=== PATIENT | male | born 1955 | race Caucasian/White ===

== ENCOUNTER 2022-10-08 14:56 | Inpatient (IN) | payer OTHER, SELFPAY ==
[2022-10-08] VITALS (14 sets, daily range): BP systolic 111–141; BP diastolic 70–102; PULSE 89–120; RESP 12–24; TEMP 36.9–37.2; O2SAT 93–98; BMI 24.3
--- NOTE | 2022-10-08 15:40 | ED_ITS ---
HPI - General Adult General Time Seen by Provider: 15:40 Date Seen: 10/08/22 Chief complaint: Shortness of Breath/Dyspnea Stated complaint: Short of Breath worried about DVT Time Seen by Provider: 10/08/22 15:35 Source: patient and RN notes reviewed Mode of arrival: ambulatory Limitations: no limitations History of Present Illness HPI narrative: Patient is a 67-year-old male sent in from [facility] urgent care with left lower extremity discomfort pain with history DVT. His D-dimer was greater than 20 at the urgent care and he was sent here. He has a history of a DVT in this leg a few years ago after travel. He traveled to [place] in August in returned back home on September 30. He does wear compression stockings. He has also had a bit of a respiratory illness for about 2 weeks. Today started to feel short of breath but no chest pain. The shortness of breath is particularly dyspnea on exertion. No fevers or chills. His cough has been dry, present for about 2 weeks, has had sinus and nasal congestion. His pulse was 113 in urgent care but blood pressure was normal 132/76. He was afebrile. O2 sats 98% on room air. He does note with activity his O2 sats dipped down to about 92% but come right back up. His white blood count was normal at 8700, hemoglobin normal at 13.6, platelet count [id number]. His electrolytes were all normal, creatinine normal at 0.98 with an estimated GFR of 85. Patient had a left lower extremity DVT a few years ago thought to be provoked by travel, has had a hemorrhoidectomy. Does have reflux for which he takes ome prazole daily. Otherwise denies any other medical issues. Patient reports that he took Eliquis with his DVT prior. No tobacco products, does have 2-3 alcoholic beverages a day in the form of wine. Related Data Home Medications Medication Instructions Recorded Confirmed omeprazole 20 mg capsule,delayed mg 10/08/22 release Allergies Allergy/AdvReac Type Severity Reaction Status Date / Time No Known Drug Allergies Allergy Verified 10/08/22 15:41 Review of Systems Status of ROS: Reports: 10 or more systems reviewed and unremarkable except as noted in History and below [facility] Medical History (Updated 10/08/22 @ 21:25 by Johana Cruz MD) DVT (deep venous thrombosis) Surgical History (Updated 10/08/22 @ 21:25 by Johana Cruz MD) H/O: hemorrhoidectomy History of colonoscopy Social History (Updated 10/08/22 @ 21:20 by Johana Cruz MD) Narrative: Lives with in [place]. 2 adult children. 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 PCP: Bo Smoking Status: Never smoker Do you use any of these nicotine containing products: None How often do you have a drink containing alcohol: never AUDIT-C Alcohol total score: 0 Non-prescribed substance use: denies use Exam Const: Vital Signs, click to edit/add: Vital Signs - 24 hr 10/08/22 15:41 10/08/22 16:00 10/08/22 16:30 Temperature 98.9 F Pulse Rate [Right Pulse Oximeter] 115 H 104 H 103 H Respiratory Rate 24 12 20 Blood Pressure [Ri ght Upper Arm] 141/102 H 129/88 125/84 Pulse Oximetry 98 95 96 Oxygen Delivery Me thod Room Air Room Air Room Air 10/08/22 17:00 10/08/22 17:30 10/08/22 18:00 Temperature Pulse Rate [Right Pulse Oximeter] 105 H 108 H 120 H Respiratory Rate 21 17 24 Blood Pressure [Ri ght Upper Arm] 111/84 126/82 118/86 Pulse Oximetry 95 96 96 Oxygen Delivery Me thod Room Air Room Air Room Air 10/08/22 18:30 10/08/22 19:00 10/08/22 19:30 Temperature Pulse Rate [Right Pulse Oximeter] 112 H 111 H 107 H Respiratory Rate 17 22 16 Blood Pressure [Ri ght Upper Arm] 129/85 119/79 113/80 Pulse Oximetry 95 95 94 Oxygen Delivery Me thod Room Air Room Air Room Air 10/08/22 20:00 10/08/22 20:30 Temperature Pulse Rate [Right Pulse Oximeter] 105 H 109 H Respiratory Rate 16 14 Blood Pressure [Ri ght Upper Arm] 111/76 128/84 Pulse Oximetry 93 97 Oxygen Delivery Me thod Room Air Room Air Documenting provider has reviewed patient's vital signs: yes Common normals: no apparent distress, average body habitus, oriented x3, no limitations, healthy appearing, alert and well nourished General appearance: cooperative, comfortable, well kempt and well developed HENMT: Common normals: normocephalic, head/scalp atraumatic and hearing grossly normal bilaterally Head and scalp: normocephalic and atraumatic Eye: Common normals: PERRL, EOMs intact bilaterally, conjunctivae normal and no scleral icterus Conjunctiva: conjunctiva(e) normal Pupil: PERRL Neck & C-Spine: Common normals: full ROM, no lymphadenopathy, supple, no meningeal signs, no JVD and thyroid normal Thyroid: thyroid normal Resp: Common normals: normal respiratory effort, no retractions, no use of accessory muscles and clear to auscultation bilaterally Auscultation: clear to auscultation bilaterally Cardio: Common normals: no JVD, regular rhythm, S1 normal heart sound, S2 normal heart sound, no gallops, no clicks and no murmurs Rate: tachycardic Rhythm: regular rhythm Heart sounds: S1 normal and S2 normal GI: Common normals: Normal to inspection, nondistended, normoactive bowel sounds present, soft to palpation, non-tender, no hepatosplenomegaly and no masses Palpation: soft and no hepatosplenomegaly Extremity: Other: Has bilateral compression stockings on, no underlying edema. Neuro: Common normals: oriented x3 Sensorium/orientation: alert Meningeal signs: no meningeal signs Psych: Appearance: well kempt Course Course Hospital Course: Reviewed with patient that we will get ultrasounds, CT of his chest given the fact that he is tachycardic. He is not hypoxic and is hemodynamically stable. Do need an EKG and a troponin on him. He will be monitored on pulse oximetry for sure here. Do feel there is a likely chance of thromboembolic disease here. Reevaluation(s) Reevaluation #1: Reviewed with patient and his he large clot burden in his left leg. Radiology did actually call me about this as well. There is clot from the proximal femoral vein through the popliteal to both peroneal veins. He states it is occlusive. Reviewed with patient and his that I will almost guarantee that we will see a pulmonary embolus as well. Have reviewed with them that I have talked to the continuous improvement analyst at [place], we are going to initiate PE protocol heparin with bolus and drip. If we do moved to lytic therapy, will stop the heparin. Patient has no acute contraindications to heparin or lytic therapy from a discussion with him at this time. They understand that the continuous improvement analyst will be making the call for lytics based on his CT PE protocol. Time: 17:55 Reevaluation #2: The hospitalist service has been able to make a bed available for this patient. They will be assuming care shortly. I have reviewed the specifics of care as reviewed with the continuous improvement analyst with Dr. Cruz. Time: 21:31 Consultations Consultation #1: Called [facility] and continuous improvement analyst was meseret. Dr. Hansen did call back. We reviewed the clot in patient's left lower extremity and my concern for PE based on clinical findings. He recommended that we do start with the PE protocol heparin, both bolus and drip. He will consider lytic therapy based on our findings off the chest CT PE protocol. We are waiting that to be done at this time. I will contact him once I have that information. Time: 17:22 Consultation #2: Spoke with the continuous improvement analyst whom is now Dr. Singh. Reviewed the CT PE findings with significant clot burden. Went over the full case with her. She agreed half dose thrombolytics. We will be using all to place 10 mg of for the initial bolus and then 40 mg over 2 hours. Once the 40 mg does is done, monitor hourly PTTs, once under 70, then restart heparin at the drip rate, no bolus. Will stop the heparin well he is getting the thrombolytics. Usually these patients are in the ICU for 24 hours post tPA. Once they are stable and no complications at the 24 hour mendoza, can be moved from ICU status and oral anticoagulants initiated. I did review this with the continuous improvement analyst. At this time there are no beds in our facility or elsewhere. We are on the wait list for [facility] but it does not look promising. If patient does decompensate, we are to call them back which we will certainly do. I will order an echo for tomorrow, will follow his troponins. Time: 17:36 Vital Signs Vital signs: Initial Vital Signs Temperature 98.9 F 10/08/22 15:41 Temperature Source Temporal Artery Scan 10/08/22 15:41 Pulse Rate 115 H 10/08/22 15:41 Respiratory Rate 24 10/08/22 15:41 Blood Pressure 141/102 H 10/08/22 15:41 Blood Pressure Mean 115 12/29/22 15:41 Blood Pressure Position Sitting 10/08/22 15:41 Pulse Oximetry 98 10/08/22 15:41 Oxygen Delivery Method 10/08/22 15:41 Vital Signs Temperature 98.9 F 10/08/22 15:41 Pulse Rate 115 H 10/08/22 15:41 Respiratory Rate 24 10/08/22 15:41 Blood Pressure 141/102 H 10/08/22 15:41 Pulse Oximetry 98 10/08/22 15:41 Oxygen Delivery Method 10/08/22 15:41 Temperature 98.9 F 10/08/22 15:41 Pulse Rate 109 H 10/08/22 20:30 Respiratory Rate 14 10/08/22 20:30 Blood Pressure 128/84 10/08/22 20:30 Pulse Oximetry 97 10/08/22 20:30 Oxygen Delivery Method 10/08/22 20:30 Medical Decision Making Lab Data Lab results reviewed: Yes I reviewed the patient's lab results Labs: Lab Results 10/08/22 10/08/22 10/08/22 Range/Units 16:15 16:15 16:15 INR 1.03 (0.91-1.10) APTT 30 (23-33) Seconds Total Bilirubin 0.5 (0.1-1.5) mg/dL Direct Bilirubin 0.3 (0.0-0.5) mg/dL AST 44 H (12-35) U/L ALT 33 (4-50) U/L Alkaline Phosphatase 82 (40-150) U/L Total Protein 7.6 (6.0-8.3) g/dL Albumin 4.4 (3.3-5.0) g/dL SARS-CoV-2 (PCR) (Negative) POC Troponin I 0.07 H (0.01-0.04) ng/ml 10/08/22 Range/Units 16:18 INR (0.91-1.10) APTT (23-33) Seconds Total Bilirubin (0.1-1.5) mg/dL Direct Bilirubin (0.0-0.5) mg/dL AST (12-35) U/L ALT (4-50) U/L Alkaline Phosphatase (40-150) U/L Total Protein (6.0-8.3) g/dL Albumin (3.3-5.0) g/dL SARS-CoV-2 (PCR) Negative SARS-CoV-2 (Negative) POC Troponin I (0.01-0.04) ng/ml Imaging Data CT scan - chest: Attestation: I have reviewed the pertinent imaging results. Radiologist's impression: Patient: INGRIS LUNDY Facility:?[facility] Patient ID:?[id number] Site Patient ID:?[id number]. Site :?[id number] Study:?CT Chest Angio w/ 95cc [id number] 6:01:40 PM Ordering Physician:?Kasandra Starr Final Report: INDICATION: Tachycardia. TECHNIQUE: CT chest PE was acquired with 95 cc Isovue 370 IV contrast. COMPARISON: None. FINDINGS: Heart and vasculature: Contrast opacification of the pulmonary arterial tree is adequate. Multi focal pulmonary emboli involving the distal left main pulmonary artery extending into the left upper and lower lobe lobar/segmental/subsegmental branches, as well as the right upper lobar and right middle/lower segmental/subsegmental pulmonary arteries. Heart size is normal. Thoracic aorta and pulmonary artery are normal in caliber. Lungs and pleura: Scattered atelectasis. Focal right lower lobe ground-glass opacification, possibly infectious/inflammatory in etiology or related to pulmonary infarction. No large focal consolidations. No pleural effusions, pleural thickening, or pneumothorax. Lymph nodes/mediastinum: No mediastinal, hilar, or axillary adenopathy. Chest wall: No masses. Upper abdomen: No acute or significant findings. Bones: Unremarkable for age. IMPRESSION: Multifocal pulmonary emboli involving the distal left main pulmonary artery extending into the left upper and lower lobar/segmental/subsegmental branches and in the right upper lobar and right middle/lower segmental/subsegmental pulmonary arteries. Mild flattening of the interventricular septum which could suggest right heart strain. Case discussed with Dr. Ramos at 4:18 p.m. on 10/08/2022. Please note that all CT scans at this facility use dose modulation, iterative reconstruction, and/or weight-based dosing when appropriate to reduce radiation dose to as low as reasonably achievable. Dictated by Fermin Munguia MD @ 10/08/2022 6:23:23 PM (Electronic Signature) Venous US: Attestation: I have reviewed the pertinent imaging results. Radiologist's impression: Patient: INGRIS LUNDY Facility:?[facility] Patient ID:?[id number] Site Patient ID:?[id number]. Site :?[id number] Study:?US Extremity Bilateral -10/08/2022 5:15:22 PM Ordering Physician:Suleiman Starr Final Report: INDICATION: Leg pain and swelling. TECHNIQUE: Ultrasound venous duplex bilateral lower extremity. Compression venous exam was performed using morales-scale, color Doppler, and spectral Doppler analysis. COMPARISON: None. FINDINGS: Deep veins: Sonographic imaging of the bilateral common femoral, deep femoral, superficial femoral, popliteal, posterior tibial veins demonstrates extensive occlusive thrombus in the left leg extending from the proximal left femoral vein just after the junction of the greater saphenous vein to the mid peroneal vein in the calf. The other vessels are fully compressible with normal color Doppler blood flow. Superficial veins: Greater saphenous veins are fully compressible. Soft tissues: No popliteal cyst. IMPRESSION: Left leg DVT extending from the proximal femoral vein to the mid peroneal veins. Findings were reported to Dr. Villasenor on 10/08/2022 at 5:43 p.m. Dictated by Lee Fuentes MD @ 10/08/2022 5:58:58 PM (Electronic Signature) ECG Data Attestation: I personally reviewed and interpreted this ECG as follows: (Sinus tachycardia, 103 beats per minute. Incomplete right bundle branch block. QT corrected 453 milliseconds.) Prior ECG tracings: not available for review Critical Care Time Critical Care Time Total Critical Care Time in Minutes: 45 Discharge Plan Discharge Clinical Impression: Elevated troponin, DVT of lower limb, acute, Pulmonary embolism Prescriptions: No Action omeprazole 20 mg capsule,delayed release(DR/EC) Follow Up/Referrals: Kole Soriano MD [Primary Care Provider] -
--- NOTE | 2022-10-08 15:49 | CRLHL7_ITS ---
For Patients: As a result of the Century Cures Act, medical imaging exams and procedure reports are released immediately into your electronic medical record. You may view this report before your referring provider. If you have questions, please contact your health care provider. INDICATION: Leg pain and swelling. TECHNIQUE: Ultrasound venous duplex bilateral lower extremity. Compression venous exam was performed using morales-scale, color Doppler, and spectral Doppler analysis. COMPARISON: None. FINDINGS: Deep veins: Sonographic imaging of the bilateral common femoral, deep femoral, superficial femoral, popliteal, posterior tibial veins demonstrates extensive occlusive thrombus in the left leg extending from the proximal left femoral vein just after the junction of the greater saphenous vein to the mid peroneal vein in the calf. The other vessels are fully compressible with normal color Doppler blood flow. Superficial veins: Greater saphenous veins are fully compressible. Soft tissues: No popliteal cyst. IMPRESSION: Left leg DVT extending from the proximal femoral vein to the mid peroneal veins. Findings were reported to Dr. Villasenor on 10/08/2022 at 5:43 p.m. Dictated by Lee Fuentes MD @ 10/08/2022 5:58:58 PM (Electronically Signed)
--- NOTE | 2022-10-08 15:51 | CRLHL7_ITS ---
For Patients: As a result of the Century Cures Act, medical imaging exams and procedure reports are released immediately into your electronic medical record. You may view this report before your referring provider. If you have questions, please contact your health care provider. INDICATION: Tachycardia. TECHNIQUE: CT chest PE was acquired with 95 cc Isovue 370 IV contrast. COMPARISON: None. FINDINGS: Heart and vasculature: Contrast opacification of the pulmonary arterial tree is adequate. Multi focal pulmonary emboli involving the distal left main pulmonary artery extending into the left upper and lower lobe lobar/segmental/subsegmental branches, as well as the right upper lobar and right middle/lower segmental/subsegmental pulmonary arteries. Heart size is normal. Thoracic aorta and pulmonary artery are normal in caliber. Lungs and pleura: Scattered atelectasis. Focal right lower lobe ground-glass opacification, possibly infectious/inflammatory in etiology or related to pulmonary infarction. No large focal consolidations. No pleural effusions, pleural thickening, or pneumothorax. Lymph nodes/mediastinum: No mediastinal, hilar, or axillary adenopathy. Chest wall: No masses. Upper abdomen: No acute or significant findings. Bones: Unremarkable for age. IMPRESSION: Multifocal pulmonary emboli involving the distal left main pulmonary artery extending into the left upper and lower lobar/segmental/subsegmental branches and in the right upper lobar and right middle/lower segmental/subsegmental pulmonary arteries. Mild flattening of the interventricular septum which could suggest right heart strain. Case discussed with Dr. Ramos at 4:18 p.m. on 10/08/2022. Please note that all CT scans at this facility use dose modulation, iterative reconstruction, and/or weight-based dosing when appropriate to reduce radiation dose to as low as reasonably achievable. Dictated by Fermin Munguia MD @ 10/08/2022 6:23:23 PM (Electronically Signed)
[2022-10-08 16:56] LABS: Troponin, Point-of-Care* 0.07 ng/ml (0.01-0.04)
[2022-10-08 16:57] LABS: INR 1.03 (0.91-1.10); Prothrombin Time 14.1 Seconds
[2022-10-08 16:58] LABS: Partial Thromboplastin Time* 30 Seconds (23-33)
[2022-10-08 16:59] LABS: Albumin* 4.4 g/dL (3.3-5.0)
[2022-10-08 17:01] LABS: Aspartate Amino Transferase* 44 U/L (12-35); Bilirubin Direct* 0.3 mg/dL (0.0-0.5); Bilirubin Total* 0.5 mg/dL (0.1-1.5); Total Protein* 7.6 g/dL (6.0-8.3)
[2022-10-08 17:02] LABS: Alanine Aminotransferase* 33 U/L (4-50); Alkaline Phosphatase* 82 U/L (40-150)
[2022-10-08 17:10] LABS: SARS PCR* Negative SARS-CoV-2 (Negative)
[2022-10-08] MEDS: HEPARIN 5,000 UNIT/0.5 ML INJ 5600 UNIT IVP (18:05)
--- NOTE | 2022-10-08 18:05 | ED.NURSE ---
started heparin bolus 5600 units now and infusion 1250 units per hr now. PTT 30 and INR 1.03. (started at 1805) needs a redraw of PTT at 0005 10/09/22). Flower Raymundo Rn was the cosinger in the dosaging.
[2022-10-08] MEDS: HEPARIN 25,000 UNIT/500 ML BAG 25 UNIT IV (18:17)
[2022-10-08] MEDS: GUAIF/CODEINE 200/20MG/10 ML SOLUTION PO ×2 (19:45→22:31)
--- NOTE | 2022-10-08 20:02 | ED.NURSE ---
stopped the heparin infusion and given the alteplase 10 mg ivp over 10 minutes.
--- NOTE | 2022-10-08 20:15 | ED.NURSE ---
Given alteplase 40 mg drip at 20cc/hr for 2 hours. no bleeding noted and is at the bedside. patient continues with cough.
--- NOTE | 2022-10-08 20:42 | W.PC.EDHO ---
Primary Language: Preferred Language: Orientation Status: [] Alert & Oriented [] Slight Confusion [] Known Dx Dementia Transfers By: [] Assist of 1 [] Assist of 2 [] Lift Description of Symptoms ED Triage Present Problem pt sent here from for elevated D Dimer >20, pt Description feeling more profoundly short of breath today, has had recent viral illness about 2 weeks ago with dry cough ED Triage Date of Onset of 10/08/22 Symptoms Female History Patient Pain Pain Description [Left Leg] Dull, Achy Pain Intensity [Left Leg] 4 Pain Intensity 5 Pain Intensity 5 Pain Scale Used [Left Leg] Numeric (1 - 10) Pain Scale Used Numeric (1 - 10) Pain Scale Used Numeric (1 - 10) IV Insertion/Site Date of IV Line Insertion [ 10/08/22 Right Antecubital] Oxygen Administration Pulse Oximetry 98 Oxygen Delivery Method Room Air Cardiac Monitoring EKG Method 12 Lead EKG Method 12 Lead
--- NOTE | 2022-10-08 20:45 | ED.NURSE ---
patient continues to do well with receiving the alteplase at 40mg over two hours. no signs of bleeding noted. continues to cough after having the robitussin with codeine. is present in the room.
--- NOTE | 2022-10-08 20:52 | P.IMHP_ITS ---
Hospitalist- H&P: HPI History of Present Illness Date Seen: 10/08/22 Chief complaint: Short of Breath worried about DVT Narrative: Jacob Armstrong is a 67 year old male who presents to the [facility] from an outside urgent care for DVT/PE workup. He was seen in today for a 5-7 day history of cough and dyspnea. No fevers. No sick contacts. History of provoked left lower extremity DVT in August of 2020 after a long car trip. He was treated with Eliquis for 1 year, then seen by PCP and Hematology with a negative D-Dimer and LLE ultrasound, so anticoagulation discontinued. He notably travelled to [facility] by plane recently, returning on 09/30. While in urgent care, he had a negative chest x-ray, normal CBC, normal BMP. D-dimer returned > 20, so patient was sent here for further workup. ER course and findings: - multifocal pulmonary emboli bilaterally with mild flattening of interventricular septum - left leg DVT extending from proximal femoral vein to mid peroneal veins - ED physician discussed the case with applicator sprayer at [facility]; unfortunately, no beds available at any tertiary care facilities within our transfer region - tPA initiated, will start heparin per plan discussed below Jacob is generally healthy. Past medical, surgical, family, social history updated below. Review of Systems Status of ROS: Reports: 10 or more systems reviewed and unremarkable except as noted in History and below [facility] Medical History (Updated 10/08/22 @ 22:23 by Johana Cruz MD) DVT (deep venous thrombosis) Surgical History (Updated 10/08/22 @ 21:25 by Johana Cruz MD) H/O: hemorrhoidectomy History of colonoscopy Social History (Updated 10/08/22 @ 21:20 by Johana Cruz MD) Narrative: Lives with in [place]. 2 adult children. 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 PCP: Bo Smoking Status: Never smoker Do you use any of these nicotine containing products: None How often do you have a drink containing alcohol: never AUDIT-C Alcohol total score: 0 Non-prescribed substance use: denies use Meds Home Medications and Allergies Home Medications Medication Instructions Recorded Confirmed Type omeprazole 20 mg capsule,delayed mg 10/08/22 History release Allergies Allergy/AdvReac Type Severity Reaction Status Date / Time No Known Drug Allergies Allergy Verified 10/08/22 15:41 Exam Narrative: Exam Narrative: GEN: Alert and oriented, answering questions appropriately in bed. Nontoxic in appearance HEENT: Normal external ears, EOMIs bilaterally, no scleral icterus CV: Sinus tachycardia with heart rate in the 100 range during my exam, No concerning murmurs, rubs, or gallops R: LCTA bilaterally without concerning wheezing, rales, or rhonchi, air movement adequate Ext: No concerning edema of lower extremity, normal pulses at bilateral dorsalis pedis sites Skin: No concerning skin lesions or rashes on exposed skin Neuro: Nonfocal Psych: Appropriate Const: Vital Signs, click to edit/add: Vital Signs - 24 hr 10/08/22 15:41 Temperature 98.9 F Pulse Rate [Right Pulse Oximeter] 115 H Respiratory Rate 24 Blood Pressure [Ri ght Upper Arm] 141/102 H Pulse Oximetry 98 Oxygen Delivery Me thod Room Air Hospitalist - H&P: Result Labs Labs: Liver Function 10/08/22 Range/Units 16:15 Total Bilirubin 0.5 (0.1-1.5) mg/dL Direct Bilirubin 0.3 (0.0-0.5) mg/dL AST 44 H (12-35) U/L ALT 33 (4-50) U/L Alkaline Phosphatase 82 (40-150) U/L Albumin 4.4 (3.3-5.0) g/dL Assessment and Plan Assessment and plan (1) Pulmonary embolism: Problem comment: - thrombolytics given in ED - will follow hourly PTTs; when < 70, will start heparin (no bolus) - transition to oral anticoagulants at 24 hours (12/30 pm) - reviewed case with grooming salon manager at [facility]; patient on their wait list and hemodynamically stable at this time Status: Acute (2) DVT of lower limb, acute: Status: Acute (3) Elevated troponin: Problem comment: - likely secondary to demand ischemia from pulmonary emboli - follow troponin, TTE ordered Status: Acute Plan - per above - full code status
[2022-10-08 23:39] LABS: Partial Thromboplastin Time* 48 Seconds (23-33)
--- NOTE | 2022-10-08 23:54 | PC.NURSE ---
Shift [id number]- Patient arrives to floor at approximately 2200 with Yajaira. He is pleasant and cooperative, denies pain, denies SOB except for a little with exertion. He states this is better than earlier today. Urinary output of 700ccs.
[2022-10-09] VITALS (10 sets, daily range): BP systolic 109–131; BP diastolic 76–88; PULSE 81–101; RESP 14–18; TEMP 36.8–37.1; O2SAT 96–98
[2022-10-09 01:09] LABS: Troponin I* 0.06 ng/mL (0.01-0.04)
[2022-10-09 06:36] LABS: Basophils Absolute Auto 0.04 K/uL (0.00-0.30); Basophils Percent Auto 0.4 % (0.0-3.0); Eosinophils Absolute Auto 0.44 K/uL (0.00-0.50); Eosinophils Percent Auto 4.4 % (0.0-7.0); Hematocrit 40.4 % (37.0-53.0); Hemoglobin* 13.4 gm/dL (13.5-17.5); Immature Granulocytes Abs Auto 0.05 K/uL (0.00-0.30); Immature Granulocytes Pct Auto 0.5 %; Lymphocytes Percent Auto 18.4 % (20-44); Mean Corpuscular HGB Conc 33 gm/dL (32-36); Mean Corpuscular Hemoglobin 31 pg (26-34); Mean Corpuscular Volume 93 fL (80-100); Monocytes Percent Auto 9.4 % (0.0-11.0); Neutrophils Absolute Auto 6.62 K/uL (1.7-7.0); Neutrophils Percent Auto 66.9 % (42.0-72.0); Platelet Count* 268 K/uL (140-440); RDW Coefficient of Variation % 13.1 % (11.5-15.5); Red Blood Count 4.35 m/uL (4.30-5.90)
[2022-10-09 06:52] LABS: Chloride* 103 mmol/L (96-114); Slide Review Reflex No
[2022-10-09 06:53] LABS: Potassium* 4.1 mmol/L (3.6-5.1); Sodium* 136 mmol/L (135-149)
[2022-10-09 06:55] LABS: Aspartate Amino Transferase* 28 U/L (12-35); Bilirubin Total* 0.7 mg/dL (0.1-1.5); Carbon Dioxide* 28 mmol/L (20-32); Creatinine* 0.8 mg/dL (0.5-1.5); Est. Creatinine Clearance* 67.94; Estimated Glomerular Filt Rate 98 ml/min
[2022-10-09 06:56] LABS: Alanine Aminotransferase* 27 U/L (4-50); Alkaline Phosphatase* 76 U/L (40-150); Blood Urea Nitrogen* 10 mg/dL (7-30); Calcium* 9.3 mg/dL (8.4-10.6); Glucose* 105 mg/dL (60-115)
[2022-10-09 07:00] LABS: Partial Thromboplastin Time* 75 Seconds (23-33)
[2022-10-09 07:09] LABS: Troponin I* 0.03 ng/mL (0.01-0.04)
[2022-10-09 07:12] LABS: Procalcitonin* 0.07 ng/mL (<0.50)
--- NOTE | 2022-10-09 07:45 | PC.NURSE ---
Patient is alert and oriented x3. Pt denies pain, N/V, SOB or chest pain. Pts lungs sounds are diminished in the anterior middle and lower lobes. Pt has saddle PEs. DVT to lower extremity. Bilateral feet cool to touch but pedal pulses intact. Pt on heparin drip. Pt is VSS. Pt is up ind with some assistants with IV pole. is stayed at bed side overnight.
[2022-10-09] MEDS: OMEPRAZOLE 20 MG CAPSULE DR 40 MG PO (09:03)
[2022-10-09 13:23] LABS: Partial Thromboplastin Time* 72 Seconds (23-33)
--- NOTE | 2022-10-09 14:23 | P.IMPN_ITS ---
Progress Note: A&P Assessment and plan (1) Pulmonary embolism: Problem details: - thrombolytics given in ED - a p.m. on 10/08/22 - will follow hourly PTTs; when < 70, will start heparin (no bolus) - transition to oral anticoagulants at 24 hours (10/09 8 pm) - reviewed case with ICU physician, Dr. Benjamin, he and I both feel that her transfer to [facility] is unnecessary at this time Status: Acute (2) DVT of lower limb, acute: Status: Acute (3) Elevated troponin: Problem details: - likely secondary to demand ischemia from pulmonary emboli - follow troponin, TTE ordered Status: Acute Subjective Date Seen: 10/09/22 Interval history: Daily Progress Note - Hospital Medicine #: 2 CC: Saddle pulmonary embolus with mild right heart strain status post tPA. Currently on heparin drip. OVERNIGHT UPDATES FROM STAFF & MED, LAB, IMAGING UPDATES Very stable night. No oxygen requirement. Pain free. Does have some mild shortness of breath with exertion. No obvious side effects from his tPA infusion at 8:00 p.m. on 10/08/2022. His heart rate and blood pressure have normalized. His O2 sats are up even on room air. I suspect clot burden has increased immensely. His troponin has down trended this morning. I spent over 40 minutes with the family on 2 different room visits discussing the events and precautions required. Review of Systems: See subjective Cardiac: No chest pain or significant pressure palpitations. Respiratory: Mild shortness of breath and dry cough GI: No abdominal bloating Objective: Looks well Vitals: see above Lungs: Clear. Cardiac: S1S2. Disposition/Potential discharge - Likely to return to previous living situation. Total time is 35 minutes with greater than 50% spent in counseling and coordination of care. Exam Const: Vital Signs, click to edit/add: Vital Signs - 24 hr 10/08/22 15:41 10/08/22 16:00 10/08/22 16:30 Temperature 98.9 F Pulse Rate Pulse Rate [Pulse Oximeter] Pulse Rate [Right Pulse Oximeter] 115 H 104 H 103 H Respiratory Rate 24 12 20 Blood Pressure [Le ft Arm] Blood Pressure [Ri ght Upper Arm] 141/102 H 129/88 125/84 Pulse Oximetry 98 95 96 Oxygen Delivery Me thod Room Air Room Air Room Air 10/08/22 17:00 10/08/22 17:30 10/08/22 18:00 Temperature Pulse Rate Pulse Rate [Pulse Oximeter] Pulse Rate [Right Pulse Oximeter] 105 H 108 H 120 H Respiratory Rate 21 17 24 Blood Pressure [Le ft Arm] Blood Pressure [Ri ght Upper Arm] 111/84 126/82 118/86 Pulse Oximetry 95 96 96 Oxygen Delivery Me thod Room Air Room Air Room Air 10/08/22 18:30 10/08/22 19:00 10/08/22 19:30 Temperature Pulse Rate Pulse Rate [Pulse Oximeter] Pulse Rate [Right Pulse Oximeter] 112 H 111 H 107 H Respiratory Rate 17 22 16 Blood Pressure [Le ft Arm] Blood Pressure [Ri ght Upper Arm] 129/85 119/79 113/80 Pulse Oximetry 95 95 94 Oxygen Delivery Me thod Room Air Room Air Room Air 10/08/22 20:00 10/08/22 20:30 10/08/22 21:30 Temperature 98.5 F Pulse Rate Pulse Rate [Pulse Oximeter] Pulse Rate [Right Pulse Oximeter] 105 H 109 H 89 Respiratory Rate 16 14 16 Blood Pressure [Le ft Arm] Blood Pressure [Ri ght Upper Arm] 111/76 128/84 125/70 Pulse Oximetry 93 97 97 Oxygen Delivery Me thod Room Air Room Air Room Air 10/08/22 22:14 10/08/22 22:15 10/09/22 01:30 Temperature 98.5 F 98.5 F Pulse Rate Pulse Rate [Pulse Oximeter] 106 H Pulse Rate [Right Pulse Oximeter] 89 Respiratory Rate 16 16 14 Blood Pressure [Le ft Arm] 130/81 Blood Pressure [Ri ght Upper Arm] 125/70 Pulse Oximetry 98 Oxygen Delivery Me thod Room Air 10/09/22 01:28 10/09/22 03:00 10/09/22 03:00 Temperature 98.5 F Pulse Rate 81 Pulse Rate [Pulse Oximeter] 91 Pulse Rate [Right Pulse Oximeter] Respiratory Rate 14 Blood Pressure [Le ft Arm] 113/86 Blood Pressure [Ri ght Upper Arm] Pulse Oximetry 98 98 Oxygen Delivery Me thod Room Air 10/09/22 08:01 10/09/22 07:00 10/09/22 07:00 Temperature Pulse Rate 95 Pulse Rate [Pulse Oximeter] Pulse Rate [Right Pulse Oximeter] Respiratory Rate 16 16 Blood Pressure [Le ft Arm] Blood Pressure [Ri ght Upper Arm] Pulse Oximetry 96 Oxygen Delivery Me thod Room Air 10/09/22 07:00 Temperature 98.5 F Pulse Rate Pulse Rate [Pulse Oximeter] 95 Pulse Rate [Right Pulse Oximeter] Respiratory Rate 16 Blood Pressure [Le ft Arm] 122/76 Blood Pressure [Ri ght Upper Arm] Pulse Oximetry 96 Oxygen Delivery Me thod Room Air Labs Labs: Laboratory Results - last 24 hr 10/08/22 10/08/22 10/08/22 16:15 16:15 16:15 WBC RBC Hgb Hct MCV MCH MCHC RDW Coeff of Jennifer Plt Count Neut % (Auto) Lymph % (Auto) [place] % (Auto) Eos % (Auto) Baso % (Auto) Neut # (Auto) Lymph # (Auto) [place] # (Auto) Eos # (Auto) Baso # (Auto) INR 1.03 APTT 30 Sodium Potassium Chloride Carbon Dioxide BUN Creatinine Estimated Creat Clear Estimated GFR Glucose Calcium Total Bilirubin 0.5 Direct Bilirubin 0.3 AST 44 H ALT 33 Alkaline Phosphatase 82 Troponin I Total Protein 7.6 Albumin 4.4 Procalcitonin SARS-CoV-2 (PCR) POC Troponin I 0.07 H 10/08/22 10/08/22 10/08/22 16:18 23:05 23:05 WBC RBC Hgb Hct MCV MCH MCHC RDW Coeff of Jennifer Plt Count Neut % (Auto) Lymph % (Auto) [place] % (Auto) Eos % (Auto) Baso % (Auto) Neut # (Auto) Lymph # (Auto) [place] # (Auto) Eos # (Auto) Baso # (Auto) INR APTT 48 H Sodium Potassium Chloride Carbon Dioxide BUN Creatinine Estimated Creat Clear Estimated GFR Glucose Calcium Total Bilirubin Direct Bilirubin AST ALT Alkaline Phosphatase Troponin I 0.06 H* Total Protein Albumin Procalcitonin SARS-CoV-2 (PCR) Negative SARS-CoV-2 POC Troponin I 10/09/22 10/09/22 10/09/22 06:15 06:15 06:15 WBC 9.90 RBC 4.35 Hgb 13.4 L Hct 40.4 MCV 93 MCH 31 MCHC 33 RDW Coeff of Jennifer 13.1 Plt Count 268 Neut % (Auto) 66.9 Lymph % (Auto) 18.4 L [place] % (Auto) 9.4 Eos % (Auto) 4.4 Baso % (Auto) 0.4 Neut # (Auto) 6.62 Lymph # (Auto) 1.80 [place] # (Auto) 0.90 Eos # (Auto) 0.44 Baso # (Auto) 0.04 INR APTT 75 H Sodium 136 Potassium 4.1 Chloride 103 Carbon Dioxide 28 BUN 10 Creatinine 0.8 Estimated Creat Clear 67.94 Estimated GFR 98 Glucose 105 Calcium 9.3 Total Bilirubin 0.7 Direct Bilirubin AST 28 ALT 27 Alkaline Phosphatase 76 Troponin I 0.03 Total Protein 7.0 Albumin 4.0 Procalcitonin 0.07 SARS-CoV-2 (PCR) POC Troponin I 10/09/22 12:44 WBC RBC Hgb Hct MCV MCH MCHC RDW Coeff of Jennifer Plt Count Neut % (Auto) Lymph % (Auto) [place] % (Auto) Eos % (Auto) Baso % (Auto) Neut # (Auto) Lymph # (Auto) [place] # (Auto) Eos # (Auto) Baso # (Auto) INR APTT 72 H Sodium Potassium Chloride Carbon Dioxide BUN Creatinine Estimated Creat Clear Estimated GFR Glucose Calcium Total Bilirubin Direct Bilirubin AST ALT Alkaline Phosphatase Troponin I Total Protein Albumin Procalcitonin SARS-CoV-2 (PCR) POC Troponin I
[2022-10-09] MEDS: HEPARIN 25,000 UNIT/500 ML BAG 25 UNIT IV (16:47)
--- NOTE | 2022-10-09 17:58 | PC.NURSE ---
PATIENT PLEASANT AND COOPERATIVE, ALERT AND ORIENTED, BEDREST UNTIL 8PM TONIGHT PER MD, PATIENT DECLINING SOB AT REST, HAD SOB PRIOR TO ADMISSION WITH ACTIVITY, DECLINING PAIN, DRY COUGH WITH DEEP BREATHS, HEPARIN DRIP PER PROTOCOL, TELE SHOWING NSR, VOIDING, FAMILY PRESENT AT BEDSIDE AND SUPPORTIVE.
[2022-10-09 18:59] LABS: Partial Thromboplastin Time* 63 Seconds (23-33)
[2022-10-09] MEDS: APIXABAN 5 MG TABLET 10 MG PO (20:08)
[2022-10-09] MEDS: SODIUM CHLORIDE 0.9 % (FLUSH) 10 ML SYRINGE 5 ML IVF (20:09)
[2022-10-09] MEDS: GUAIF/CODEINE 200/20MG/10 ML SOLUTION PO (22:03)
[2022-10-09] MEDS: DOCUSATE SODIUM 100 MG CAPSULE PO (22:03)
[2022-10-10 01:28] VITALS: O2SAT 97
[2022-10-10 03:00] VITALS: BP 120/75; PULSE 85; RESP 16; TEMP 36.6; O2SAT 96
--- NOTE | 2022-10-10 05:13 | PC.NURSE ---
[id number] Heparin drip stopped approx 1999, Eliquis administered, pt ambulated halls x2, tolerated activity well, did acknowledge slight SOB, but able to maintain a conversation while ambulating. Maintained sats during rest and activity in upper 90's. Denies chest pain, pain with breathing, headache, lightheaded or dizziness.
[2022-10-10] MEDS: OMEPRAZOLE 20 MG CAPSULE DR 40 MG PO (05:24)
[2022-10-10 06:29] LABS: HCO3 VBG 30 mmol/L (21-28); PCO2 VBG 46 mmHG (40-50); PO2 VBG 40.6 mmHG (25-47); pH VBG 7.427 (7.32-7.43)
[2022-10-10 06:32] LABS: Hemoglobin* 13.1 gm/dL (13.5-17.5)
[2022-10-10 06:52] LABS: Chloride* 103 mmol/L (96-114); Sodium* 136 mmol/L (135-149)
[2022-10-10 06:53] LABS: Potassium* 4.5 mmol/L (3.6-5.1)
[2022-10-10 06:55] LABS: Carbon Dioxide* 27 mmol/L (20-32); Creatinine* 0.8 mg/dL (0.5-1.5); Est. Creatinine Clearance* 67.94; Estimated Glomerular Filt Rate 98 ml/min
[2022-10-10 06:56] LABS: Blood Urea Nitrogen* 11 mg/dL (7-30); Calcium* 9.2 mg/dL (8.4-10.6); Glucose* 94 mg/dL (60-115)
[2022-10-10 07:00] VITALS: BP 107/82; PULSE 97; RESP 16; TEMP 36.9; O2SAT 95; O2SAT 96
[2022-10-10] MEDS: APIXABAN 5 MG TABLET 10 MG PO (08:57)
--- NOTE | 2022-10-10 10:35 | PC.NURSE ---
Discharge note: Pt a/o and independent, moving well throughout his room and ambulating hallways without SOB. SpO2 96% on RA. Pt denies any CP or pressure and VS WNL. LS COA. Pt given 10mg of Eliquis this morning prior to discharge. Pt and his Yajaira verbalized understanding of discharge instructions and follow up appointments. Pt was discharged independently, accompanied by his at 1038.
--- NOTE | 2022-10-10 16:00 | P.DS_ITS ---
DS: Providers Provider Date Seen: 10/10/22 Primary care physician: Kole Soriano MD Attending Physician on discharge: Rand Jordan MD [place] Hospitalist Date of Discharge: 10/10/22 DS: Diagnosis Discharge Diagnosis (1) Pulmonary embolism: Status: Acute Problem details: - thrombolytics given in ED - 8 p.m. on 10/08/22 - will follow hourly PTTs; when < 70, will start heparin (no bolus) - transition to oral anticoagulants at 24 hours (10/09 8 pm) - reviewed case with ICU physician, Dr. Benjamin, he and I both feel that her transfer to [facility] is unnecessary at this time (2) DVT of lower limb, acute: Status: Acute Problem details: Left leg DVT extending from the proximal femoral vein to the mid peroneal veins. (3) Elevated troponin: Status: Acute Problem details: - likely secondary to demand ischemia from pulmonary emboli - follow troponin, TTE ordered DS: Summary Hospital Course Hospital Course: HOSPITALIST DISCHARGE SUMMARY ATTENDING PHYSICIAN: Rand Jordan MD FINAL DIAGNOSIS: Left leg DVT Pulmonary embolus HOSPITAL FOLLOWUP ISSUES: Hematology for genetic predisposition for DVT recommended Pulmonary for evaluation of lung function 7 day load apixaban, followed by lifetime use REFERRALS WHILE ADMITTED: None REFERRALS AFTER DISCHARGE: Hematology Pulmonary med BRIEF HOSPITAL COURSE: Patient is a 67-year-old with a history of DVT who presented with shortness of breath, mild leg pain. Recently traveled to [place] and hiked at elevation. In the ED he was diagnosed with an acute left lower limb DVT and bilateral extensive PE. He was hemodynamically stable. Did not need oxygen. He did have a small bump in his troponin. He was given thrombolytics and then placed on a heparin drip for 24 hours. Then transition to Eliquis following loading and then maintenance dosing protocols. He was able to ambulate the morning after we stopped heparin and had started Eliquis. He felt mildly short of breath but much improved from admission. He was given appropriate parameters for exercise/exertion and answered his questions about thrombolytics and anticoagulation. I recommended that he follow-up with a public information specialist to uncover any genetic predisposition for VTE. I also recommended a pulmonary medicine visit to assess his lung function after such a clot burden was noted. SUBSTANTIVE NOTATIONS ON IMAGING, LAB, MICROBIOLOGY/PATHOLOGY STUDIES: Hemoglobin at discharge was 13.1 Venous blood gas October 10 was unremarkable Initial troponin on 10/08 was 0.06, the next day at 10/09 it was back to normal 0.03 DVT study Left leg DVT extending from the proximal femoral vein to the mid peroneal veins. CTA Multifocal pulmonary emboli involving the distal left main pulmonary artery extending into the left upper and lower lobar/segmental/subsegmental branches and in the right upper lobar and right middle/lower segmental/subsegmental pulmonary arteries. Mild flattening of the interventricular septum which could suggest right heart strain DISCHARGE MEDICATIONS: See Reconciled list - SIGNIFICANT CHANGES: Adding Eliquis at 10 mg b.i.d. for 7 days, then 5 mg b.i.d. for life REVIEW OF SYSTEMS No new chest pain or dyspnea Pain controlled No voiding difficulties Tolerating diet challenge PHYSICAL EXAM: CONSTITUTIONAL: Awake, alert, insightful. No acute distress. VITAL SIGNS: see record. HEENT: Normocephalic, atraumatic. PERRL, EOMI, conjunctivae pink, no scleral icterus. Ears and nose externally normal. Pharynx normal. NECK: No JVD. No carotid bruit, no thyromegaly, no adenopathy. CHEST: Clear to auscultation bilaterally. HEART: S1 and S2 normal. Edema ABDOMEN: Soft, nontender. Normal bowel sounds. MUSCULOSKELETAL: No gross joint deformity or swelling. NEURO: Cranial nerves intact. Grossly intact. No asymmetric findings. SKIN: No rashes, petechiae, concerning changes PSYCHIATRIC: Mood euthymic. DISPOSITION: Home with his Time spent on discharge 37 minutes. . Status at Discharge Functional status at discharge: independent ambulation Overall status at discharge: patient is progressing back to baseline Time Spent with Patient Time attestation: Total time spent providing and/or coordinating discharge services: Time spent: Greater than 30 minutes Exam Const: Vital Signs, click to edit/add: Vital Signs - 24 hr 10/10/22 13:45 10/10/22 13:35 10/10/22 13:35 Temperature 99.8 F H Pulse Rate 99 Pulse Rate [Left P ulse Oximeter] 104 H Respiratory Rate 16 Blood Pressure 121/83 Blood Pressure [Le ft Upper Arm] 127/82 Pulse Oximetry 99 99 95 Oxygen Delivery Me thod Room Air 10/10/22 13:38 10/10/22 13:40 10/10/22 13:41 Temperature Pulse Rate 103 H 107 H 102 H Pulse Rate [Left P ulse Oximeter] Respiratory Rate Blood Pressure 120/77 127/82 Blood Pressure [Le ft Upper Arm] Pulse Oximetry 97 99 98 Oxygen Delivery Me thod 10/10/22 13:45 10/10/22 13:46 10/10/22 13:50 Temperature Pulse Rate 104 H 105 H 103 H Pulse Rate [Left P ulse Oximeter] Respiratory Rate Blood Pressure 127/77 Blood Pressure [Le ft Upper Arm] Pulse Oximetry 98 98 99 Oxygen Delivery Me thod 10/10/22 13:51 10/10/22 13:55 10/10/22 13:56 Temperature Pulse Rate 103 H 103 H 103 H Pulse Rate [Left P ulse Oximeter] Respiratory Rate Blood Pressure 119/75 120/75 Blood Pressure [Le ft Upper Arm] Pulse Oximetry 99 99 99 Oxygen Delivery Me thod 10/10/22 14:00 10/10/22 14:01 10/10/22 14:05 Temperature Pulse Rate 100 103 H 102 H Pulse Rate [Left P ulse Oximeter] Respiratory Rate Blood Pressure 123/76 Blood Pressure [Le ft Upper Arm] Pulse Oximetry 99 98 98 Oxygen Delivery Me thod 10/10/22 14:06 10/10/22 14:07 10/10/22 14:10 Temperature Pulse Rate 100 99 99 Pulse Rate [Left P ulse Oximeter] Respiratory Rate Blood Pressure 122/74 Blood Pressure [Le ft Upper Arm] Pulse Oximetry 99 98 99 Oxygen Delivery Me thod 10/10/22 14:31 10/10/22 14:35 10/10/22 14:40 Temperature Pulse Rate 101 H 102 H 100 Pulse Rate [Left P ulse Oximeter] Respiratory Rate Blood Pressure Blood Pressure [Le ft Upper Arm] Pulse Oximetry 98 98 98 Oxygen Delivery Me thod 10/10/22 14:45 10/10/22 14:50 10/10/22 14:55 Temperature Pulse Rate 101 H 98 108 H Pulse Rate [Left P ulse Oximeter] Respiratory Rate Blood Pressure Blood Pressure [Le ft Upper Arm] Pulse Oximetry 98 98 99 Oxygen Delivery Me thod 10/10/22 15:00 10/10/22 15:05 10/10/22 15:10 Temperature Pulse Rate 99 100 101 H Pulse Rate [Left P ulse Oximeter] Respiratory Rate Blood Pressure Blood Pressure [Le ft Upper Arm] Pulse Oximetry 97 97 97 Oxygen Delivery Me thod DS: Data Data Completed and Pending Labs on day of discharge: Labs from last 24 hours 10/10/22 10/10/22 10/10/22 13:40 13:40 13:40 WBC RBC Hgb Hct MCV MCH MCHC RDW Coeff of Jennifer Plt Count Neut % (Auto) Lymph % (Auto) [place] % (Auto) Eos % (Auto) Baso % (Auto) Neut # (Auto) Lymph # (Auto) [place] # (Auto) Eos # (Auto) Baso # (Auto) INR 1.52 H APTT 41 H Sodium Potassium Chloride Carbon Dioxide BUN Creatinine Estimated Creat Clear Estimated GFR Glucose Lactate 1.0 Calcium Total Bilirubin AST ALT Alkaline Phosphatase NT-Pro-B Natriuret Pep Total Protein Albumin SARS-CoV-2 (PCR) Negative SARS-CoV-2 POC Troponin I 10/10/22 10/10/22 10/10/22 13:40 13:40 13:35 WBC 10.33 RBC 4.47 Hgb 13.6 Hct 42.0 MCV 94 MCH 30 MCHC 32 RDW Coeff of Jennifer 12.7 Plt Count 295 Neut % (Auto) 67.1 Lymph % (Auto) 16.3 L [place] % (Auto) 11.6 H Eos % (Auto) 4.3 Baso % (Auto) 0.2 Neut # (Auto) 6.94 Lymph # (Auto) 1.70 [place] # (Auto) 1.20 H Eos # (Auto) 0.44 Baso # (Auto) 0.02 INR APTT Sodium 137 Potassium 4.9 Chloride 102 Carbon Dioxide 29 BUN 11 Creatinine 0.9 Estimated Creat Clear 67.94 Estimated GFR 94 Glucose 95 Lactate Calcium 9.5 Total Bilirubin 0.7 AST 24 ALT 27 Alkaline Phosphatase 79 NT-Pro-B Natriuret Pep < 20 Total Protein 7.5 Albumin 4.3 SARS-CoV-2 (PCR) POC Troponin I 0.00 L Discharge Plan Discharge Clinical Impression: Acute dyspnea, DVT of lower limb, acute, Pulmonary embolism Patient Disposition: Home, Self-Care Condition: Stable Instructions: Deep Vein Thrombosis (ED) Additional Instructions: Stay on Eliquis as prescribed. Recommend follow up in clinic to talk to your primary care provider about getting a study for sleep apnea. You cannot get prescribed a CPAP without having had adequate sleep study and qualifying for obstructive sleep apnea. Do recommend trying to sleep on your side or in positions where snoring will be minimized. Obviously, if you have further of these spells, develops any chest pain or any further difficulty breathing, do recommend re-evaluation. Activity Level: Activity as Tolerated Prescriptions: No Action omeprazole 20 mg capsule,delayed release(DR/EC) 20 mg PO DAILY Eliquis 5 mg Tablet 10 mg PO BID Qty: 60 0RF Rx Instructions: 10mg (2 tabs) twice a day for the week, then 1 tab twice a day - do not stop this medication unless directed by a physician prednisone 20 mg tablet doxycycline hyclate 100 mg tablet Follow Up/Referrals: Kole Soriano MD [Primary Care Provider] - Stand Alone Forms: [email or web address] Info Instructions
== END 2022-10-10 10:38 | disposition home or self-care (01) | DRG 176 ==
LOC: ED 19:53 → MEDSURG 21:57
PROVIDERS: Family Medicine; Admitting Provider Family Medicine; Emergency Provider Family Medicine; PCP Family Medicine; Visit Provider Family Medicine
DX: I26.99 Other pulmonary embolism without acute cor pulmonale (principal); I82.412 Acute embolism and thrombosis of left femoral vein; I82.453 Acute embolism and thrombosis of peroneal vein, bilateral; I82.432 Acute embolism and thrombosis of left popliteal vein; R77.8 Other specified abnormalities of plasma proteins; R06.09 Other forms of dyspnea; R53.1 Weakness; R29.810 Facial weakness; R00.0 Tachycardia, unspecified; Z98.890 Other specified postprocedural states; K21.9 Gastro-esophageal reflux disease without esophagitis; Z86.718 Personal history of other venous thrombosis and embolism; Z79.01 Long term (current) use of anticoagulants; M79.605 Pain in left leg; R60.0 Localized edema
CPT/HCPCS: 36415; 71260; 80048; 80053; 80076; 82803; 84145; 84484; 85018; 85025; 85027; 85610; 85730; 87635; 93005; 93306; 93970; 94761; 99284; 99285; A9270; J1644; J2997; Q9967

== ENCOUNTER 2022-10-10 12:53 | Outpatient (CLI) | payer OTHER, SELFPAY ==
--- NOTE | 2022-10-14 12:51 | ONC.NURNOTE ---
Addendum entered by Dinaa Medina RN 10/14/22 12:56: Talked with patients spouse and she feels it is okay to wait until Dr. Acosta is back, as patient was seen by her back in 2020. She will have patient call with any questions. Original Note: Received referral from primary care for DVT/PE. LM for primary that non-urgent/non-malignant can't be scheduled until we have a schedule for Dr. Acosta, most likely in January. Asked to be called back to be sure that this is okay or if will send elsewhere.
== END 2022-10-10 12:54 | disposition home or self-care (01) ==
LOC: AMB 10-11 15:05
PROVIDERS: PCP Family Medicine; Visit Provider Family Medicine
DX: R06.09 Other forms of dyspnea (principal)
CPT/HCPCS: A0425; A0429

== ENCOUNTER 2022-10-10 13:28 | Emergency (ER) | payer OTHER, SELFPAY ==
[2022-10-10] VITALS (44 sets, daily range): BP systolic 119–127; BP diastolic 74–83; PULSE 95–108; RESP 16; TEMP 37.7; O2SAT 95–100; BMI 24.3
--- NOTE | 2022-10-10 13:31 | CRLHL7_ITS ---
For Patients: As a result of the Cures Act, medical imaging exams and procedure reports are released immediately into your electronic medical record. You may view this report before your referring provider. If you have questions, please contact your health care provider. DATE: 10/10/2022. CLINICAL HISTORY: Left-sided deficit. TECHNIQUE: Standard helical CT image acquisition of the brain was performed. COMPARISON: Head CT dated 02/14/2016. FINDINGS: There is no intracranial hemorrhage. No extra-axial collection, mass effect, or midline shift. Jefferson-white matter differentiation is preserved. The ventricles are normal in size and morphology for patient age. 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 The calvarium is unremarkable. The orbits are unremarkable. The paranasal sinuses are unremarkable. The mastoid air cells are unremarkable. The soft tissues are unremarkable. IMPRESSION: 1. No CT evidence of acute intracranial abnormality. 2. 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 Please note that all CT scans at this facility use dose modulation, iterative reconstruction, and/or weight-based dosing when appropriate to reduce radiation dose to as low as reasonably achievable. Dictated by Richardson Long MD @ 10/10/2022 1:48:30 PM (Electronically Signed)
--- NOTE | 2022-10-10 13:36 | ED_ITS ---
HPI - General Adult General Time Seen by Provider: 13:36 Date Seen: 10/10/22 Chief complaint: Shortness of Breath/Dyspnea Stated complaint: Shortness of Breath Time Seen by Provider: 10/10/22 13:31 Source: patient, family, EMS and RN notes reviewed Mode of arrival: EMS Limitations: no limitations History of Present Illness HPI narrative: Patient is a 67-year-old male that was just discharged from the hospital here where he was hospitalized for DVT and pulmonary embolus. Patient received half does lytics with all to place 50 mg per protocol for PE due to clot burden and a significant nearly occlusive clot throughout his left lower extremity. He has been initiated on Eliquis. Just went home a few hours ago. He went to take a nap around noon. States he woke up and felt like something was smothering him, had difficulty breathing. Feels like he probably passed out. Family noted that he seemed to be gasping upon awakening from nap. He reportedly has had symptoms like this from sleep apnea in the past. He looked jefferson and horrible for family. They did call 911. EMS noted that he had the did walk to the [facility] but they thought maybe slightly left-handed weakness, slight left arm drift in slight left drooping of his face. He was brought for head CT immediately. I did see him in the CT room. He is alert conversive, GCS is 15/15. His glucose was reportedly normal for EMS. Patient states he was napping, awoke and felt like there was something on him like he could not breathe. He states he also passed out briefly. He states his vision went brown and black. He believes he came to quickly. He is not having any chest pain, no longer short of breath. I understand he was no longer tachycardic at time of discharge but is now. His daughter heard him napping and snoring. He does have sleep apnea but does not use CPAP. He awoke while she was up there and started to try to call out. He was trying to say his 's name by her guess and tried to say at multiple times. He was thrashing his head back and forth. She called for people and they decided to call 911. Related Data Home Medications Medication Instructions Recorded Confirmed omeprazole 20 mg capsule,delayed 20 mg PO DAILY 10/08/22 10/10/22 release doxycycline hyclate 100 mg tablet mg 10/10/22 prednisone 20 mg tablet mg 10/10/22 Previous Rx's Medication Instructions Recorded apixaban 5 mg tablet (Eliquis) 10 mg PO BID #60 tabs 10/10/22 Allergies Allergy/AdvReac Type Severity Reaction Status Date / Time No Known Drug Allergies Allergy Verified 10/08/22 15:41 Review of Systems Status of ROS: Reports: 10 or more systems reviewed and unremarkable except as noted in History and below PFSH PFS Medical History DVT (deep venous thrombosis) Surgical History H/O: hemorrhoidectomy History of colonoscopy Social History Narrative: Lives with in [place]. 2 adult children. 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 PCP: Bo Smoking Status: Never smoker Do you use any of these nicotine containing products: None How often do you have a drink containing alcohol: 4 or more times a week Alcohol type: wine How many standard drinks containing alcohol do you have on a typical day: 1 or 2 AUDIT-C Alcohol total score: 4 Non-prescribed substance use: denies use Caffeine: Yes (coffee) service: No Exam Narrative: Exam Narrative: GCS was 15/15 in exam min a valenzuela in the CT scanner room. He is conversive. 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 I do not see any significant left arm drift. My cursory NIH is 0 at this time. Still would proceed with head CT however, is on anticoagulants. At this time, am not having him do the CTA portion. Const: Vital Signs, click to edit/add: Vital Signs - 24 hr 10/10/22 13:45 10/10/22 13:35 10/10/22 13:35 Temperature 99.8 F H Pulse Rate 99 Pulse Rate [Left P ulse Oximeter] 104 H Respiratory Rate 16 Blood Pressure 121/83 Blood Pressure [Le ft Upper Arm] 127/82 Pulse Oximetry 99 99 95 Oxygen Delivery Me thod Room Air 10/10/22 13:38 10/10/22 13:40 10/10/22 13:41 Temperature Pulse Rate 103 H 107 H 102 H Pulse Rate [Left P ulse Oximeter] Respiratory Rate Blood Pressure 120/77 127/82 Blood Pressure [Le ft Upper Arm] Pulse Oximetry 97 99 98 Oxygen Delivery Me thod 10/10/22 13:45 10/10/22 13:46 10/10/22 13:50 Temperature Pulse Rate 104 H 105 H 103 H Pulse Rate [Left P ulse Oximeter] Respiratory Rate Blood Pressure 127/77 Blood Pressure [Le ft Upper Arm] Pulse Oximetry 98 98 99 Oxygen Delivery Me thod 10/10/22 13:51 10/10/22 13:55 10/10/22 13:56 Temperature Pulse Rate 103 H 103 H 103 H Pulse Rate [Left P ulse Oximeter] Respiratory Rate Blood Pressure 119/75 120/75 Blood Pressure [Le ft Upper Arm] Pulse Oximetry 99 99 99 Oxygen Delivery Me thod 10/10/22 14:00 10/10/22 14:01 10/10/22 14:05 Temperature Pulse Rate 100 103 H 102 H Pulse Rate [Left P ulse Oximeter] Respiratory Rate Blood Pressure 123/76 Blood Pressure [Le ft Upper Arm] Pulse Oximetry 99 98 98 Oxygen Delivery Me thod 10/10/22 14:06 10/10/22 14:07 10/10/22 14:10 Temperature Pulse Rate 100 99 99 Pulse Rate [Left P ulse Oximeter] Respiratory Rate Blood Pressure 122/74 Blood Pressure [Le ft Upper Arm] Pulse Oximetry 99 98 99 Oxygen Delivery Me thod 10/10/22 14:31 10/10/22 14:35 10/10/22 14:40 Temperature Pulse Rate 101 H 102 H 100 Pulse Rate [Left P ulse Oximeter] Respiratory Rate Blood Pressure Blood Pressure [Le ft Upper Arm] Pulse Oximetry 98 98 98 Oxygen Delivery Me thod 10/10/22 14:45 10/10/22 14:50 10/10/22 14:55 Temperature Pulse Rate 101 H 98 108 H Pulse Rate [Left P ulse Oximeter] Respiratory Rate Blood Pressure Blood Pressure [Le ft Upper Arm] Pulse Oximetry 98 98 99 Oxygen Delivery Me thod 10/10/22 15:00 10/10/22 15:05 10/10/22 15:10 Temperature Pulse Rate 99 100 101 H Pulse Rate [Left P ulse Oximeter] Respiratory Rate Blood Pressure Blood Pressure [Le ft Upper Arm] Pulse Oximetry 97 97 97 Oxygen Delivery Me thod 10/10/22 15:15 10/10/22 15:20 10/10/22 15:25 Temperature Pulse Rate 104 H 99 100 Pulse Rate [Left P ulse Oximeter] Respiratory Rate Blood Pressure Blood Pressure [Le ft Upper Arm] Pulse Oximetry 99 97 97 Oxygen Delivery Me thod 10/10/22 15:30 10/10/22 15:35 10/10/22 15:40 Temperature Pulse Rate 99 101 H 99 Pulse Rate [Left P ulse Oximeter] Respiratory Rate Blood Pressure Blood Pressure [Le ft Upper Arm] Pulse Oximetry 97 98 96 Oxygen Delivery Me thod 10/10/22 15:45 10/10/22 15:50 10/10/22 15:55 Temperature Pulse Rate 104 H 101 H 101 H Pulse Rate [Left P ulse Oximeter] Respiratory Rate Blood Pressure Blood Pressure [Le ft Upper Arm] Pulse Oximetry 97 97 99 Oxygen Delivery Me thod 10/10/22 16:00 10/10/22 16:05 10/10/22 16:10 Temperature Pulse Rate 104 H 100 96 Pulse Rate [Left P ulse Oximeter] Respiratory Rate Blood Pressure Blood Pressure [Le ft Upper Arm] Pulse Oximetry 99 98 97 Oxygen Delivery Me thod 10/10/22 16:15 10/10/22 16:20 10/10/22 16:25 Temperature Pulse Rate 100 99 99 Pulse Rate [Left P ulse Oximeter] Respiratory Rate Blood Pressure Blood Pressure [Le ft Upper Arm] Pulse Oximetry 97 98 100 Oxygen Delivery Me thod 10/10/22 16:30 10/10/22 16:35 10/10/22 16:40 Temperature Pulse Rate 95 97 96 Pulse Rate [Left P ulse Oximeter] Respiratory Rate Blood Pressure Blood Pressure [Le ft Upper Arm] Pulse Oximetry 97 97 96 Oxygen Delivery Me thod 10/10/22 16:45 Temperature Pulse Rate 98 Pulse Rate [Left P ulse Oximeter] Respiratory Rate Blood Pressure Blood Pressure [Le ft Upper Arm] Pulse Oximetry 99 Oxygen Delivery Me thod Re-evaluation done when patient back from his head CT. He looks mildly diaphoretic. Seems a bit paler than when I saw him recently. Documenting provider has reviewed patient's vital signs: yes Common normals: no apparent distress, oriented x3, no limitations, healthy appearing and alert General appearance: cooperative, comfortable, well kempt and well developed HENMT: Common normals: normocephalic, head/scalp atraumatic, hearing grossly normal bilaterally, external nose normal, nasal mucous membranes and turbinates normal, moist oral mucous membranes, oropharynx normal, dentition normal and gingiva normal Head and scalp: normocephalic and atraumatic Nose: external nose normal and nasal mucous membranes and turbinates normal Eye: Common normals: PERRL, EOMs intact bilaterally, conjunctivae normal and no scleral icterus Conjunctiva: conjunctiva(e) normal Pupil: PERRL Neck & C-Spine: Common normals: full ROM, no lymphadenopathy, supple, no meningeal signs, no JVD and thyroid normal Thyroid: thyroid normal Chest: Common normals: inspection of chest normal and palpation of chest normal Resp: Common normals: normal respiratory effort, no retractions, no use of accessory muscles and clear to auscultation bilaterally Auscultation: clear to auscultation bilaterally Cardio: Common normals: no JVD, regular rhythm, S1 normal heart sound, S2 normal heart sound, no gallops, no clicks, no murmurs and no rub Rate: tachycardic Rhythm: regular rhythm Heart sounds: S1 normal and S2 normal GI: Common normals: Normal to inspection, nondistended, normoactive bowel sounds present, soft to palpation, non-tender, no hepatosplenomegaly and no masses Palpation: soft and no hepatosplenomegaly Extremity: Other: Has his compression stockings on, no underlying edema. Neuro: Common normals: oriented x3, CN's II-XII intact bilaterally, moves all extremities, no focal motor deficits and no sensory deficits noted Sensorium/orientation: alert Meningeal signs: no meningeal signs Speech: speech normal Psych: Appearance: well kempt Course Reevaluation(s) Reevaluation #1: Reviewed with patient his chest CT PE protocol. He actually has less clot burden, there is no new pulmonary embolus. His initial troponin is normal. Will be doing a 3 hour troponin. With the noted snoring at home, family hearing him snore, awakening short of breath, do wonder if it was a combination of sleep apnea and the underlying pulmonary emboli where he was hypo oxygenating. He has not had any hypoxia while here. Of note, the sleep apnea has not ever been theoretically diagnosed. They do know he snores and has had apneic spells though. Thus, clinically that is likely probably has some degree of sleep apnea. This could be studied in the future. Patient's is scared for him to return to home but patient feels confident given the CT being improved. His head CT shortly is not suggestive of any brain bleed. This time, we will await a 3 hour troponin and review the situation once that labs back. Time: 15:16 Reevaluation #2: Have reviewed with patient and his that he remains completely undetectable in his troponin level. Patient is opting to go home, declines me talking to the hospitalist about observation. I do think this is reasonable knowing that the chest CT showing no further clot burden, actually less so than our prior CT. His troponins are normal. Time: 16:59 Vital Signs Vital signs: Initial Vital Signs Pulse Rate 99 10/10/22 13:35 Blood Pressure 121/83 10/10/22 13:35 Blood Pressure Mean 95 10/10/22 13:35 Pulse Oximetry 99 10/10/22 13:35 Vital Signs Pulse Rate 99 10/10/22 13:35 Blood Pressure 121/83 10/10/22 13:35 Pulse Oximetry 99 10/10/22 13:35 Temperature 99.8 F H 10/10/22 13:45 Pulse Rate 98 10/10/22 16:45 Respiratory Rate 16 10/10/22 13:45 Blood Pressure 122/74 10/10/22 14:06 Pulse Oximetry 99 10/10/22 16:45 Oxygen Delivery Method 10/10/22 13:45 Medical Decision Making Lab Data Labs: Lab Results 10/10/22 10/10/22 10/10/22 Range/Units 13:35 13:40 13:40 WBC 10.33 (4.50-11.00) K/uL RBC 4.47 (4.30-5.90) m/uL Hgb 13.6 (13.5-17.5) gm/dL Hct 42.0 (37.0-53.0) % MCV 94 (80-100) fL MCH 30 (26-34) pg MCHC 32 (32-36) gm/dL RDW Coeff of Jennifer 12.7 (11.5-15.5) % Plt Count 295 (140-440) K/uL Neut % (Auto) 67.1 (42.0-72.0) % Lymph % (Auto) 16.3 L (20-44) % Ware % (Auto) 11.6 H (0.0-11.0) % Eos % (Auto) 4.3 (0.0-7.0) % Baso % (Auto) 0.2 (0.0-3.0) % Neut # (Auto) 6.94 (1.7-7.0) K/uL Lymph # (Auto) 1.70 (0.90-2.90) K/uL Ware # (Auto) 1.20 H (0.00-0.90) K/UL Eos # (Auto) 0.44 (0.00-0.50) K/uL Baso # (Auto) 0.02 (0.00-0.30) K/uL INR (0.91-1.10) APTT (23-33) Seconds Sodium 137 (135-149) mmol/L Potassium 4.9 (3.6-5.1) mmol/L Chloride 102 (96-114) mmol/L Carbon Dioxide 29 (20-32) mmol/L BUN 11 (7-30) mg/dL Creatinine 0.9 (0.5-1.5) mg/dL Estimated Creat Clear 67.94 Estimated GFR 94 ml/min Glucose 95 (60-115) mg/dL Lactate (0.5-1.9) mmol/L Calcium 9.5 (8.4-10.6) mg/dL Total Bilirubin 0.7 (0.1-1.5) mg/dL AST 24 (12-35) U/L ALT 27 (4-50) U/L Alkaline Phosphatase 79 (40-150) U/L NT-Pro-B Natriuret Pep < 20 pg/mL Total Protein 7.5 (6.0-8.3) g/dL Albumin 4.3 (3.3-5.0) g/dL SARS-CoV-2 (PCR) (Negative) POC Troponin I 0.00 L (0.01-0.04) ng/ml 10/10/22 10/10/22 10/10/22 Range/Units 13:40 13:40 13:40 WBC (4.50-11.00) K/uL RBC (4.30-5.90) m/uL Hgb (13.5-17.5) gm/dL Hct (37.0-53.0) % MCV (80-100) fL MCH (26-34) pg MCHC (32-36) gm/dL RDW Coeff of Jennifer (11.5-15.5) % Plt Count (140-440) K/uL Neut % (Auto) (42.0-72.0) % Lymph % (Auto) (20-44) % Ware % (Auto) (0.0-11.0) % Eos % (Auto) (0.0-7.0) % Baso % (Auto) (0.0-3.0) % Neut # (Auto) (1.7-7.0) K/uL Lymph # (Auto) (0.90-2.90) K/uL Ware # (Auto) (0.00-0.90) K/UL Eos # (Auto) (0.00-0.50) K/uL Baso # (Auto) (0.00-0.30) K/uL INR 1.52 H (0.91-1.10) APTT 41 H (23-33) Seconds Sodium (135-149) mmol/L Potassium (3.6-5.1) mmol/L Chloride (96-114) mmol/L Carbon Dioxide (20-32) mmol/L BUN (7-30) mg/dL Creatinine (0.5-1.5) mg/dL Estimated Creat Clear Estimated GFR ml/min Glucose (60-115) mg/dL Lactate 1.0 (0.5-1.9) mmol/L Calcium (8.4-10.6) mg/dL Total Bilirubin (0.1-1.5) mg/dL AST (12-35) U/L ALT (4-50) U/L Alkaline Phosphatase (40-150) U/L NT-Pro-B Natriuret Pep pg/mL Total Protein (6.0-8.3) g/dL Albumin (3.3-5.0) g/dL SARS-CoV-2 (PCR) Negative SARS-CoV-2 (Negative) POC Troponin I (0.01-0.04) ng/ml 10/10/22 Range/Units 16:35 WBC (4.50-11.00) K/uL RBC (4.30-5.90) m/uL Hgb (13.5-17.5) gm/dL Hct (37.0-53.0) % MCV (80-100) fL MCH (26-34) pg MCHC (32-36) gm/dL RDW Coeff of Jennifer (11.5-15.5) % Plt Count (140-440) K/uL Neut % (Auto) (42.0-72.0) % Lymph % (Auto) (20-44) % Ware % (Auto) (0.0-11.0) % Eos % (Auto) (0.0-7.0) % Baso % (Auto) (0.0-3.0) % Neut # (Auto) (1.7-7.0) K/uL Lymph # (Auto) (0.90-2.90) K/uL Ware # (Auto) (0.00-0.90) K/UL Eos # (Auto) (0.00-0.50) K/uL Baso # (Auto) (0.00-0.30) K/uL INR (0.91-1.10) APTT (23-33) Seconds Sodium (135-149) mmol/L Potassium (3.6-5.1) mmol/L Chloride (96-114) mmol/L Carbon Dioxide (20-32) mmol/L BUN (7-30) mg/dL Creatinine (0.5-1.5) mg/dL Estimated Creat Clear Estimated GFR ml/min Glucose (60-115) mg/dL Lactate (0.5-1.9) mmol/L Calcium (8.4-10.6) mg/dL Total Bilirubin (0.1-1.5) mg/dL AST (12-35) U/L ALT (4-50) U/L Alkaline Phosphatase (40-150) U/L NT-Pro-B Natriuret Pep pg/mL Total Protein (6.0-8.3) g/dL Albumin (3.3-5.0) g/dL SARS-CoV-2 (PCR) (Negative) POC Troponin I 0.00 L (0.01-0.04) ng/ml Imaging Data CT scan - head: Attestation: I have reviewed the pertinent imaging results. Radiologist's impression: Patient: INGRIS LUNDY Facility:?[facility] Patient ID:?[id number] Site Patient ID:?[id number]. Site :?[id number] Study:?CT Head W/O STROKE PROTOCOL-10/10/2022 1:38:45 PM Ordering Physician:Suleiman Starr Final Report: DATE: 10/10/2022. CLINICAL HISTORY: Left-sided deficit. TECHNIQUE: Standard helical CT image acquisition of the brain was performed. COMPARISON: Head CT dated 02/14/2016. FINDINGS: There is no intracranial hemorrhage. No extra-axial collection, mass effect, or midline shift. Jefferson-white matter differentiation is preserved. The ventricles are normal in size and morphology for patient age. 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 The calvarium is unremarkable. The orbits are unremarkable. The paranasal sinuses are unremarkable. The mastoid air cells are unremarkable. The soft tissues are unremarkable. IMPRESSION: 1. No CT evidence of acute intracranial abnormality. 2. 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 Please note that all CT scans at this facility use dose modulation, iterative reconstruction, and/or weight-based dosing when appropriate to reduce radiation dose to as low as reasonably achievable. Dictated by Richardson Long MD @ 10/10/2022 1:48:30 PM (Electronic Signature) CT scan - chest: Attestation: I have reviewed the pertinent imaging results. Radiologist's impression: Patient: INGRISANISHA LUNDY Facility:?[facility] Patient ID:?[id number] Site Patient ID:?[id number]. Site :?[id number] Study:?CT Chest Angio PE protocol [id number]/[id number] 2:29:12 PM Ordering Physician:?Kasandra Starr Final Report: INDICATION: Syncope in the setting of known DVT/pulmonary embolism. COMPARISON: October 08, 2022. TECHNIQUE: CT chest with 95 cc [id number]). FINDINGS: Thyroid, neck complaints, central airways and esophagus are unremarkable. No significant abnormality within the upper abdomen. Normal heart size. No pericardial effusion. Mild coronary artery calcifications. Normal course and caliber of the thoracic aorta and pulmonary arteries. Redemonstrated are multifocal high pulmonary artery filling defects located most centrally in the distal left pulmonary artery (series 6 image 95). There is re- demonstrated right lower lobe pulmonary embolism (series 6 image 137). Multiple additional pulmonary artery filling defects similar to prior. There is no definite new pulmonary embolism. The pulmonary embolism burden appears slightly decreased when compared to prior. Basilar opacities likely represent atelectasis. No pleural effusion or pneumothorax. Thyroid no acute osseous abnormality. IMPRESSION: 1. Redemonstrated multifocal pulmonary embolism with slightly decreased embolism burden. 2. No evidence of new pulmonary emboli. 3. No evidence of new right heart strain or acute intrathoracic abnormality. Please note that all CT scans at this facility use dose modulation, iterative reconstruction, and/or weight-based dosing when appropriate to reduce radiation dose to as low as reasonably achievable. Dictated by Sky Brooks MD @ 10/10/2022 2:55:34 PM (Electronic Signature) ECG Data Attestation: I personally reviewed and interpreted this ECG as follows: (Sinus tachycardia, 107 beats per minute, no ischemic change. QT corrected 475 milliseconds.) Critical Care Time Critical Care Time Critical Care Time: No Discharge Plan Discharge Clinical Impression: Acute dyspnea, DVT of lower limb, acute, Pulmonary embolism Patient Disposition: Home, Self-Care Condition: Stable Instructions: Deep Vein Thrombosis (ED) Additional Instructions: Stay on Eliquis as prescribed. Recommend follow up in clinic to talk to your primary care provider about getting a study for sleep apnea. You cannot get prescribed a CPAP without having had adequate sleep study and qualifying for obstructive sleep apnea. Do recommend trying to sleep on your side or in positions where snoring will be minimized. Obviously, if you have further of these spells, develops any chest pain or any further difficulty breathing, do recommend re-evaluation. Activity Level: Activity as Tolerated Prescriptions: No Action omeprazole 20 mg capsule,delayed release(DR/EC) 20 mg PO DAILY Eliquis 5 mg Tablet 10 mg PO BID Qty: 60 0RF Rx Instructions: 10mg (2 tabs) twice a day for the week, then 1 tab twice a day - do not stop this medication unless directed by a physician prednisone 20 mg tablet doxycycline hyclate 100 mg tablet Follow Up/Referrals: Kole Soriano MD [Primary Care Provider] - Stand Alone Forms: [employer] Info Instructions
--- NOTE | 2022-10-10 13:46 | CRLHL7_ITS ---
For Patients: As a result of the Century Cures Act, medical imaging exams and procedure reports are released immediately into your electronic medical record. You may view this report before your referring provider. If you have questions, please contact your health care provider. INDICATION: Syncope in the setting of known DVT/pulmonary embolism. COMPARISON: October 08, 2022. TECHNIQUE: CT chest with 95 cc Isovue-370). FINDINGS: Thyroid, neck complaints, central airways and esophagus are unremarkable. No significant abnormality within the upper abdomen. Normal heart size. No pericardial effusion. Mild coronary artery calcifications. Normal course and caliber of the thoracic aorta and pulmonary arteries. Redemonstrated are multifocal high pulmonary artery filling defects located most centrally in the distal left pulmonary artery (series 6 image 95). There is re- demonstrated right lower lobe pulmonary embolism (series 6 image 137). Multiple additional pulmonary artery filling defects similar to prior. There is no definite new pulmonary embolism. The pulmonary embolism burden appears slightly decreased when compared to prior. Basilar opacities likely represent atelectasis. No pleural effusion or pneumothorax. Thyroid no acute osseous abnormality. IMPRESSION: 1. Redemonstrated multifocal pulmonary embolism with slightly decreased embolism burden. 2. No evidence of new pulmonary emboli. 3. No evidence of new right heart strain or acute intrathoracic abnormality. Please note that all CT scans at this facility use dose modulation, iterative reconstruction, and/or weight-based dosing when appropriate to reduce radiation dose to as low as reasonably achievable. Dictated by Sky Brooks MD @ 10/10/2022 2:55:34 PM (Electronically Signed)
[2022-10-10 13:54] LABS: Basophils Absolute Auto 0.02 K/uL (0.00-0.30); Basophils Percent Auto 0.2 % (0.0-3.0); Eosinophils Absolute Auto 0.44 K/uL (0.00-0.50); Eosinophils Percent Auto 4.3 % (0.0-7.0); Hemoglobin* 13.6 gm/dL (13.5-17.5); Immature Granulocytes Abs Auto 0.05 K/uL (0.00-0.30); Immature Granulocytes Pct Auto 0.5 %; Lymphocytes Percent Auto 16.3 % (20-44); Mean Corpuscular HGB Conc 32 gm/dL (32-36); Mean Corpuscular Hemoglobin 30 pg (26-34); Mean Corpuscular Volume 94 fL (80-100); Monocytes Percent Auto 11.6 % (0.0-11.0); Neutrophils Absolute Auto 6.94 K/uL (1.7-7.0); Neutrophils Percent Auto 67.1 % (42.0-72.0); Platelet Count* 295 K/uL (140-440); RDW Coefficient of Variation % 12.7 % (11.5-15.5); Red Blood Count 4.47 m/uL (4.30-5.90); White Blood Count* 10.33 K/uL (4.50-11.00)
[2022-10-10 13:56] LABS: Slide Review Reflex No
[2022-10-10 14:15] LABS: Albumin* 4.3 g/dL (3.3-5.0); Chloride* 102 mmol/L (96-114); Potassium* 4.9 mmol/L (3.6-5.1); Sodium* 137 mmol/L (135-149)
[2022-10-10 14:17] LABS: Creatinine* 0.9 mg/dL (0.5-1.5); Est. Creatinine Clearance* 67.94; Estimated Glomerular Filt Rate 94 ml/min
[2022-10-10 14:18] LABS: Alanine Aminotransferase* 27 U/L (4-50); Alkaline Phosphatase* 79 U/L (40-150); Aspartate Amino Transferase* 24 U/L (12-35); Bilirubin Total* 0.7 mg/dL (0.1-1.5); Blood Urea Nitrogen* 11 mg/dL (7-30); Calcium* 9.5 mg/dL (8.4-10.6); Carbon Dioxide* 29 mmol/L (20-32); Glucose* 95 mg/dL (60-115); Total Protein* 7.5 g/dL (6.0-8.3)
[2022-10-10 14:19] LABS: INR 1.52 (0.91-1.10); Partial Thromboplastin Time* 41 Seconds (23-33); Prothrombin Time 19.1 Seconds
[2022-10-10 14:29] LABS: SARS PCR* Negative SARS-CoV-2 (Negative)
[2022-10-10 14:31] LABS: NT Pro B Type NatriureticPept* < 20 pg/mL
--- NOTE | 2022-10-10 16:00 | P.DS_ITS ---
DS: Providers Provider Date Seen: 10/10/22 Primary care physician: Kole Soriano MD Attending Physician on discharge: Rand Jordan MD [place] Hospitalist Date of Discharge: 10/10/22 DS: Diagnosis Discharge Diagnosis (1) Pulmonary embolism: Status: Acute Problem details: - thrombolytics given in ED - 8 p.m. on 10/08/22 - will follow hourly PTTs; when < 70, will start heparin (no bolus) - transition to oral anticoagulants at 24 hours (10/09 8 pm) - reviewed case with ICU physician, Dr. Benjamin, he and I both feel that her transfer to [facility] is unnecessary at this time (2) DVT of lower limb, acute: Status: Acute Problem details: Left leg DVT extending from the proximal femoral vein to the mid peroneal veins. (3) Elevated troponin: Status: Acute Problem details: - likely secondary to demand ischemia from pulmonary emboli - follow troponin, TTE ordered DS: Summary Hospital Course Hospital Course: HOSPITALIST DISCHARGE SUMMARY ATTENDING PHYSICIAN: Rand Jordan MD FINAL DIAGNOSIS: Left leg DVT Pulmonary embolus HOSPITAL FOLLOWUP ISSUES: Hematology for genetic predisposition for DVT recommended Pulmonary for evaluation of lung function 7 day load apixaban, followed by lifetime use REFERRALS WHILE ADMITTED: None REFERRALS AFTER DISCHARGE: Hematology Pulmonary med BRIEF HOSPITAL COURSE: Patient is a 67-year-old with a history of DVT who presented with shortness of breath, mild leg pain. Recently traveled to [place] and hiked at elevation. In the ED he was diagnosed with an acute left lower limb DVT and bilateral extensive PE. He was hemodynamically stable. Did not need oxygen. He did have a small bump in his troponin. He was given thrombolytics and then placed on a heparin drip for 24 hours. Then transition to Eliquis following loading and then maintenance dosing protocols. He was able to ambulate the morning after we stopped heparin and had started Eliquis. He felt mildly short of breath but much improved from admission. He was given appropriate parameters for exercise/exertion and answered his questions about thrombolytics and anticoagulation. I recommended that he follow-up with a executive relations specialist to uncover any genetic predisposition for VTE. I also recommended a pulmonary medicine visit to assess his lung function after such a clot burden was noted. SUBSTANTIVE NOTATIONS ON IMAGING, LAB, MICROBIOLOGY/PATHOLOGY STUDIES: Hemoglobin at discharge was 13.1 Venous blood gas October 10 was unremarkable Initial troponin on 10/08 was 0.06, the next day at 10/09 it was back to normal 0.03 DVT study Left leg DVT extending from the proximal femoral vein to the mid peroneal veins. CTA Multifocal pulmonary emboli involving the distal left main pulmonary artery extending into the left upper and lower lobar/segmental/subsegmental branches and in the right upper lobar and right middle/lower segmental/subsegmental pulmonary arteries. Mild flattening of the interventricular septum which could suggest right heart strain DISCHARGE MEDICATIONS: See Reconciled list - SIGNIFICANT CHANGES: Adding Eliquis at 10 mg b.i.d. for 7 days, then 5 mg b.i.d. for life REVIEW OF SYSTEMS No new chest pain or dyspnea Pain controlled No voiding difficulties Tolerating diet challenge PHYSICAL EXAM: CONSTITUTIONAL: Awake, alert, insightful. No acute distress. VITAL SIGNS: see record. HEENT: Normocephalic, atraumatic. PERRL, EOMI, conjunctivae pink, no scleral icterus. Ears and nose externally normal. Pharynx normal. NECK: No JVD. No carotid bruit, no thyromegaly, no adenopathy. CHEST: Clear to auscultation bilaterally. HEART: S1 and S2 normal. Edema ABDOMEN: Soft, nontender. Normal bowel sounds. MUSCULOSKELETAL: No gross joint deformity or swelling. NEURO: Cranial nerves intact. Grossly intact. No asymmetric findings. SKIN: No rashes, petechiae, concerning changes PSYCHIATRIC: Mood euthymic. DISPOSITION: Home with his Time spent on discharge 37 minutes. . Status at Discharge Functional status at discharge: independent ambulation Overall status at discharge: patient is progressing back to baseline Time Spent with Patient Time attestation: Total time spent providing and/or coordinating discharge services: Time spent: Greater than 30 minutes Exam Const: Vital Signs, click to edit/add: Vital Signs - 24 hr 10/10/22 13:45 10/10/22 13:35 10/10/22 13:35 Temperature 99.8 F H Pulse Rate 99 Pulse Rate [Left P ulse Oximeter] 104 H Respiratory Rate 16 Blood Pressure 121/83 Blood Pressure [Le ft Upper Arm] 127/82 Pulse Oximetry 99 99 95 Oxygen Delivery Me thod Room Air 10/10/22 13:38 10/10/22 13:40 10/10/22 13:41 Temperature Pulse Rate 103 H 107 H 102 H Pulse Rate [Left P ulse Oximeter] Respiratory Rate Blood Pressure 120/77 127/82 Blood Pressure [Le ft Upper Arm] Pulse Oximetry 97 99 98 Oxygen Delivery Me thod 10/10/22 13:45 10/10/22 13:46 10/10/22 13:50 Temperature Pulse Rate 104 H 105 H 103 H Pulse Rate [Left P ulse Oximeter] Respiratory Rate Blood Pressure 127/77 Blood Pressure [Le ft Upper Arm] Pulse Oximetry 98 98 99 Oxygen Delivery Me thod 10/10/22 13:51 10/10/22 13:55 10/10/22 13:56 Temperature Pulse Rate 103 H 103 H 103 H Pulse Rate [Left P ulse Oximeter] Respiratory Rate Blood Pressure 119/75 120/75 Blood Pressure [Le ft Upper Arm] Pulse Oximetry 99 99 99 Oxygen Delivery Me thod 10/10/22 14:00 10/10/22 14:01 10/10/22 14:05 Temperature Pulse Rate 100 103 H 102 H Pulse Rate [Left P ulse Oximeter] Respiratory Rate Blood Pressure 123/76 Blood Pressure [Le ft Upper Arm] Pulse Oximetry 99 98 98 Oxygen Delivery Me thod 10/10/22 14:06 10/10/22 14:07 10/10/22 14:10 Temperature Pulse Rate 100 99 99 Pulse Rate [Left P ulse Oximeter] Respiratory Rate Blood Pressure 122/74 Blood Pressure [Le ft Upper Arm] Pulse Oximetry 99 98 99 Oxygen Delivery Me thod 10/10/22 14:31 10/10/22 14:35 10/10/22 14:40 Temperature Pulse Rate 101 H 102 H 100 Pulse Rate [Left P ulse Oximeter] Respiratory Rate Blood Pressure Blood Pressure [Le ft Upper Arm] Pulse Oximetry 98 98 98 Oxygen Delivery Me thod 10/10/22 14:45 10/10/22 14:50 10/10/22 14:55 Temperature Pulse Rate 101 H 98 108 H Pulse Rate [Left P ulse Oximeter] Respiratory Rate Blood Pressure Blood Pressure [Le ft Upper Arm] Pulse Oximetry 98 98 99 Oxygen Delivery Me thod 10/10/22 15:00 10/10/22 15:05 10/10/22 15:10 Temperature Pulse Rate 99 100 101 H Pulse Rate [Left P ulse Oximeter] Respiratory Rate Blood Pressure Blood Pressure [Le ft Upper Arm] Pulse Oximetry 97 97 97 Oxygen Delivery Me thod DS: Data Data Completed and Pending Labs on day of discharge: Labs from last 24 hours 10/10/22 10/10/22 10/10/22 13:40 13:40 13:40 WBC RBC Hgb Hct MCV MCH MCHC RDW Coeff of Jennifer Plt Count Neut % (Auto) Lymph % (Auto) [place] % (Auto) Eos % (Auto) Baso % (Auto) Neut # (Auto) Lymph # (Auto) [place] # (Auto) Eos # (Auto) Baso # (Auto) INR 1.52 H APTT 41 H Sodium Potassium Chloride Carbon Dioxide BUN Creatinine Estimated Creat Clear Estimated GFR Glucose Lactate 1.0 Calcium Total Bilirubin AST ALT Alkaline Phosphatase NT-Pro-B Natriuret Pep Total Protein Albumin SARS-CoV-2 (PCR) Negative SARS-CoV-2 POC Troponin I 10/10/22 10/10/22 10/10/22 13:40 13:40 13:35 WBC 10.33 RBC 4.47 Hgb 13.6 Hct 42.0 MCV 94 MCH 30 MCHC 32 RDW Coeff of Jennifer 12.7 Plt Count 295 Neut % (Auto) 67.1 Lymph % (Auto) 16.3 L [place] % (Auto) 11.6 H Eos % (Auto) 4.3 Baso % (Auto) 0.2 Neut # (Auto) 6.94 Lymph # (Auto) 1.70 [place] # (Auto) 1.20 H Eos # (Auto) 0.44 Baso # (Auto) 0.02 INR APTT Sodium 137 Potassium 4.9 Chloride 102 Carbon Dioxide 29 BUN 11 Creatinine 0.9 Estimated Creat Clear 67.94 Estimated GFR 94 Glucose 95 Lactate Calcium 9.5 Total Bilirubin 0.7 AST 24 ALT 27 Alkaline Phosphatase 79 NT-Pro-B Natriuret Pep < 20 Total Protein 7.5 Albumin 4.3 SARS-CoV-2 (PCR) POC Troponin I 0.00 L Discharge Plan Discharge Clinical Impression: Acute dyspnea, DVT of lower limb, acute, Pulmonary embolism Patient Disposition: Home, Self-Care Condition: Stable Instructions: Deep Vein Thrombosis (ED) Additional Instructions: Stay on Eliquis as prescribed. Recommend follow up in clinic to talk to your primary care provider about getting a study for sleep apnea. You cannot get prescribed a CPAP without having had adequate sleep study and qualifying for obstructive sleep apnea. Do recommend trying to sleep on your side or in positions where snoring will be minimized. Obviously, if you have further of these spells, develops any chest pain or any further difficulty breathing, do recommend re-evaluation. Activity Level: Activity as Tolerated Prescriptions: No Action omeprazole 20 mg capsule,delayed release(DR/EC) 20 mg PO DAILY Eliquis 5 mg Tablet 10 mg PO BID Qty: 60 0RF Rx Instructions: 10mg (2 tabs) twice a day for the week, then 1 tab twice a day - do not stop this medication unless directed by a physician prednisone 20 mg tablet doxycycline hyclate 100 mg tablet Follow Up/Referrals: Kole Soriano MD [Primary Care Provider] - Stand Alone Forms: [employer] Info Instructions
== END 2022-10-10 17:20 | disposition home or self-care (01) ==
PROVIDERS: Emergency Provider Family Medicine; PCP Family Medicine
DX: I26.99 Other pulmonary embolism without acute cor pulmonale (principal); I82.409 Acute embolism and thrombosis of unspecified deep veins of unspecified lower extremity; R77.8 Other specified abnormalities of plasma proteins
CPT/HCPCS: 36415; 70450; 71260; 80053; 83605; 83880; 84484; 85025; 85610; 85730; 87635; 93005; 94761; 99285; Q9967

== ENCOUNTER 2022-10-30 10:26 | Observation (INO) | payer OTHER, SELFPAY ==
[2022-10-30] VITALS (10 sets, daily range): BP systolic 114–145; BP diastolic 74–84; PULSE 78–95; RESP 16–18; TEMP 36.3–36.8; O2SAT 98–100; BMI 24.3
--- NOTE | 2022-10-30 11:00 | CRLHL7_ITS ---
For Patients: As a result of the Century Cures Act, medical imaging exams and procedure reports are released immediately into your electronic medical record. You may view this report before your referring provider. If you have questions, please contact your health care provider. Indication: Palpitations and nausea post PE Comparison: None available. Technique: PA and lateral views of the chest Findings: There is mild interstitial prominence and hyperinflation without dense consolidation, effusion or pneumothorax. The cardiomediastinal silhouette is within normal limits. The bony thorax is grossly intact. Impression: Mild interstitial prominence and hyperinflation without dense consolidation. Dictated by Elias Nelson MD @ 10/30/2022 11:42:21 AM (Electronically Signed)
--- NOTE | 2022-10-30 11:07 | ED.GENADULT ---
HPI - General Adult General Chief complaint: Nausea/Vomiting Stated complaint: BP elevated, oxygen level low Time Seen by Provider: 10/30/22 10:31 Source: patient Mode of arrival: ambulatory Limitations: no limitations History of Present Illness HPI narrative: 67-year-old male with a notable prior history of recent saddle PE presents to the emergency department with postprandial dizziness, palpitations and reduced oxygenation. Patient had thrombolytics and was appropriately transitioned from heparin onto Eliquis 3 weeks ago after saddle pulmonary embolism was diagnosed in the ED. He does have a prior history of DVT 2 years ago as well. Patient reports good compliance with his anticoagulants. He states that his symptoms had been progressing normally until last night. He had been able to do light exercise and perform his ADLs with no shortness of breath, dizziness or symptoms. Last night after dinner, he felt lightheaded and nauseated, lasting about 20 minutes. Today he went out for breakfast and felt sweaty. Heart rate increased to 130-135 and his oxygen levels were 93% it is Apple watch confirmed that he was in sinus rhythm. It is more episode just prior to coming to the emergency department where his heart rate was only about 110 at rest but he felt dizzy and symptomatic. He has not noted fever, no illness exposures. He notes no increased swelling in his legs. I do review the ED notes from 3 weeks ago and also see the echo from the which showed some very mild right heart dysfunction. He has no history of coronary artery disease, arrhythmias, AFib. There has been no syncope. No history of GI or gallbladder disease. Did not try any interventions at home prior to coming to the ED. Past medical history most notable for the recent PE. Medications are accurate per EMR report. Good compliance with apixaban. No known drug allergies. No recent pertinent travel. No recent surgeries. ROS is notable for the GI, respiratory a, cardiac and generalized symptoms as above, otherwise denies times 12 systems. Related Data Home Medications Medication Instructions Recorded Confirmed omeprazole 20 mg capsule,delayed 20 mg PO DAILY 10/08/22 10/30/22 release apixaban 5 mg tablet (Eliquis) 5 mg PO BID 10/30/22 10/30/22 Allergies Allergy/AdvReac Type Severity Reaction Status Date / Time No Known Drug Allergies Allergy Verified 10/08/22 15:41 [facility] Medical History DVT (deep venous thrombosis) Surgical History H/O: hemorrhoidectomy History of colonoscopy Social History Narrative: Lives with in [place]. 2 adult children. 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 PCP: Bo Smoking Status: Never smoker Do you use any of these nicotine containing products: None How often do you have a drink containing alcohol: 4 or more times a week Alcohol type: wine How many standard drinks containing alcohol do you have on a typical day: 1 or 2 AUDIT-C Alcohol total score: 4 Non-prescribed substance use: denies use Caffeine: Yes (coffee) service: No Exam Const: Vital Signs, click to edit/add: Vital Signs - 24 hr 10/30/22 10:33 Temperature 97.3 F L Pulse Rate [Right Pulse Oximeter] 90 Respiratory Rate 18 Blood Pressure [Ri ght Upper Arm] 145/84 H Pulse Oximetry 98 Oxygen Delivery Me thod Room Air Documenting provider has reviewed patient's vital signs: yes Common normals: no apparent distress General appearance: cooperative and well kempt Other: Great historian. HENMT: Common normals: normocephalic and head/scalp atraumatic Head and scalp: normocephalic and atraumatic Mouth: oral and palatal mucosa normal Throat: posterior oropharynx normal Eye: Common normals: PERRL and conjunctivae normal Conjunctiva: conjunctiva(e) normal Pupil: PERRL Neck & C-Spine: Common normals: no lymphadenopathy Chest: Common normals: inspection of chest normal and palpation of chest normal Resp: Common normals: normal respiratory effort, no use of accessory muscles and clear to auscultation bilaterally Effort & inspection: able to speak in complete sentences Auscultation: clear to auscultation bilaterally Cardio: Common normals: regular rate, regular rhythm, S1 normal heart sound, S2 normal heart sound, no murmurs and peripheral pulses 2+ throughout Rate: regular rate Rhythm: regular rhythm Heart sounds: S1 normal and S2 normal Peripheral pulses: pulses 2+ throughout GI: Common normals: Normal to inspection, nondistended, normoactive bowel sounds present, soft to palpation, non-tender and no hepatosplenomegaly Palpation: soft and no hepatosplenomegaly Extremity: Other: No pitting edema. Palpable fullness, suspected DVT in left lateral calf area. Neuro: Motor exam: no tremor noted and no movement abnormalities noted Psych: Appearance: grossly normal and well kempt Attitude: calm and engaged Insight: insight good Judgement: judgment good Skin: Common normals: no rashes or lesions noted General skin exam: no rashes or lesions noted Course Vital Signs Vital signs: Initial Vital Signs Temperature 97.3 F L 10/30/22 10:33 Temperature Source Temporal Artery Scan 10/30/22 10:33 Pulse Rate 90 10/30/22 10:33 Respiratory Rate 18 10/30/22 10:33 Blood Pressure 145/84 H 10/30/22 10:33 Blood Pressure Mean 104 10/30/22 10:33 Blood Pressure Position Sitting 10/30/22 10:33 Pulse Oximetry 98 10/30/22 10:33 Oxygen Delivery Method 10/30/22 10:33 Vital Signs Temperature 97.3 F L 10/30/22 10:33 Pulse Rate 90 10/30/22 10:33 Respiratory Rate 18 10/30/22 10:33 Blood Pressure 145/84 H 10/30/22 10:33 Pulse Oximetry 98 10/30/22 10:33 Oxygen Delivery Method 10/30/22 10:33 Temperature 97.3 F L 10/30/22 10:33 Pulse Rate 90 10/30/22 10:33 Respiratory Rate 18 10/30/22 10:33 Blood Pressure 145/84 H 10/30/22 10:33 Pulse Oximetry 98 10/30/22 10:33 Oxygen Delivery Method 10/30/22 10:33 Medical Decision Making MDM Narrative Medical decision making narrative: Flight differential diagnosis, including most worrisome for right ventricular strain in the setting of recent PE, heart failure, arrhythmia, GI or gallbladder disease versus infection. Labs, chest x-ray, EKG ordered. property assessment monitor. Awaiting findings. No treatments in the interim. Update: Labs are overall reassuring. I do have significant concerns that he is showing signs of worsening right ventricular strain or arrhythmia. I did discuss with the hospitalist team, we would like a repeat echo. They are agreeable to overnight observation and further workup. Patient agreeable as well. Medical Records Medical records reviewed: Yes I reviewed the patient's medical records Medical records narrative: Recent hospitalization Lab Data Lab results reviewed: Yes I reviewed the patient's lab results Labs: Lab Results 10/30/22 10/30/22 10/30/22 Range/Units 11:36 11:40 11:45 WBC 5.51 (4.50-11.00) K/uL RBC 4.56 (4.30-5.90) m/uL Hgb 13.7 (13.5-17.5) gm/dL Hct 42.9 (37.0-53.0) % MCV 94 (80-100) fL MCH 30 (26-34) pg MCHC 32 (32-36) gm/dL RDW Coeff of Jennifer 12.9 (11.5-15.5) % Plt Count 334 (140-440) K/uL Neut % (Auto) 55.9 (42.0-72.0) % Lymph % (Auto) 28.1 (20-44) % [place] % (Auto) 10.3 (0.0-11.0) % Eos % (Auto) 4.9 (0.0-7.0) % Baso % (Auto) 0.4 (0.0-3.0) % Neut # (Auto) 3.08 (1.7-7.0) K/uL Lymph # (Auto) 1.55 (0.90-2.90) K/uL [place] # (Auto) 0.60 (0.00-0.90) K/UL Eos # (Auto) 0.27 (0.00-0.50) K/uL Baso # (Auto) 0.02 (0.00-0.30) K/uL D-Dimer Quant (PE/DVT) (0.00-0.50) ug/ml Sodium (135-149) mmol/L Potassium (3.6-5.1) mmol/L Chloride (96-114) mmol/L Carbon Dioxide (20-32) mmol/L BUN (7-30) mg/dL Creatinine (0.5-1.5) mg/dL Estimated Creat Clear Estimated GFR ml/min Glucose (60-115) mg/dL Lactate (0.5-1.9) mmol/L Calcium (8.4-10.6) mg/dL Total Bilirubin (0.1-1.5) mg/dL AST (12-35) U/L ALT (4-50) U/L Alkaline Phosphatase (40-150) U/L Troponin I (0.01-0.04) ng/mL NT-Pro-B Natriuret Pep pg/mL Total Protein (6.0-8.3) g/dL Albumin (3.3-5.0) g/dL Lipase (23-300) U/L Procalcitonin (<0.50) ng/mL Urine Color Yellow (Yellow) Urine Appearance Clear (Clear) Urine pH 7.0 (5.0-8.5) Ur Specific [place] 1.015 (1.000-1.030) Urine Protein Negative (Negative) Urine Glucose (UA) Negative (Negative) Urine Ketones Negative (Negative) Urine Blood Negative (Negative) Urine Nitrite Negative (Negative) Urine Bilirubin Negative (Negative) Urine Urobilinogen 0.2 (0.2-1.0) Ur Leukocyte Esterase Negative (Negative) SARS-CoV-2 (PCR) Negative SARS-CoV-2 (Negative) Influenza Type A (PCR) Negative PCR FLU A (Negative) Influenza Type B (PCR) Negative PCR FLU B (Negative) RSV (PCR) Negative PCR RSV (Negative) 10/30/22 10/30/22 10/30/22 Range/Units 11:45 11:45 11:45 WBC (4.50-11.00) K/uL RBC (4.30-5.90) m/uL Hgb (13.5-17.5) gm/dL Hct (37.0-53.0) % MCV (80-100) fL MCH (26-34) pg MCHC (32-36) gm/dL RDW Coeff of Jennifer (11.5-15.5) % Plt Count (140-440) K/uL Neut % (Auto) (42.0-72.0) % Lymph % (Auto) (20-44) % [place] % (Auto) (0.0-11.0) % Eos % (Auto) (0.0-7.0) % Baso % (Auto) (0.0-3.0) % Neut # (Auto) (1.7-7.0) K/uL Lymph # (Auto) (0.90-2.90) K/uL [place] # (Auto) (0.00-0.90) K/UL Eos # (Auto) (0.00-0.50) K/uL Baso # (Auto) (0.00-0.30) K/uL D-Dimer Quant (PE/DVT) 0.53 H (0.00-0.50) ug/ml Sodium 138 (135-149) mmol/L Potassium 3.9 (3.6-5.1) mmol/L Chloride 105 (96-114) mmol/L Carbon Dioxide 28 (20-32) mmol/L BUN 14 (7-30) mg/dL Creatinine 1.0 (0.5-1.5) mg/dL Estimated Creat Clear 67.94 Estimated GFR 83 ml/min Glucose 104 (60-115) mg/dL Lactate 1.1 (0.5-1.9) mmol/L Calcium 9.4 (8.4-10.6) mg/dL Total Bilirubin 0.4 (0.1-1.5) mg/dL AST 26 (12-35) U/L ALT 25 (4-50) U/L Alkaline Phosphatase 60 (40-150) U/L Troponin I (0.01-0.04) ng/mL NT-Pro-B Natriuret Pep pg/mL Total Protein 7.3 (6.0-8.3) g/dL Albumin 4.2 (3.3-5.0) g/dL Lipase 182 (23-300) U/L Procalcitonin 0.04 (<0.50) ng/mL Urine Color (Yellow) Urine Appearance (Clear) Urine pH (5.0-8.5) Ur Specific [place] (1.000-1.030) Urine Protein (Negative) Urine Glucose (UA) (Negative) Urine Ketones (Negative) Urine Blood (Negative) Urine Nitrite (Negative) Urine Bilirubin (Negative) Urine Urobilinogen (0.2-1.0) Ur Leukocyte Esterase (Negative) SARS-CoV-2 (PCR) (Negative) Influenza Type A (PCR) (Negative) Influenza Type B (PCR) (Negative) RSV (PCR) (Negative) 10/30/22 Range/Units 11:45 WBC (4.50-11.00) K/uL RBC (4.30-5.90) m/uL Hgb (13.5-17.5) gm/dL Hct (37.0-53.0) % MCV (80-100) fL MCH (26-34) pg MCHC (32-36) gm/dL RDW Coeff of Jennifer (11.5-15.5) % Plt Count (140-440) K/uL Neut % (Auto) (42.0-72.0) % Lymph % (Auto) (20-44) % [place] % (Auto) (0.0-11.0) % Eos % (Auto) (0.0-7.0) % Baso % (Auto) (0.0-3.0) % Neut # (Auto) (1.7-7.0) K/uL Lymph # (Auto) (0.90-2.90) K/uL [place] # (Auto) (0.00-0.90) K/UL Eos # (Auto) (0.00-0.50) K/uL Baso # (Auto) (0.00-0.30) K/uL D-Dimer Quant (PE/DVT) (0.00-0.50) ug/ml Sodium (135-149) mmol/L Potassium (3.6-5.1) mmol/L Chloride (96-114) mmol/L Carbon Dioxide (20-32) mmol/L BUN (7-30) mg/dL Creatinine (0.5-1.5) mg/dL Estimated Creat Clear Estimated GFR ml/min Glucose (60-115) mg/dL Lactate (0.5-1.9) mmol/L Calcium (8.4-10.6) mg/dL Total Bilirubin (0.1-1.5) mg/dL AST (12-35) U/L ALT (4-50) U/L Alkaline Phosphatase (40-150) U/L Troponin I < 0.01 L (0.01-0.04) ng/mL NT-Pro-B Natriuret Pep < 20 pg/mL Total Protein (6.0-8.3) g/dL Albumin (3.3-5.0) g/dL Lipase (23-300) U/L Procalcitonin (<0.50) ng/mL Urine Color (Yellow) Urine Appearance (Clear) Urine pH (5.0-8.5) Ur Specific [place] (1.000-1.030) Urine Protein (Negative) Urine Glucose (UA) (Negative) Urine Ketones (Negative) Urine Blood (Negative) Urine Nitrite (Negative) Urine Bilirubin (Negative) Urine Urobilinogen (0.2-1.0) Ur Leukocyte Esterase (Negative) SARS-CoV-2 (PCR) (Negative) Influenza Type A (PCR) (Negative) Influenza Type B (PCR) (Negative) RSV (PCR) (Negative) ECG Data Attestation: I personally reviewed and interpreted this ECG as follows: Prior ECG tracings: available for review Interpretation: Normal sinus rhythm with no significant signs of ischemia. No ST or T-wave abnormalities. Normal axis.
[2022-10-30 11:51] LABS: Appearance Urine Clear (Clear); Bilirubin Urine Negative (Negative); Blood Urine Negative (Negative); Color Urine Yellow (Yellow); Glucose Urine Negative (Negative); Ketones Urine Negative (Negative); Leukocyte Esterase Urine Negative (Negative); Nitrite Urine Negative (Negative); Protein Urine Negative (Negative); Specific Gravity Urine 1.015 (1.000-1.030); Urobilinogen Urine 0.2 (0.2-1.0)
[2022-10-30 12:00] LABS: Lactate* 1.1 mmol/L (0.5-1.9)
[2022-10-30 12:06] LABS: Basophils Absolute Auto 0.02 K/uL (0.00-0.30); Basophils Percent Auto 0.4 % (0.0-3.0); Eosinophils Absolute Auto 0.27 K/uL (0.00-0.50); Eosinophils Percent Auto 4.9 % (0.0-7.0); Hematocrit 42.9 % (37.0-53.0); Hemoglobin* 13.7 gm/dL (13.5-17.5); Immature Granulocytes Abs Auto 0.02 K/uL (0.00-0.30); Immature Granulocytes Pct Auto 0.4 %; Lymphocytes Absolute Auto 1.55 K/uL (0.90-2.90); Lymphocytes Percent Auto 28.1 % (20-44); Mean Corpuscular HGB Conc 32 gm/dL (32-36); Mean Corpuscular Hemoglobin 30 pg (26-34); Mean Corpuscular Volume 94 fL (80-100); Monocytes Percent Auto 10.3 % (0.0-11.0); Neutrophils Absolute Auto 3.08 K/uL (1.7-7.0); Neutrophils Percent Auto 55.9 % (42.0-72.0); Platelet Count* 334 K/uL (140-440); RDW Coefficient of Variation % 12.9 % (11.5-15.5); Red Blood Count 4.56 m/uL (4.30-5.90); White Blood Count* 5.51 K/uL (4.50-11.00)
[2022-10-30 12:24] LABS: Albumin* 4.2 g/dL (3.3-5.0); Chloride* 105 mmol/L (96-114); Sodium* 138 mmol/L (135-149)
[2022-10-30 12:25] LABS: D Dimer Quantitative* 0.53 ug/ml (0.00-0.50); Potassium* 3.9 mmol/L (3.6-5.1)
[2022-10-30 12:26] LABS: Slide Review Reflex No
[2022-10-30 12:27] LABS: Alanine Aminotransferase* 25 U/L (4-50); Alkaline Phosphatase* 60 U/L (40-150); Aspartate Amino Transferase* 26 U/L (12-35); Bilirubin Total* 0.4 mg/dL (0.1-1.5); Blood Urea Nitrogen* 14 mg/dL (7-30); Carbon Dioxide* 28 mmol/L (20-32); Est. Creatinine Clearance* 67.94; Estimated Glomerular Filt Rate 83 ml/min; Glucose* 104 mg/dL (60-115); Lipase* 182 U/L (23-300); Total Protein* 7.3 g/dL (6.0-8.3)
[2022-10-30 12:28] LABS: Calcium* 9.4 mg/dL (8.4-10.6)
[2022-10-30 12:32] LABS: PCR FLU A Negative PCR FLU A (Negative); PCR FLU B Negative PCR FLU B (Negative); PCR RSV Negative PCR RSV (Negative)
[2022-10-30 12:36] LABS: SARS PCR* Negative SARS-CoV-2 (Negative)
[2022-10-30 12:40] LABS: NT Pro B Type NatriureticPept* < 20 pg/mL; Troponin I* < 0.01 ng/mL (0.01-0.04)
[2022-10-30 12:44] LABS: Procalcitonin* 0.04 ng/mL (<0.50)
--- NOTE | 2022-10-30 13:40 | P.IMHP_ITS ---
Hospitalist- H&P: HPI History of Present Illness Date Seen: 10/30/22 Chief complaint: BP elevated, oxygen level low Narrative: Jacob Armstrong is a 67 year old male with past medical history of PE and DVT currently on eliquis presenting for evaluation of tachycardia. The patient has had several episodes of intermittent tachycardia at rest and with activity. Associated symptoms include nausea, dizziness, diaphoresis. He denies chest pain and SOB. He has intermittent lower extremity calf pain. Today he was walking at [place] he became dizzy. Later at home he became dizzy and nauseated. His apple watch noted HR of 135. He presented to ED. CXR showed mild interstitial prominence and hyperinflation without dense consolidation. He denies palpitations. Troponin, procal WNL. CBC and BMP unremarkable. EKG NSR. Endorses 2 cups caffeine per day. cxr Mild interstitial prominence and hyperinflation without dense consolidation. Review of Systems Status of ROS: Reports: 10 or more systems reviewed and unremarkable except as noted in History and below [facility] Medical History DVT (deep venous thrombosis) Surgical History H/O: hemorrhoidectomy History of colonoscopy Social History Narrative: Lives with in [place]. 2 adult children. 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 PCP: Bo Highest level of school completed/degree received: Doctoral degree Smoking Status: Never smoker Do you use any of these nicotine containing products: None How often do you have a drink containing alcohol: 4 or more times a week Alcohol type: wine How many standard drinks containing alcohol do you have on a typical day: 1 or 2 AUDIT-C Alcohol total score: 4 Non-prescribed substance use: denies use Caffeine: Yes (coffee) service: No Meds Home Medications and Allergies Home Medications Medication Instructions Recorded Confirmed Type omeprazole 20 mg capsule,delayed 20 mg PO DAILY 10/08/22 10/30/22 History release apixaban 5 mg tablet (Eliquis) 5 mg PO BID 01/20/23 01/20/23 History Allergies Allergy/AdvReac Type Severity Reaction Status Date / Time No Known Drug Allergies Allergy Verified 10/08/22 15:41 Exam Narrative: Exam Narrative: Gen: no acute distress HEENT: NCAT EOMI mmm Neck: Supple CV: Tachycardic normal s1 s2 Lungs: CTAB Abd: Soft,nt, nd Neuro: Alert, oriented, CN grossly intact; nonfocal screening?exam Psych: appropriate affect MSK: age appropriate muscle mass Skin; Warm, dry no rash on face Const: Vital Signs, click to edit/add: Vital Signs - 24 hr 10/30/22 10:33 Temperature 97.3 F L Pulse Rate [Right Pulse Oximeter] 90 Respiratory Rate 18 Blood Pressure [Ri ght Upper Arm] 145/84 H Pulse Oximetry 98 Oxygen Delivery Me thod Room Air Hospitalist - H&P: Result Labs Labs: Short CBC 10/30/22 Range/Units 11:45 WBC 5.51 (4.50-11.00) K/uL Hgb 13.7 (13.5-17.5) gm/dL Hct 42.9 (37.0-53.0) % Plt Count 334 (140-440) K/uL BMP 10/30/22 11:45 Sodium 138 Potassium 3.9 Chloride 105 Carbon Dioxide 28 BUN 14 Creatinine 1.0 Glucose 104 Calcium 9.4 Cardiac Enzymes 10/30/22 Range/Units 11:45 Troponin I < 0.01 L (0.01-0.04) ng/mL Liver Function 10/30/22 Range/Units 11:45 Total Bilirubin 0.4 (0.1-1.5) mg/dL AST 26 (12-35) U/L ALT 25 (4-50) U/L Alkaline Phosphatase 60 (40-150) U/L Albumin 4.2 (3.3-5.0) g/dL Urine 10/30/22 Range/Units 11:40 Urine Color Yellow (Yellow) Urine Appearance Clear (Clear) Urine pH 7.0 (5.0-8.5) Ur Specific [place] 1.015 (1.000-1.030) Urine Protein Negative (Negative) Urine Glucose (UA) Negative (Negative) Assessment and Plan Assessment and plan (1) Pulmonary embolism: Problem comment: - thrombolytics given in ED - 8 p.m. on 10/08/22 - will follow hourly PTTs; when < 70, will start heparin (no bolus) - transition to oral anticoagulants at 24 hours (10/09 8 pm) - reviewed case with ICU physician, Dr. Benjamin, he and I both feel that her transfer to [facility] is unnecessary at this time Status: Acute (2) DVT of lower limb, acute: Problem comment: Left leg DVT extending from the proximal femoral vein to the mid peroneal veins. Status: Acute (3) Tachycardia: Status: Acute Plan Assessment: Jacob Armstrong is a 67 year old male with past medical history of PE and DVT currently on eliquis presenting for evaluation of tachycardia, nausea, dizziness, diaphoresis. His apple watch noted HR of 135. He presented to ED. CXR showed mild interstitial prominence and hyperinflation without dense consolidation. He denies palpitations. Troponin, procal WNL. CBC and BMP unremarkable. EKG NSR. Endorses 2 cups caffeine per day. 1. Intermittent Tachycardia 2. Hx of PE 3. Hx of DVT Plan -admit to obs -tele -echo -CT PE/Venous Doppler US LE -May need outpatient Cardiology referral with holter monitor if workup negative -continue eliquis
--- NOTE | 2022-10-30 13:52 | W.PC.EDHO ---
Primary Language: Preferred Language: Orientation Status: [] Alert & Oriented [] Slight Confusion [] Known Dx Dementia Transfers By: [] Assist of 1 [] Assist of 2 [] Lift Description of Symptoms ED Triage Present Problem history of PE last week. today onset of nausea Description and palpitations Oxygen Administration Pulse Oximetry 98 Oxygen Delivery Method Room Air Cardiac Monitoring EKG Method 12 Lead
--- NOTE | 2022-10-30 15:11 | CRLHL7_ITS ---
For Patients: As a result of the Century Cures Act, medical imaging exams and procedure reports are released immediately into your electronic medical record. You may view this report before your referring provider. If you have questions, please contact your health care provider. INDICATION: Tachycardia. History of pulmonary embolus October 10, 2022. COMPARISON: October 10, 2022 TECHNIQUE: : CT examination of the chest was performed with the uneventful intravenous administration of 95 cc of Isovue 370 while thin axial sections were obtained from above the apices of the lungs to the lung bases. Please note that all CT scans at this facility use dose modulation, iterative reconstruction, and/or weight-based dosing when appropriate to reduce radiation dose to as low as reasonably achievable. FINDINGS: : HEART and MEDIASTINUM: The heart size is normal. There is no mediastinal or hilar adenopathy or mass. There is no pericardial effusion. PULMONARY ARTERIAL CIRCULATION: There is no visible intraluminal filling defect to suggest pulmonary embolus. The pulmonary embolus noted October 10, 2022 has lysed and there are no new clots identified. LUNGS: Linear opacities at the lung bases likely atelectasis or scarring associated with the prior pulmonary emboli. PLEURAL SPACES: There is no pleural effusion, pneumothorax or pleural based mass. VISUALIZED UPPER ABDOMEN: The limited visualized upper abdominal structures appear normal. OSSEOUS STRUCTURES: Age-appropriate appearance. No acute fracture or destructive process. TUBES and LINES: None. IMPRESSION: 1. There is no finding of acute pulmonary embolus. The pulmonary emboli noted October 10, 2022 have lysed and there are no new emboli identified 2. Linear opacities at the lung bases likely atelectasis or scarring associated with prior/recent pulmonary emboli. Otherwise, the lungs and pleural space appear normal. Please note that all CT scans at this facility use dose modulation, iterative reconstruction, and/or weight-based dosing when appropriate to reduce radiation dose to as low as reasonably achievable. Dictated by Dony Lutz MD @ 10/30/2022 5:13:18 PM (Electronically Signed)
--- NOTE | 2022-10-30 15:12 | CRLHL7_ITS ---
For Patients: As a result of the Century Cures Act, medical imaging exams and procedure reports are released immediately into your electronic medical record. You may view this report before your referring provider. If you have questions, please contact your health care provider. INDICATION: Leg pain and swelling. TECHNIQUE: Ultrasound venous duplex bilateral lower extremity. Compression venous exam was performed using morales-scale, color Doppler, and spectral Doppler analysis. COMPARISON: October 08, 2022. FINDINGS: Deep veins: There is heterogeneous hyperechoic material within the lumen of the left proximal femoral vein to the left distal popliteal vein with lack of compressibility and lack of color Doppler flow consistent with thrombus. There is improved within the left peroneal vein and decreased heterogeneous material within the lumen consistent with improved thrombus. No thrombus is identified within the right lower extremity.. No popliteal cyst. IMPRESSION: DVT in the left lower extremity from the proximal femoral vein through the distal popliteal vein. This previously extended into the left peroneal vein which appears more patent on the current examination when compared to the prior. Findings discussed with Dr. Solorio at 5:07 p.m. on 10/30/2022. Dictated by Coleen Sharma MD @ 10/30/2022 5:07:54 PM (Electronically Signed)
[2022-10-30] MEDS: ONDANSETRON 2 MG/ML inj 4 MG IVP (17:55)
[2022-10-30] MEDS: APIXABAN 5 MG TABLET PO (18:31)
--- NOTE | 2022-10-30 18:57 | PC.NURSE ---
Pt. up to floor at 1430 alert and oriented, Pt. C/O nausea, administered zofran x1 and QEasy Patch applied. Pt. on Tele NSR. Pt. O2 100% on RA. Denies Pain and SOB. IV in Right AC saline locked.
[2022-10-30] MEDS: SODIUM CHLORIDE 0.9 % (FLUSH) 10 ML SYRINGE 5 ML IVF ×2 (20:31→20:59)
[2022-10-30] MEDS: PROCHLORPERAZINE 5 MG/ML VIAL IV (20:59)
[2022-10-30] MEDS: diphenhydrAMINE 25 MG CAPSULE PO (23:50)
[2022-10-31 00:32] VITALS: PULSE 69
[2022-10-31 02:49] VITALS: BP 125/75; PULSE 70; RESP 16; TEMP 36.8; O2SAT 98
--- NOTE | 2022-10-31 02:59 | PC.NURSE ---
Pt anxious about breathing. No signs of SOB. Pt resp 16, O2 98%. No labored breathing. Afebrile. Reporting zero pain. Tele NSR.
[2022-10-31] MEDS: PANTOPRAZOLE SODIUM 40 MG INJ IVP (06:08)
[2022-10-31] MEDS: APIXABAN 5 MG TABLET PO (06:09)
[2022-10-31] MEDS: OMEPRAZOLE 20 MG CAPSULE DR PO (06:09)
[2022-10-31 07:00] VITALS: BP 114/76; PULSE 73; PULSE 79; RESP 16; TEMP 36.9; O2SAT 98
[2022-10-31] MEDS: SODIUM CHLORIDE 0.9 % (FLUSH) 10 ML SYRINGE 5 ML IVF (09:02)
[2022-10-31 11:00] VITALS: BP 108/73; PULSE 83; RESP 16; TEMP 36.9; O2SAT 98
--- NOTE | 2022-10-31 14:30 | PC.NURSE ---
End of Shift: Patient pleasant and cooperative. Patient vitally stable, lungs clear, BS WNL, IV intact. Patient denies pain. Patient independent and walking the halls multiple times. Patient tolerating regular diet and urinating. No antiemetic given this shift. Patient tele=NSR. Patient also denies left calf pain.
[2022-10-31 15:35] VITALS: BP 124/84; PULSE 81; RESP 16; TEMP 36.6; O2SAT 99
[2022-10-31 15:58] VITALS: O2SAT 99
--- NOTE | 2022-10-31 16:56 | PM.DS1 ---
DS: Providers Provider Date Seen: 10/31/22 Date of admission: 10/30/22 14:04 Primary care physician: Kole Soriano MD Admitting Clinician: Jake Solorio MD Attending Physician on discharge: Jake Solorio MD Date of Discharge: 10/31/22 DS: Diagnosis Discharge Diagnosis (1) Tachycardia: Status: Acute Problem details: Documented heart rate in the 130s at home. No significant tachycardia since admission (2) Nausea: Status: Acute Problem details: Severe nausea with anorexia yesterday. Mostly resolved today. (3) Anxiety: Status: Acute Problem details: Self reported prominent anxiety yesterday. Improved today. Suspect some underlying anxiety exacerbated by recent symptoms of illness. (4) DVT of lower limb, acute: Status: Acute Problem details: Left leg DVT extending from the proximal femoral vein to the mid peroneal veins. Stable or Improved on current ultrasound (5) Pulmonary embolism: Status: Acute Problem details: Patient had pulmonary embolism approximately 3 and half weeks ago. Treated with thrombolysis and anticoagulation. No evidence of PE on current CT PE study DS: Summary Hospital Course Hospital Course: 67-year-old male who presented to the emergency room with episodes of fairly severe nausea and tachycardia/palpitations. Associated with this he had significant anxiety. Initial evaluation focused on the possibility of recurrent thromboembolic disease. He had DVT and PE at the end of September. Treated with thrombolysis and anticoagulation. CT PE study showed resolution of his PE and ultrasound showed improvement in his DVT. There was no evidence of recurrent or progressive thromboembolic disease causing his current symptoms. Evaluation here was unremarkable without evidence of ongoing tachycardia. Today he was eating and relatively normal diet with improvement in his nausea. He has been monitored for tachycardia and has not had any recurrent symptoms of palpitations or evidence of tachycardia. He reports feeling mostly back to normal. Patient was seen this morning where he was still having mild to moderate symptoms. By this afternoon he reports his symptoms had largely resolved. Status at Discharge Functional status at discharge: independent ambulation Overall status at discharge: patient is progressing back to baseline Time Spent with Patient Time attestation: Total time spent providing and/or coordinating discharge services: Time spent: Greater than 30 minutes Exam Narrative: Exam Narrative: He is alert and appears in no distress. Mildly anxious. Speech is normal. Respirations are clear to auscultation. Cardiovascular: S1, S2, regular rate and rhythm. No murmur gallop or rub. Abdomen: Bowel sounds active. Abdomen is soft without tenderness or mass. Extremities with good perfusion and good pulses. No edema. Const: Vital Signs, click to edit/add: Vital Signs - 24 hr 10/30/22 19:16 10/30/22 19:30 10/30/22 22:58 Temperature 98 F Pulse Rate 92 78 Pulse Rate [Right Pulse Oximeter] 84 Respiratory Rate 16 Blood Pressure [Le ft Arm] 114/79 Pulse Oximetry 98 Oxygen Delivery Me thod Room Air 10/30/22 22:59 10/30/22 23:21 10/30/22 23:22 Temperature 98.3 F Pulse Rate Pulse Rate [Right Pulse Oximeter] 78 78 Respiratory Rate 16 16 Blood Pressure [Le ft Arm] 127/74 Pulse Oximetry 98 98 Oxygen Delivery Me thod Room Air 10/31/22 00:32 10/31/22 02:49 10/31/22 07:00 Temperature 98.3 F Pulse Rate 69 73 Pulse Rate [Right Pulse Oximeter] 70 Respiratory Rate 16 Blood Pressure [Le ft Arm] 125/75 Pulse Oximetry 98 Oxygen Delivery Me thod Room Air 10/31/22 07:00 10/31/22 07:00 10/31/22 07:00 Temperature 98.5 F Pulse Rate Pulse Rate [Right Pulse Oximeter] 79 79 Respiratory Rate 16 16 Blood Pressure [Le ft Arm] 114/76 Pulse Oximetry 98 98 Oxygen Delivery Me thod Room Air 10/31/22 11:00 10/31/22 15:35 10/31/22 15:58 Temperature 98.4 F 97.8 F Pulse Rate Pulse Rate [Right Pulse Oximeter] 83 81 Respiratory Rate 16 16 Blood Pressure [Le ft Arm] 108/73 124/84 Pulse Oximetry 98 99 99 Oxygen Delivery Me thod Room Air Room Air Documenting provider has reviewed patient's vital signs: yes DS: Data Imaging Echo: My impression: Preliminary echo report it shows normal echocardiogram. Discharge Plan Discharge Disposition: Home, Self-Care Date of Admission: 10/30/22 14:04 Attending Provider on Discharge: Maxim Dockery Primary Care Provider: Kole Soriano Condition: Improved Anticipated Discharge Date/Time: 10/31/22 15:39 Discharge Medications: New melatonin 3 mg Tablet 3 mg PO HS PRNQty: 30 0RF Continued omeprazole 20 mg capsule,delayed release(DR/EC) 20 mg PO DAILY Eliquis 5 mg Tablet 5 mg PO BID Discharge Orders: Discharge Order (Routine); Ordered 10/31/22 Ordered By: Maxim Dockery Patient Education: Melatonin (By mouth), Tachycardia (ED) Additional Instructions: Follow-up with your doctor next week to recheck your symptoms. Return to the emergency department if you getting worse. Activity Level: No Restrictions Discharge Diet: Regular Follow Up Appointments: Kole Soriano MD [Primary Care Provider] - 11/03/22 1:40 pm Forms: [email or web address] Info Instructions
== END 2022-10-31 16:45 | disposition home or self-care (01) ==
LOC: ED 11:09 → MEDSURG 14:05
PROVIDERS: Admitting Provider Hospitalist; Emergency Provider Family Medicine; PCP Family Medicine; Visit Provider Hospitalist
DX: I82.412 Acute embolism and thrombosis of left femoral vein (principal); I82.452 Acute embolism and thrombosis of left peroneal vein; R11.0 Nausea; R91.8 Other nonspecific abnormal finding of lung field; R00.0 Tachycardia, unspecified; R61 Generalized hyperhidrosis; R42 Dizziness and giddiness; F41.9 Anxiety disorder, unspecified; Z79.01 Long term (current) use of anticoagulants; Z86.711 Personal history of pulmonary embolism; Z86.718 Personal history of other venous thrombosis and embolism; Z98.890 Other specified postprocedural states; M79.669 Pain in unspecified lower leg; R63.0 Anorexia; Z68.24 Body mass index [BMI] 24.0-24.9, adult
CPT/HCPCS: 36415; 71046; 71260; 80053; 81003; 83605; 83690; 83880; 84145; 84484; 85025; 85379; 87502; 87634; 87635; 93005; 93306; 93970; 94761; 96374; 96375; 99284; 99285; G0378; A9270; C9113; J0780; J2405; Q9967

== ENCOUNTER 2023-05-16 19:34 | Emergency (ER) | payer OTHER, SELFPAY ==
[2023-05-16 19:39] VITALS: BP 130/81; PULSE 85; RESP 14; TEMP 36.2; O2SAT 97; BMI 23.6
--- OUTSIDE RECORDS SUMMARY | 2023-05-16 20:09 | XMS_ITS | Continuity of Care Document ---
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 Name Role Phone Peter Garcia MD Unavailable Unavailable Allergies, Adverse Reactions, Alerts Substance Reaction Status Criticality No Known Allergies Active No Inform ation Medications Medication Instructions Dosage Effective Dates (start - stop) Status Comments omeprazole 20 mg tablet,delayed release take 1 Tablet by Oral route every day 1 Tablet - Active atorvastatin 10 mg tablet take 1 tablet by oral route every day 10 MG - Active Vitamin D3 2,000 unit tablet take 1 Tablet by Oral route every day 1 Tablet - Active Prostate Therapy capsule - Active Procedures Procedure Date X-Ray Exam Of Foot 2v Office/Outpatient Visit, New X-Ray Exam Of Foot 2v Advance Directives Directive Yes / No Effective Date File Name No Information Encounters Encounter Description Practice Location Reason(s) For Visit Diagnoses Date Provider Providers Copied on Encounter [facility] , [address], [place], [address], [place] tel:[phone] [facility] , No Information 6 Jose Green. [facility] [address], [place], [address], [place]. tel:[phone] Office/Outpa tient Visit, [facility] , [address], [place], [address], [place] tel:[phone] [facility] , Musculoskele chiquis pain (chief complaint) Pain in right footTennis elbow of right elbow 5 Serafin Castro. [facility] [address], [place], [address], [place]. tel:[phone] Referring Provider: Gloria Khan, [facility] [address], [place], [address]. tel:[phone] [facility] , [address], [place], [address], [place] tel:[phone] [facility] , No Information 5 Serafin Castro. [facility] [address], [place], [address], [place]. tel:[phone] Family History Family Member Type Diagnosis Age At Onset Mother Problem (finding) [facility] Payers Payer name Insurance type Covered libertarian ID Lynne abdalla(s) [employer] [id number] Social History Type Description Quantity Date Captured Comments Sex Male Smoking Status No Information Chief Complaint And Reason For Visit No Information Reason For Referral Reason For Referral No Information Plan Of Treatment Date Type Action Status Referral Ordered: X-Ray Exam Of Foot 2v ordered History Of Present Illness Encounter Date Complaint History Of Prese nt Illness Musculoskeletal pain Functional Status Date Functional Assessmen t No Information Instructions Date Instruction Additional Infor mation No Information Assessments Type Assessment Date No Information Patient Care Teams Name Effective Dates (start - stop) Status Members No Information
[2023-05-16] MEDS: TETANUS/DIPHTH/PERTUSSIS 0.5 ML SYRINGE IM (20:25)
--- NOTE | 2023-05-16 21:47 | ED.EYEPROB ---
HPI - Eye Problem General Date Seen: 05/16/23 Chief complaint: Eye Problems Stated complaint: hit by branch in right eye Time Seen by Provider: 05/16/23 20:02 Source: patient and family Mode of arrival: ambulatory Limitations: no limitations History of Present Illness HPI Narrative: Delvin hall presents here after he was hit with a branch in his right eye yesterday, he has had gradually increasing photophobia and pain within the eye, he is not using any eyedrops and was wearing glasses when this occurred. He is not were contacts. He comes in today to be seen, he can not really use ibuprofen as a history of being on Eliquis. He is trying acetaminophen chief complaint: eye pain, eye redness and eye injury Onset (ago): day(s) Onset description: sudden Duration: constant Location: right eye Eye Symptoms: redness, pain and photophobia Place: home Mechanism: direct trauma Severity: moderate Treatments Prior to Arrival: none Related Data Patient tetanus UTD: No Home Medications Medication Instructions Recorded Confirmed omeprazole 20 mg capsule,delayed 20 mg PO DAILY 10/08/22 05/16/23 release apixaban 5 mg tablet (Eliquis) 5 mg PO BID 10/30/22 05/16/23 Allergies Allergy/AdvReac Type Severity Reaction Status Date / Time No Known Drug Allergies Allergy Verified 10/08/22 15:41 Review of Systems Status of ROS: Reports: 6 or more systems reviewed and unremarkable except as noted in History and below [facility] Medical History DVT (deep venous thrombosis) ?I82.409 - Acute embolism and thrombosis of unspecified deep veins of unspecified lower extremity (ICD-10) Surgical History History of colonoscopy ?Z98.890 - Other specified postprocedural states (ICD-10) H/O: hemorrhoidectomy ?Z98.890 - Other specified postprocedural states (ICD-10) Social History Narrative: Lives with in [place]. 2 adult children. 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 PCP: Bo Highest level of school completed/degree received: Doctoral degree Smoking Status: Never smoker Do you use any of these nicotine containing products: None How often do you have a drink containing alcohol: 4 or more times a week Alcohol type: wine How many standard drinks containing alcohol do you have on a typical day: 1 or 2 AUDIT-C Alcohol total score: 4 Non-prescribed substance use: denies use Caffeine: Yes (coffee) service: No Exam Narrative: Exam Narrative: Patient is seen in room 4. Pupils are equal round reactive to light, but there is some redness of the right-sided sclera, no puffiness to his lid, he tracks normally, his visual acuity is 2025 bilaterally.tetracaine did take away is discomfort, I added 2 more drops. Fluorescein was used in the slit lamp was you did, he does have a small corneal abrasion noted at the 10 o'clock position of his right eye. There is no fluorescein within his anterior chamber, he does not have a hyphema. Upper lid is everted and normal, and then I did swab this area. There is no evidence of a foreign body. In the lower lid but is checked also. Const: Vital Signs, click to edit/add: Vital Signs - 24 hr 05/16/23 19:39 Temperature 97.2 F L Pulse Rate [Pulse Oximeter] 85 Respiratory Rate 14 Blood Pressure [Ri ght Upper Arm] 130/81 Pulse Oximetry 97 Oxygen Delivery Me thod Room Air Course Vital Signs Vital signs: Initial Vital Signs Temperature 97.2 F L 05/16/23 19:39 Temperature Source Temporal Artery Scan 05/16/23 19:39 Pulse Rate 85 05/16/23 19:39 Pulse Rhythm Regular 05/16/23 19:39 Respiratory Rate 14 05/16/23 19:39 Blood Pressure 130/81 05/16/23 19:39 Blood Pressure Mean 97 05/16/23 19:39 Pulse Oximetry 97 05/16/23 19:39 Oxygen Delivery Method Room Air 05/16/23 19:39 Vital Signs Temperature 97.2 F L 05/16/23 19:39 Pulse Rate 85 05/16/23 19:39 Respiratory Rate 14 05/16/23 19:39 Blood Pressure 130/81 05/16/23 19:39 Pulse Oximetry 97 05/16/23 19:39 Oxygen Delivery Method Room Air 05/16/23 19:39 Temperature 97.2 F L 05/16/23 19:39 Pulse Rate 85 05/16/23 19:39 Respiratory Rate 14 05/16/23 19:39 Blood Pressure 130/81 05/16/23 19:39 Pulse Oximetry 97 05/16/23 19:39 Oxygen Delivery Method Room Air 05/16/23 19:39 Discharge Plan Discharge Clinical Impression: Abrasion, corneal Patient Disposition: Home w/ Parent or Adult Condition: Stable Instructions: Corneal Abrasion (ED) Additional Instructions: Acetaminophen 1 g 3 times a day, unfortunately given the your history and use of the anticoagulants I would not recommend you add in ibuprofen. Eyedrops as directed, if they are still pain in 2 days then I would recommend you see 1 of the eye doctors in [facility] for a recheck, use of sunglasses when he go outside. Activity Level: Light activity Prescriptions: No Action omeprazole 20 mg capsule,delayed release(DR/EC) 20 mg PO DAILY Eliquis 5 mg Tablet 5 mg PO BID Follow Up/Referrals: Kole Soriano MD [Primary Care Provider] - Stand Alone Forms: [email or web address] Info Instructions
== END 2023-05-16 20:35 | disposition home or self-care (01) ==
PROVIDERS: Emergency Provider Family Medicine; PCP Family Medicine
DX: S05.01XA Injury of conjunctiva and corneal abrasion without foreign body, right eye, initial encounter (principal); W22.8XXA Striking against or struck by other objects, initial encounter
CPT/HCPCS: 90471; 90715; 99283; 99284; A9270

== ENCOUNTER 2023-06-17 15:40 | Outpatient (CLI) | payer OTHER, SELFPAY ==
--- OUTSIDE RECORDS SUMMARY | 2023-06-19 20:54 | XMS_ITS | Continuity of Care Document ---
Author Name Unknown Organization [facility] Address [address] [place] [address] Phone Care Team Providers Care Environmental Quality Analyst Name Role Phone Peter Garcia MD Unavailable [...] [facility] , [address], [place], [address], [place] tel:[phone] [facility] , No Information 6 Jose Green. [facility] [address], [place], [address], [place]. tel:[phone] Office/Outpa tient Visit, New [facility] , [address], [place], [address], [place] tel:[phone] [facility] , Musculoskele chiquis pain (chief complaint) Pain in right footTennis elbow of right elbow 5 Serafin Castro. [facility] [address], [place], [address], [place]. tel:[phone] Referring Provider: Gloria Khan, [facility] [address], [place], [address]. tel:[phone] [facility] , [address], [place], [address], [place] tel:[phone] [facility] , No Information 5 Serafin Castro. [facility] [address], [place], [address], [place]. tel:[phone] Family History Family Member Type Diagnosis Age At Onset Mother Problem (finding) [facility] Payers Payer name Insurance type Covered green party ID Lynne abdalla(s) [employer] Tempo [id number] Social History Type Description Quantity Date Captured [...]
== END 2023-06-17 15:41 | disposition home or self-care (01) ==
LOC: AMB 06-19 20:52
PROVIDERS: PCP Family Medicine; Visit Provider Emergency Medicine Emergency Medical Services
DX: R07.89 Other chest pain (principal); R42 Dizziness and giddiness
CPT/HCPCS: A0425; A0427

== ENCOUNTER 2023-06-17 16:03 | Emergency (ER) | payer OTHER, SELFPAY ==
[2023-06-17] VITALS (10 sets, daily range): BP systolic 106–127; BP diastolic 67–83; PULSE 86–102; RESP 16; TEMP 36.3; O2SAT 94–99; BMI 23.1
--- OUTSIDE RECORDS SUMMARY | 2023-06-17 16:51 | XMS_ITS | Continuity of Care Document ---
Author Name Unknown Organization [facility] Address [address] [facility] [place] [address] Phone Care Team Providers Care Reducer Name Role Phone Peter Garcia MD Unavailable [...] [facility] , [address], [place], [address], [place] tel:[phone] [facility] , No Information 6 Jose Green. [facility] [address], [place], [address], [place]. tel:[phone] Office/Outpa tient Visit, [facility] , [address], [place], [address], [place] tel:[phone] [facility] , Musculoskele chiquis pain (chief complaint) Pain in right footTennis elbow of right elbow 5 Serafin Castro. [facility] [address], [place], [address], [place]. tel:[phone] Referring Provider: Gloria Khan, [facility] [address], [place], [address]. tel:[phone] [facility] , [address], [place], [address], [place] tel:[phone] [facility] , No Information 5 Serafin Castro. [facility] [address], [place], [address], [place]. tel:[phone] Family History Family Member Type Diagnosis Age At Onset Mother Problem (finding) [facility] Payers Payer name Insurance type Covered libertarian ID Lynne abdalla(s) [employer] [id number] Social History Type Description Quantity Date Captured [...]
[2023-06-17 16:54] LABS: Lactate* 1.8 mmol/L (0.5-1.9)
--- NOTE | 2023-06-17 16:54 | ED.NURSE ---
Duplicate orders cancelled from chart. Dr. Isbell aware.
[2023-06-17 16:57] LABS: Basophils Absolute Auto 0.04 K/uL (0.00-0.30); Basophils Percent Auto 0.5 % (0.0-3.0); Eosinophils Absolute Auto 0.24 K/uL (0.00-0.50); Eosinophils Percent Auto 2.9 % (0.0-7.0); Hematocrit 39.7 % (37.0-53.0); Hemoglobin* 12.7 gm/dL (13.5-17.5); Immature Granulocytes Abs Auto 0.01 K/uL (0.00-0.30); Immature Granulocytes Pct Auto 0.1 %; Lymphocytes Absolute Auto 2.49 K/uL (0.90-2.90); Lymphocytes Percent Auto 29.7 % (20-44); Mean Corpuscular HGB Conc 32 gm/dL (32-36); Mean Corpuscular Hemoglobin 30 pg (26-34); Mean Corpuscular Volume 95 fL (80-100); Monocytes Percent Auto 9.8 % (0.0-11.0); Neutrophils Absolute Auto 4.77 K/uL (1.7-7.0); Platelet Count* 298 K/uL (140-440); RDW Coefficient of Variation % 13.7 % (11.5-15.5); White Blood Count* 8.37 K/uL (4.50-11.00)
[2023-06-17 16:59] LABS: Slide Review Reflex No
[2023-06-17 17:02] LABS: Albumin* 4.2 g/dL (3.3-5.0); Chloride* 105 mmol/L (96-114); Sodium* 139 mmol/L (135-149)
[2023-06-17 17:03] LABS: Chloride* 105 mmol/L (96-114); Potassium* 3.9 mmol/L (3.6-5.1); Sodium* 138 mmol/L (135-149)
[2023-06-17 17:05] LABS: Anion Gap 9 mEq/L (7-15); Aspartate Amino Transferase* 39 U/L (12-35); Bilirubin Direct* 0.1 mg/dL (0.0-0.5); Bilirubin Total* 0.5 mg/dL (0.1-1.5); Carbon Dioxide* 25 mmol/L (20-32); Creatinine* 0.9 mg/dL (0.5-1.5); Est. Creatinine Clearance* 82.78; Estimated Glomerular Filt Rate 94 ml/min
[2023-06-17 17:06] LABS: Alanine Aminotransferase* 29 U/L (4-50); Alkaline Phosphatase* 46 U/L (40-150); Anion Gap 9 mEq/L (7-15); Blood Urea Nitrogen* 15 mg/dL (7-30); Calcium* 9.5 mg/dL (8.4-10.6); Carbon Dioxide* 24 mmol/L (20-32); Creatinine* 0.9 mg/dL (0.5-1.5); D Dimer Quantitative* < 0.27 ug/ml (0.00-0.50); Est. Creatinine Clearance* 82.78; Estimated Glomerular Filt Rate 94 ml/min; Glucose* 95 mg/dL (60-115)
[2023-06-17 17:07] LABS: Calcium* 9.5 mg/dL (8.4-10.6); Glucose* 94 mg/dL (60-115)
[2023-06-17 17:15] LABS: C Reactive Protein* < 0.5 mg/dL (0.5-1.0); NT Pro B Type NatriureticPept* 25 pg/mL
[2023-06-17 17:54] LABS: Basophils Absolute Auto 0.03 K/uL (0.00-0.30); Basophils Percent Auto 0.4 % (0.0-3.0); Eosinophils Absolute Auto 0.26 K/uL (0.00-0.50); Eosinophils Percent Auto 3.1 % (0.0-7.0); Hematocrit 39.7 % (37.0-53.0); Hemoglobin* 12.7 gm/dL (13.5-17.5); Immature Granulocytes Abs Auto 0.01 K/uL (0.00-0.30); Immature Granulocytes Pct Auto 0.1 %; Lymphocytes Absolute Auto 2.74 K/uL (0.90-2.90); Lymphocytes Percent Auto 32.2 % (20-44); Mean Corpuscular HGB Conc 32 gm/dL (32-36); Mean Corpuscular Hemoglobin 30 pg (26-34); Mean Corpuscular Volume 94 fL (80-100); Monocytes Percent Auto 9.9 % (0.0-11.0); Neutrophils Absolute Auto 4.62 K/uL (1.7-7.0); Neutrophils Percent Auto 54.3 % (42.0-72.0); Platelet Count* 291 K/uL (140-440); RDW Coefficient of Variation % 13.7 % (11.5-15.5); Red Blood Count 4.22 m/uL (4.30-5.90)
[2023-06-17 17:55] LABS: Slide Review Reflex No
--- NOTE | 2023-06-17 18:00 | ED_ITS ---
HPI - General Adult General Chief complaint: Chest Pain Stated complaint: chest pain Time Seen by Provider: 06/17/23 16:17 Source: patient and EMS Mode of arrival: EMS Limitations: no limitations History of Present Illness HPI narrative: Patient is a 68-year-old male who has a history of DVT, had a large clot burden DVT in September of 2022 with significant PE treated with lytics. He has been maintained on Eliquis since then and takes it faithfully. He is brought in by EMS today after suffering near syncope while at a bar having a glass of Prosecco while waiting for his to finish some task that she was doing. He said that he suddenly felt very nauseated, unwell, and like he was going to faint. The director of in service education called 911. Medics actually reported this as a STEMI, based on slight ST elevation in 80 are and V1. I saw their tracing. I did not see any evidence of STEMI on the EMS tracing. Patient is adamant he did not pass out, but simply felt like he might. By the time he arrived to the ER he felt better. He apparently reported slight chest pressure to the medics but denies that on arrival. He denies shortness of breath, palpitations. He tells me that he has had multiple episodes like this since having his pulmonary embolism. He has been seen in the hospital here at least once, which he tells me he had a thorough workup and nothing was found. He also tells me that he has been seen by at least a couple strength and conditioning coach, Cardiology, has had an echo which was normal without evidence of heart strain. Tells me pulmonology has told him his lungs are completely normal. No one has been able to find any cause for these episodes that he has. They are always the same, but he does say that today was more severe. He has never had a complete syncopal episode to his knowledge. He does have an Apple watch with an EKG function which watches for AFib, he has never had an episode of AFib. He did have some kind of monitor for a week watching for arrhythmia as and did not have any abnormalities. I also looked at his health data on his phone from what his what is recorded throughout the day today, I do not see any significant differences in heart rate variability, and no alerts in terms of EKG monitoring for AFib. He denies any recent illness, vomiting, diarrhea, black or bloody stools, cough, etcetera. Related Data Home Medications Medication Instructions Recorded Confirmed omeprazole 20 mg capsule,delayed 20 mg PO DAILY 10/08/22 06/17/23 release apixaban 5 mg tablet (Eliquis) 5 mg PO BID 10/30/22 06/17/23 rosuvastatin 5 mg tablet 5 mg PO DAILY 06/17/23 06/17/23 Allergies Allergy/AdvReac Type Severity Reaction Status Date / Time No Known Drug Allergies Allergy Verified 06/17/23 16:17 Review of Systems Status of ROS: Reports: 10 or more systems reviewed and unremarkable except as noted in History and below [facility] Medical History DVT (deep venous thrombosis) ?I82.409 - Acute embolism and thrombosis of unspecified deep veins of unspecified lower extremity (ICD-10) Surgical History History of colonoscopy ?Z98.890 - Other specified postprocedural states (ICD-10) H/O: hemorrhoidectomy ?Z98.890 - Other specified postprocedural states (ICD-10) Social History Narrative: Lives with in [place]. 2 adult children. 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 PCP: Bo Highest level of school completed/degree received: Doctoral degree Smoking Status: Never smoker Do you use any of these nicotine containing products: None How often do you have a drink containing alcohol: 4 or more times a week Alcohol type: wine How many standard drinks containing alcohol do you have on a typical day: 1 or 2 How often do you have six or more drinks on one occasion: Never AUDIT-C Alcohol total score: 4 Non-prescribed substance use: denies use Caffeine: Yes (coffee) service: No Exam Narrative: Exam Narrative: Vital signs as noted above. In general, an alert, well-appearing patient. Head: Normocephalic, atraumatic. Eyes: Pupils are equal reactive. Extraocular movements are full. Conjunctivae are normal. ENT: Mucous membranes are moist. Throat is normal. Neck: Supple without lymphadenopathy. Heart: Regular rate and rhythm. No murmur or rub. Lungs: Clear bilaterally. No increased work of breathing, crackles or wheezes. Abdomen: Soft and nontender. No organomegaly. Extremities: Well perfused. No edema. No calf tenderness. Pulses intact. Neurologic: Patient is alert and oriented to person and place. Speech is fluent. Face is symmetric. Moves all extremities equally. Affect: Normal. Skin: Warm and dry. Well perfused. Const: Vital Signs, click to edit/add: Vital Signs - 24 hr 06/17/23 16:10 06/17/23 16:32 06/17/23 16:36 Temperature 97.3 F L Pulse Rate 92 Pulse Rate [Pulse Oximeter] 102 H Respiratory Rate 16 Blood Pressure 112/72 Blood Pressure [Le ft Upper Arm] 127/83 Pulse Oximetry 98 94 Oxygen Delivery Me thod Room Air 06/17/23 16:51 06/17/23 17:00 06/17/23 17:02 Temperature Pulse Rate 88 89 Pulse Rate [Pulse Oximeter] Respiratory Rate Blood Pressure 107/70 Blood Pressure [Le ft Upper Arm] Pulse Oximetry 98 97 98 Oxygen Delivery Me thod 06/17/23 17:30 06/17/23 17:32 06/17/23 18:00 Temperature Pulse Rate 94 86 87 Pulse Rate [Pulse Oximeter] Respiratory Rate Blood Pressure 106/68 Blood Pressure [Le ft Upper Arm] Pulse Oximetry 98 99 98 Oxygen Delivery Me thod 06/17/23 18:02 Temperature Pulse Rate 86 Pulse Rate [Pulse Oximeter] Respiratory Rate Blood Pressure 108/67 Blood Pressure [Le ft Upper Arm] Pulse Oximetry 99 Oxygen Delivery Me thod Course Course ED Course: He is maintained on the monitor here. He had an EKG on arrival which showed sinus tachycardia with a ventricular rate of 102, incomplete right bundle-branch block without acute ST segment changes. An initial troponin is 0. Labs are unremarkable. His white blood cell count is 8.5, hemoglobin minimally low at 12.7. D-dimer is less than 0.27. Metabolic panel is entirely within normal limits. Medics reported a blood sugar of 120, here it is 95. Lactate is 1.8. LFTs are normal with the exception of an AST of 39. CRP is less than 0.5. BNP is 25. TSH is normal at 2.5. I will repeat a 2 hour troponin, but my suspicion for acute coronary syndrome is low. I do not believe this represents recurrent PE with a negative D-dimer and dedicated Eliquis. I think the likelihood of arrhythmia is fairly low given that he has been monitored previously, but he said he did not have any spells during that time, and perhaps something like a ZIO patch might be useful. The fact that he is having repeated bouts like this suggest something like either a vagal spell, some brief cardiac event such as a bradycardic or tachycardic episode, or less likely some kind of neurologic spell. It sounds as if he has checked his heart rate during at least some of these spells and it tends to be between 90 and 120, making a cardiac cause less likely. It is not clear to me that this is necessarily related directly to his PE, though these events have been happening since his PE. Repeat troponin was 0. Ultimately, I do not have any real diagnosis for him. I have asked him to follow up with Dr. Soriano, and they can discuss further. Life-threatening causes have been ruled out. Vital Signs Vital signs: Initial Vital Signs Temperature 97.3 F L 06/17/23 16:10 Temperature Source Temporal Artery Scan 06/17/23 16:10 Pulse Rate 102 H 06/17/23 16:10 Pulse Rhythm Regular 06/17/23 16:10 Pulse Strength 3+ Normal 06/17/23 16:10 Respiratory Rate 16 06/17/23 16:10 Blood Pressure 127/83 06/17/23 16:10 Blood Pressure Mean 97 06/17/23 16:10 Blood Pressure Position Semi-Fowlers 06/17/23 16:10 Pulse Oximetry 98 06/17/23 16:10 Oxygen Delivery Method Room Air 06/17/23 16:10 Vital Signs Temperature 97.3 F L 06/17/23 16:10 Pulse Rate 102 H 06/17/23 16:10 Respiratory Rate 16 06/17/23 16:10 Blood Pressure 127/83 06/17/23 16:10 Pulse Oximetry 98 06/17/23 16:10 Oxygen Delivery Method Room Air 06/17/23 16:10 Temperature 97.3 F L 06/17/23 16:10 Pulse Rate 86 06/17/23 18:02 Respiratory Rate 16 06/17/23 16:10 Blood Pressure 108/67 06/17/23 18:02 Pulse Oximetry 99 06/17/23 18:02 Oxygen Delivery Method Room Air 06/17/23 16:10 Medical Decision Making Lab Data Labs: Lab Results 06/17/23 06/17/23 06/17/23 Range/Units 16:08 16:10 16:10 WBC 8.37 8.50 (4.50-11.00) K/uL RBC 4.20 L (4.30-5.90) m/uL Hgb (13.5-17.5) gm/dL Hct (37.0-53.0) % MCV (80-100) fL MCH (26-34) pg MCHC (32-36) gm/dL RDW Coeff of Jennifer (11.5-15.5) % Plt Count (140-440) K/uL Neut % (Auto) (42.0-72.0) % Lymph % (Auto) (20-44) % Bailey % (Auto) (0.0-11.0) % Eos % (Auto) (0.0-7.0) % Baso % (Auto) (0.0-3.0) % Neut # (Auto) (1.7-7.0) K/uL Lymph # (Auto) (0.90-2.90) K/uL Bailey # (Auto) (0.00-0.90) K/UL Eos # (Auto) (0.00-0.50) K/uL Baso # (Auto) (0.00-0.30) K/uL Abs Immat Gran (auto) (0.00-0.30) K/uL Imm/Tot Granulo (auto) % D-Dimer Quant (PE/DVT) (0.00-0.50) ug/ml Sodium (135-149) mmol/L Potassium (3.6-5.1) mmol/L Chloride (96-114) mmol/L Carbon Dioxide (20-32) mmol/L Anion Gap (7-15) mEq/L BUN (7-30) mg/dL Creatinine (0.5-1.5) mg/dL Estimated Creat Clear Estimated GFR ml/min Glucose (60-115) mg/dL Lactate (0.5-1.9) mmol/L Calcium (8.4-10.6) mg/dL Total Bilirubin (0.1-1.5) mg/dL Direct Bilirubin (0.0-0.5) mg/dL AST (12-35) U/L ALT (4-50) U/L Alkaline Phosphatase (40-150) U/L C-Reactive Protein (0.5-1.0) mg/dL NT-Pro-B Natriuret Pep pg/mL Total Protein (6.0-8.3) g/dL Albumin (3.3-5.0) g/dL TSH (0.270-4.200) uIU/mL POC Troponin I 0.00 L (0.01-0.04) ng/ml 06/17/23 06/17/23 06/17/23 Range/Units 16:10 16:10 16:10 WBC (4.50-11.00) K/uL RBC 4.22 L (4.30-5.90) m/uL Hgb 12.7 L 12.7 L (13.5-17.5) gm/dL Hct 39.7 39.7 (37.0-53.0) % MCV 95 (80-100) fL MCH (26-34) pg MCHC (32-36) gm/dL RDW Coeff of Jennifer (11.5-15.5) % Plt Count (140-440) K/uL Neut % (Auto) (42.0-72.0) % Lymph % (Auto) (20-44) % Bailey % (Auto) (0.0-11.0) % Eos % (Auto) (0.0-7.0) % Baso % (Auto) (0.0-3.0) % Neut # (Auto) (1.7-7.0) K/uL Lymph # (Auto) (0.90-2.90) K/uL Bailey # (Auto) (0.00-0.90) K/UL Eos # (Auto) (0.00-0.50) K/uL Baso # (Auto) (0.00-0.30) K/uL Abs Immat Gran (auto) (0.00-0.30) K/uL Imm/Tot Granulo (auto) % D-Dimer Quant (PE/DVT) (0.00-0.50) ug/ml Sodium (135-149) mmol/L Potassium (3.6-5.1) mmol/L Chloride (96-114) mmol/L Carbon Dioxide (20-32) mmol/L Anion Gap (7-15) mEq/L BUN (7-30) mg/dL Creatinine (0.5-1.5) mg/dL Estimated Creat Clear Estimated GFR ml/min Glucose (60-115) mg/dL Lactate (0.5-1.9) mmol/L Calcium (8.4-10.6) mg/dL Total Bilirubin (0.1-1.5) mg/dL Direct Bilirubin (0.0-0.5) mg/dL AST (12-35) U/L ALT (4-50) U/L Alkaline Phosphatase (40-150) U/L C-Reactive Protein (0.5-1.0) mg/dL NT-Pro-B Natriuret Pep pg/mL Total Protein (6.0-8.3) g/dL Albumin (3.3-5.0) g/dL TSH (0.270-4.200) uIU/mL POC Troponin I (0.01-0.04) ng/ml 06/17/23 06/17/23 06/17/23 Range/Units 16:10 16:10 16:10 WBC (4.50-11.00) K/uL RBC (4.30-5.90) m/uL Hgb (13.5-17.5) gm/dL Hct (37.0-53.0) % MCV 94 (80-100) fL MCH 30 30 (26-34) pg MCHC 32 32 (32-36) gm/dL RDW Coeff of Jennifer 13.7 (11.5-15.5) % Plt Count (140-440) K/uL Neut % (Auto) (42.0-72.0) % Lymph % (Auto) (20-44) % Bailey % (Auto) (0.0-11.0) % Eos % (Auto) (0.0-7.0) % Baso % (Auto) (0.0-3.0) % Neut # (Auto) (1.7-7.0) K/uL Lymph # (Auto) (0.90-2.90) K/uL Bailey # (Auto) (0.00-0.90) K/UL Eos # (Auto) (0.00-0.50) K/uL Baso # (Auto) (0.00-0.30) K/uL Abs Immat Gran (auto) (0.00-0.30) K/uL Imm/Tot Granulo (auto) % D-Dimer Quant (PE/DVT) (0.00-0.50) ug/ml Sodium (135-149) mmol/L Potassium (3.6-5.1) mmol/L Chloride (96-114) mmol/L Carbon Dioxide (20-32) mmol/L Anion Gap (7-15) mEq/L BUN (7-30) mg/dL Creatinine (0.5-1.5) mg/dL Estimated Creat Clear Estimated GFR ml/min Glucose (60-115) mg/dL Lactate (0.5-1.9) mmol/L Calcium (8.4-10.6) mg/dL Total Bilirubin (0.1-1.5) mg/dL Direct Bilirubin (0.0-0.5) mg/dL AST (12-35) U/L ALT (4-50) U/L Alkaline Phosphatase (40-150) U/L C-Reactive Protein (0.5-1.0) mg/dL NT-Pro-B Natriuret Pep pg/mL Total Protein (6.0-8.3) g/dL Albumin (3.3-5.0) g/dL TSH (0.270-4.200) uIU/mL POC Troponin I (0.01-0.04) ng/ml 06/17/23 06/17/23 06/17/23 Range/Units 16:10 16:10 16:10 WBC (4.50-11.00) K/uL RBC (4.30-5.90) m/uL Hgb (13.5-17.5) gm/dL Hct (37.0-53.0) % MCV (80-100) fL MCH (26-34) pg MCHC (32-36) gm/dL RDW Coeff of Jennifer 13.7 (11.5-15.5) % Plt Count 298 291 (140-440) K/uL Neut % (Auto) 57.0 54.3 (42.0-72.0) % Lymph % (Auto) 29.7 (20-44) % Bailey % (Auto) (0.0-11.0) % Eos % (Auto) (0.0-7.0) % Baso % (Auto) (0.0-3.0) % Neut # (Auto) (1.7-7.0) K/uL Lymph # (Auto) (0.90-2.90) K/uL Bailey # (Auto) (0.00-0.90) K/UL Eos # (Auto) (0.00-0.50) K/uL Baso # (Auto) (0.00-0.30) K/uL Abs Immat Gran (auto) (0.00-0.30) K/uL Imm/Tot Granulo (auto) % D-Dimer Quant (PE/DVT) (0.00-0.50) ug/ml Sodium (135-149) mmol/L Potassium (3.6-5.1) mmol/L Chloride (96-114) mmol/L Carbon Dioxide (20-32) mmol/L Anion Gap (7-15) mEq/L BUN (7-30) mg/dL Creatinine (0.5-1.5) mg/dL Estimated Creat Clear Estimated GFR ml/min Glucose (60-115) mg/dL Lactate (0.5-1.9) mmol/L Calcium (8.4-10.6) mg/dL Total Bilirubin (0.1-1.5) mg/dL Direct Bilirubin (0.0-0.5) mg/dL AST (12-35) U/L ALT (4-50) U/L Alkaline Phosphatase (40-150) U/L C-Reactive Protein (0.5-1.0) mg/dL NT-Pro-B Natriuret Pep pg/mL Total Protein (6.0-8.3) g/dL Albumin (3.3-5.0) g/dL TSH (0.270-4.200) uIU/mL POC Troponin I (0.01-0.04) ng/ml 06/17/23 06/17/23 06/17/23 Range/Units 16:10 16:10 16:10 WBC (4.50-11.00) K/uL RBC (4.30-5.90) m/uL Hgb (13.5-17.5) gm/dL Hct (37.0-53.0) % MCV (80-100) fL MCH (26-34) pg MCHC (32-36) gm/dL RDW Coeff of Jennifer (11.5-15.5) % Plt Count (140-440) K/uL Neut % (Auto) (42.0-72.0) % Lymph % (Auto) 32.2 (20-44) % Bailey % (Auto) 9.8 9.9 (0.0-11.0) % Eos % (Auto) 2.9 3.1 (0.0-7.0) % Baso % (Auto) 0.5 (0.0-3.0) % Neut # (Auto) (1.7-7.0) K/uL Lymph # (Auto) (0.90-2.90) K/uL Bailey # (Auto) (0.00-0.90) K/UL Eos # (Auto) (0.00-0.50) K/uL Baso # (Auto) (0.00-0.30) K/uL Abs Immat Gran (auto) (0.00-0.30) K/uL Imm/Tot Granulo (auto) % D-Dimer Quant (PE/DVT) (0.00-0.50) ug/ml Sodium (135-149) mmol/L Potassium (3.6-5.1) mmol/L Chloride (96-114) mmol/L Carbon Dioxide (20-32) mmol/L Anion Gap (7-15) mEq/L BUN (7-30) mg/dL Creatinine (0.5-1.5) mg/dL Estimated Creat Clear Estimated GFR ml/min Glucose (60-115) mg/dL Lactate (0.5-1.9) mmol/L Calcium (8.4-10.6) mg/dL Total Bilirubin (0.1-1.5) mg/dL Direct Bilirubin (0.0-0.5) mg/dL AST (12-35) U/L ALT (4-50) U/L Alkaline Phosphatase (40-150) U/L C-Reactive Protein (0.5-1.0) mg/dL NT-Pro-B Natriuret Pep pg/mL Total Protein (6.0-8.3) g/dL Albumin (3.3-5.0) g/dL TSH (0.270-4.200) uIU/mL POC Troponin I (0.01-0.04) ng/ml 06/17/23 06/17/23 06/17/23 Range/Units 16:10 16:10 16:10 WBC (4.50-11.00) K/uL RBC (4.30-5.90) m/uL Hgb (13.5-17.5) gm/dL Hct (37.0-53.0) % MCV (80-100) fL MCH (26-34) pg MCHC (32-36) gm/dL RDW Coeff of Jennifer (11.5-15.5) % Plt Count (140-440) K/uL Neut % (Auto) (42.0-72.0) % Lymph % (Auto) (20-44) % Bailey % (Auto) (0.0-11.0) % Eos % (Auto) (0.0-7.0) % Baso % (Auto) 0.4 (0.0-3.0) % Neut # (Auto) 4.77 4.62 (1.7-7.0) K/uL Lymph # (Auto) 2.49 2.74 (0.90-2.90) K/uL Bailey # (Auto) 0.80 (0.00-0.90) K/UL Eos # (Auto) (0.00-0.50) K/uL Baso # (Auto) (0.00-0.30) K/uL Abs Immat Gran (auto) (0.00-0.30) K/uL Imm/Tot Granulo (auto) % D-Dimer Quant (PE/DVT) (0.00-0.50) ug/ml Sodium (135-149) mmol/L Potassium (3.6-5.1) mmol/L Chloride (96-114) mmol/L Carbon Dioxide (20-32) mmol/L Anion Gap (7-15) mEq/L BUN (7-30) mg/dL Creatinine (0.5-1.5) mg/dL Estimated Creat Clear Estimated GFR ml/min Glucose (60-115) mg/dL Lactate (0.5-1.9) mmol/L Calcium (8.4-10.6) mg/dL Total Bilirubin (0.1-1.5) mg/dL Direct Bilirubin (0.0-0.5) mg/dL AST (12-35) U/L ALT (4-50) U/L Alkaline Phosphatase (40-150) U/L C-Reactive Protein (0.5-1.0) mg/dL NT-Pro-B Natriuret Pep pg/mL Total Protein (6.0-8.3) g/dL Albumin (3.3-5.0) g/dL TSH (0.270-4.200) uIU/mL POC Troponin I (0.01-0.04) ng/ml 06/17/23 06/17/23 06/17/23 Range/Units 16:10 16:10 16:10 WBC (4.50-11.00) K/uL RBC (4.30-5.90) m/uL Hgb (13.5-17.5) gm/dL Hct (37.0-53.0) % MCV (80-100) fL MCH (26-34) pg MCHC (32-36) gm/dL RDW Coeff of Jennifer (11.5-15.5) % Plt Count (140-440) K/uL Neut % (Auto) (42.0-72.0) % Lymph % (Auto) (20-44) % Bailey % (Auto) (0.0-11.0) % Eos % (Auto) (0.0-7.0) % Baso % (Auto) (0.0-3.0) % Neut # (Auto) (1.7-7.0) K/uL Lymph # (Auto) (0.90-2.90) K/uL Bailey # (Auto) 0.80 (0.00-0.90) K/UL Eos # (Auto) 0.24 0.26 (0.00-0.50) K/uL Baso # (Auto) 0.04 0.03 (0.00-0.30) K/uL Abs Immat Gran (auto) 0.01 (0.00-0.30) K/uL Imm/Tot Granulo (auto) % D-Dimer Quant (PE/DVT) (0.00-0.50) ug/ml Sodium (135-149) mmol/L Potassium (3.6-5.1) mmol/L Chloride (96-114) mmol/L Carbon Dioxide (20-32) mmol/L Anion Gap (7-15) mEq/L BUN (7-30) mg/dL Creatinine (0.5-1.5) mg/dL Estimated Creat Clear Estimated GFR ml/min Glucose (60-115) mg/dL Lactate (0.5-1.9) mmol/L Calcium (8.4-10.6) mg/dL Total Bilirubin (0.1-1.5) mg/dL Direct Bilirubin (0.0-0.5) mg/dL AST (12-35) U/L ALT (4-50) U/L Alkaline Phosphatase (40-150) U/L C-Reactive Protein (0.5-1.0) mg/dL NT-Pro-B Natriuret Pep pg/mL Total Protein (6.0-8.3) g/dL Albumin (3.3-5.0) g/dL TSH (0.270-4.200) uIU/mL POC Troponin I (0.01-0.04) ng/ml 06/17/23 06/17/23 06/17/23 Range/Units 16:10 16:10 16:10 WBC (4.50-11.00) K/uL RBC (4.30-5.90) m/uL Hgb (13.5-17.5) gm/dL Hct (37.0-53.0) % MCV (80-100) fL MCH (26-34) pg MCHC (32-36) gm/dL RDW Coeff of Jennifer (11.5-15.5) % Plt Count (140-440) K/uL Neut % (Auto) (42.0-72.0) % Lymph % (Auto) (20-44) % Bailey % (Auto) (0.0-11.0) % Eos % (Auto) (0.0-7.0) % Baso % (Auto) (0.0-3.0) % Neut # (Auto) (1.7-7.0) K/uL Lymph # (Auto) (0.90-2.90) K/uL Bailey # (Auto) (0.00-0.90) K/UL Eos # (Auto) (0.00-0.50) K/uL Baso # (Auto) (0.00-0.30) K/uL Abs Immat Gran (auto) 0.01 (0.00-0.30) K/uL Imm/Tot Granulo (auto) 0.1 0.1 % D-Dimer Quant (PE/DVT) < 0.27 (0.00-0.50) ug/ml Sodium 138 139 (135-149) mmol/L Potassium 3.9 (3.6-5.1) mmol/L Chloride (96-114) mmol/L Carbon Dioxide (20-32) mmol/L Anion Gap (7-15) mEq/L BUN (7-30) mg/dL Creatinine (0.5-1.5) mg/dL Estimated Creat Clear Estimated GFR ml/min Glucose (60-115) mg/dL Lactate (0.5-1.9) mmol/L Calcium (8.4-10.6) mg/dL Total Bilirubin (0.1-1.5) mg/dL Direct Bilirubin (0.0-0.5) mg/dL AST (12-35) U/L ALT (4-50) U/L Alkaline Phosphatase (40-150) U/L C-Reactive Protein (0.5-1.0) mg/dL NT-Pro-B Natriuret Pep pg/mL Total Protein (6.0-8.3) g/dL Albumin (3.3-5.0) g/dL TSH (0.270-4.200) uIU/mL POC Troponin I (0.01-0.04) ng/ml 06/17/23 06/17/23 06/17/23 Range/Units 16:10 16:10 16:10 WBC (4.50-11.00) K/uL RBC (4.30-5.90) m/uL Hgb (13.5-17.5) gm/dL Hct (37.0-53.0) % MCV (80-100) fL MCH (26-34) pg MCHC (32-36) gm/dL RDW Coeff of Jennifer (11.5-15.5) % Plt Count (140-440) K/uL Neut % (Auto) (42.0-72.0) % Lymph % (Auto) (20-44) % Bailey % (Auto) (0.0-11.0) % Eos % (Auto) (0.0-7.0) % Baso % (Auto) (0.0-3.0) % Neut # (Auto) (1.7-7.0) K/uL Lymph # (Auto) (0.90-2.90) K/uL Bailey # (Auto) (0.00-0.90) K/UL Eos # (Auto) (0.00-0.50) K/uL Baso # (Auto) (0.00-0.30) K/uL Abs Immat Gran (auto) (0.00-0.30) K/uL Imm/Tot Granulo (auto) % D-Dimer Quant (PE/DVT) (0.00-0.50) ug/ml Sodium (135-149) mmol/L Potassium 3.9 (3.6-5.1) mmol/L Chloride 105 105 (96-114) mmol/L Carbon Dioxide 24 25 (20-32) mmol/L Anion Gap 9 (7-15) mEq/L BUN (7-30) mg/dL Creatinine (0.5-1.5) mg/dL Estimated Creat Clear Estimated GFR ml/min Glucose (60-115) mg/dL Lactate (0.5-1.9) mmol/L Calcium (8.4-10.6) mg/dL Total Bilirubin (0.1-1.5) mg/dL Direct Bilirubin (0.0-0.5) mg/dL AST (12-35) U/L ALT (4-50) U/L Alkaline Phosphatase (40-150) U/L C-Reactive Protein (0.5-1.0) mg/dL NT-Pro-B Natriuret Pep pg/mL Total Protein (6.0-8.3) g/dL Albumin (3.3-5.0) g/dL TSH (0.270-4.200) uIU/mL POC Troponin I (0.01-0.04) ng/ml 09/07/23 09/07/23 09/07/23 Range/Units 16:10 16:10 16:10 WBC (4.50-11.00) K/uL RBC (4.30-5.90) m/uL Hgb (13.5-17.5) gm/dL Hct (37.0-53.0) % MCV (80-100) fL MCH (26-34) pg MCHC (32-36) gm/dL RDW Coeff of Jennifer (11.5-15.5) % Plt Count (140-440) K/uL Neut % (Auto) (42.0-72.0) % Lymph % (Auto) (20-44) % Bailey % (Auto) (0.0-11.0) % Eos % (Auto) (0.0-7.0) % Baso % (Auto) (0.0-3.0) % Neut # (Auto) (1.7-7.0) K/uL Lymph # (Auto) (0.90-2.90) K/uL Bailey # (Auto) (0.00-0.90) K/UL Eos # (Auto) (0.00-0.50) K/uL Baso # (Auto) (0.00-0.30) K/uL Abs Immat Gran (auto) (0.00-0.30) K/uL Imm/Tot Granulo (auto) % D-Dimer Quant (PE/DVT) (0.00-0.50) ug/ml Sodium (135-149) mmol/L Potassium (3.6-5.1) mmol/L Chloride (96-114) mmol/L Carbon Dioxide (20-32) mmol/L Anion Gap 9 (7-15) mEq/L BUN 15 15 (7-30) mg/dL Creatinine 0.9 0.9 (0.5-1.5) mg/dL Estimated Creat Clear 82.78 Estimated GFR ml/min Glucose (60-115) mg/dL Lactate (0.5-1.9) mmol/L Calcium (8.4-10.6) mg/dL Total Bilirubin (0.1-1.5) mg/dL Direct Bilirubin (0.0-0.5) mg/dL AST (12-35) U/L ALT (4-50) U/L Alkaline Phosphatase (40-150) U/L C-Reactive Protein (0.5-1.0) mg/dL NT-Pro-B Natriuret Pep pg/mL Total Protein (6.0-8.3) g/dL Albumin (3.3-5.0) g/dL TSH (0.270-4.200) uIU/mL POC Troponin I (0.01-0.04) ng/ml 06/17/23 06/17/23 06/17/23 Range/Units 16:10 16:10 16:10 WBC (4.50-11.00) K/uL RBC (4.30-5.90) m/uL Hgb (13.5-17.5) gm/dL Hct (37.0-53.0) % MCV (80-100) fL MCH (26-34) pg MCHC (32-36) gm/dL RDW Coeff of Jennifer (11.5-15.5) % Plt Count (140-440) K/uL Neut % (Auto) (42.0-72.0) % Lymph % (Auto) (20-44) % Bailey % (Auto) (0.0-11.0) % Eos % (Auto) (0.0-7.0) % Baso % (Auto) (0.0-3.0) % Neut # (Auto) (1.7-7.0) K/uL Lymph # (Auto) (0.90-2.90) K/uL Bailey # (Auto) (0.00-0.90) K/UL Eos # (Auto) (0.00-0.50) K/uL Baso # (Auto) (0.00-0.30) K/uL Abs Immat Gran (auto) (0.00-0.30) K/uL Imm/Tot Granulo (auto) % D-Dimer Quant (PE/DVT) (0.00-0.50) ug/ml Sodium (135-149) mmol/L Potassium (3.6-5.1) mmol/L Chloride (96-114) mmol/L Carbon Dioxide (20-32) mmol/L Anion Gap (7-15) mEq/L BUN (7-30) mg/dL Creatinine (0.5-1.5) mg/dL Estimated Creat Clear 82.78 Estimated GFR 94 94 ml/min Glucose 94 95 (60-115) mg/dL Lactate 1.8 (0.5-1.9) mmol/L Calcium 9.5 (8.4-10.6) mg/dL Total Bilirubin (0.1-1.5) mg/dL Direct Bilirubin (0.0-0.5) mg/dL AST (12-35) U/L ALT (4-50) U/L Alkaline Phosphatase (40-150) U/L C-Reactive Protein (0.5-1.0) mg/dL NT-Pro-B Natriuret Pep pg/mL Total Protein (6.0-8.3) g/dL Albumin (3.3-5.0) g/dL TSH (0.270-4.200) uIU/mL POC Troponin I (0.01-0.04) ng/ml 06/17/23 06/17/23 Range/Units 16:10 18:00 WBC (4.50-11.00) K/uL RBC (4.30-5.90) m/uL Hgb (13.5-17.5) gm/dL Hct (37.0-53.0) % MCV (80-100) fL MCH (26-34) pg MCHC (32-36) gm/dL RDW Coeff of Jennifer (11.5-15.5) % Plt Count (140-440) K/uL Neut % (Auto) (42.0-72.0) % Lymph % (Auto) (20-44) % Bailey % (Auto) (0.0-11.0) % Eos % (Auto) (0.0-7.0) % Baso % (Auto) (0.0-3.0) % Neut # (Auto) (1.7-7.0) K/uL Lymph # (Auto) (0.90-2.90) K/uL Bailey # (Auto) (0.00-0.90) K/UL Eos # (Auto) (0.00-0.50) K/uL Baso # (Auto) (0.00-0.30) K/uL Abs Immat Gran (auto) (0.00-0.30) K/uL Imm/Tot Granulo (auto) % D-Dimer Quant (PE/DVT) (0.00-0.50) ug/ml Sodium (135-149) mmol/L Potassium (3.6-5.1) mmol/L Chloride (96-114) mmol/L Carbon Dioxide (20-32) mmol/L Anion Gap (7-15) mEq/L BUN (7-30) mg/dL Creatinine (0.5-1.5) mg/dL Estimated Creat Clear Estimated GFR ml/min Glucose (60-115) mg/dL Lactate (0.5-1.9) mmol/L Calcium 9.5 (8.4-10.6) mg/dL Total Bilirubin 0.5 (0.1-1.5) mg/dL Direct Bilirubin 0.1 (0.0-0.5) mg/dL AST 39 H (12-35) U/L ALT 29 (4-50) U/L Alkaline Phosphatase 46 (40-150) U/L C-Reactive Protein < 0.5 L (0.5-1.0) mg/dL NT-Pro-B Natriuret Pep 25 pg/mL Total Protein 7.0 (6.0-8.3) g/dL Albumin 4.2 (3.3-5.0) g/dL TSH 2.510 (0.270-4.200) uIU/mL POC Troponin I 0.00 L (0.01-0.04) ng/ml Discharge Plan Discharge Clinical Impression: Near syncope Patient Disposition: Home, Self-Care Condition: Improved Instructions: Near Syncope (ED) Additional Instructions: Follow-up with Dr. Soriano for a recheck in the next week or 2. Consider either/or longer-term ZIO patch or Neurology follow-up as discussed. Return for new or worsening symptoms. Prescriptions: No Action omeprazole 20 mg capsule,delayed release(DR/EC) 20 mg PO DAILY Eliquis 5 mg Tablet 5 mg PO BID rosuvastatin 5 mg tablet 5 mg PO DAILY Follow Up/Referrals: Kole Soriano MD [Primary Care Provider] - Stand Alone Forms: [employer] Info Instructions
== END 2023-06-17 18:52 | disposition home or self-care (01) ==
PROVIDERS: Emergency Provider Emergency Medicine; PCP Family Medicine
DX: R55 Syncope and collapse (principal)
CPT/HCPCS: 36415; 80048; 80076; 82565; 83605; 83880; 84443; 84484; 85025; 85379; 86140; 93005; 94761; 99284

== ENCOUNTER 2024-01-28 09:37 | Emergency (ER) | payer OTHER, SELFPAY ==
[2024-01-28] VITALS (16 sets, daily range): BP systolic 116–128; BP diastolic 73–87; PULSE 83–110; RESP 22; TEMP 37.1; O2SAT 96–100; BMI 23.6
--- NOTE | 2024-01-28 10:25 | ED_ITS ---
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 Symptoms began about 30 minutes prior to arrival. He says that his discomfort is gone but he still feels somewhat dizzy. Patient says he has been healthy and well lately. No recent symptoms. No recent trouble breathing, no recent chest pain. No recent cough. No fever. No swelling in his legs. He is still on Eliquis after having had his large DVT and PE a couple of years ago. He recently had a follow-up outpatient echocardiogram with his thrill performer and was told that his heart was ?normal. ?. Sounds like there was no significant valvular disease or any effect on his EF after his saddle PE. He does not have any history of known coronary artery disease. He was at his computer doing some work this morning when suddenly he felt some discomfort in his left arm from the elbow down to the hand. In addition to having an odd pain there he felt like he could not move it or control at properly. After that he felt a wave of some shortness of breath, dizziness and felt his heart start to race. He was not really having chest pain but just a discomfort in his arm and maybe a little discomfort in his chest. He called his in immediately came here to the ER. Around the time he got here his arm went back to normal. He was still feeling a bit dizzy at the time of triage but as I am talking to him he actually says he is feeling better. Heart rate has come back down to normal and he says his symptoms are gone. Related Data Home Medications Medication Instructions Recorded Confirmed omeprazole 20 mg capsule,delayed 20 mg PO DAILY 10/08/22 06/17/23 release apixaban 5 mg tablet (Eliquis) 5 mg PO BID 10/30/22 06/17/23 rosuvastatin 5 mg tablet 5 mg PO DAILY 06/17/23 06/17/23 Allergies Allergy/AdvReac Type Severity Reaction Status Date / Time No Known Drug Allergies Allergy Verified 06/17/23 16:17 [facility] Medical History DVT (deep venous thrombosis) ?I82.409 - Acute embolism and thrombosis of unspecified deep veins of unspecified lower extremity (ICD-10) Surgical History History of colonoscopy ?Z98.890 - Other specified postprocedural states (ICD-10) H/O: hemorrhoidectomy ?Z98.890 - Other specified postprocedural states (ICD-10) Social History Narrative: Lives with in [place]. 2 adult children. 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 PCP: Bo Highest level of school completed/degree received: Doctoral degree Smoking Status: Former smoker Do you use any of these nicotine containing products: None How often do you have a drink containing alcohol: 4 or more times a week Alcohol type: wine How many standard drinks containing alcohol do you have on a typical day: 1 or 2 How often do you have six or more drinks on one occasion: Never AUDIT-C Alcohol total score: 4 Non-prescribed substance use: denies use Caffeine: Yes (coffee) service: No Exam Narrative: Exam Narrative: Constitutional: Appears well-developed and well-nourished. Alert. Initially appears somewhat anxious but subsequently much calmer. and patient are working to get the to provide history and are very detailed historians per. Non toxic. HENT: Head: Atraumatic. Nose: Nose normal. Mouth/Throat: Oral mucosa is clear and moist. no trismus. Pharynx normal. Tonsils symmetric. No tonsillar enlargement, erythema, or exudate. Eyes: Conjunctivae normal. EOM normal. Pupils equal, round, and reactive to light. No scleral icterus. Neck: Normal range of motion. Neck supple. No tracheal deviation present. No JVD Cardiovascular: Normal rate, regular rhythm. No gallop. No friction rub. No murmur heard. Symmetric radial and DP artery pulses Pulmonary/Chest: Effort normal. No stridor. No respiratory distress. No wheezes. No rales. No rhonchi . No tenderness. Abdominal: Soft. Bowel sounds normal. No distension. No mass. No tenderness. No rebound. No guarding. Musculoskeletal: RUE: Normal range of motion. No tenderness. No deformity LUE: Normal range of motion. No tenderness. No deformity RLE: Normal range of motion. No edema. No tenderness. No deformity LLE: Normal range of motion. No edema. No tenderness. No deformity Lymph: No cervical adenopathy. Neurological: Mental status normal. Attention normal. Alert and oriented x3. GCS 15. Memory normal. Speech fluent. Cognition normal. Cranial Nerves intact II-XII except I did not formally test gag or visual acuity. EOMI. Palate elevates symmetrically and tongue protrudes in the midline. Strength: 5/5 trapezius on the right and left 5/5 deltoid on the right and left 5/5 biceps on the right and left 5/5 triceps on the right and left 5/5 assistant women's soccer coach on the right and left 5/5 thumb opposition on the right and le ft 5/5 finger abduction on the right and le ft 5/5 hip flexors (L3) on the right and le ft 5/5 quadriceps (L4) on the right and lef t 5/5 tibialis anterior on the right and l eft 5/5 EHL (L5) on the right and left 5/5 gastrocnemius (S1) on the right and left 5/5 hamstring on the right and left Sensation intact to light touch in both upper extremities (C4-T1) Sensation intact to light touch in Both lower extremities (L4-S1). Finger to nose and coordination normal Skin: Skin is warm and dry. No rash noted. No pallor. Normal capillary refill. Psychiatric: Normal mood. Normal affect. Const: Vital Signs, click to edit/add: Vital Signs - 24 hr 01/28/24 09:49 01/28/24 10:29 01/28/24 10:30 Temperature 98.8 F Pulse Rate 99 96 Pulse Rate [Pulse Oximeter] 110 H Respiratory Rate 22 Blood Pressure Blood Pressure [Le ft Upper Arm] 128/82 Pulse Oximetry 100 99 98 Oxygen Delivery Me thod Room Air 01/28/24 10:31 01/28/24 10:32 01/28/24 11:00 Temperature Pulse Rate 96 92 92 Pulse Rate [Pulse Oximeter] Respiratory Rate Blood Pressure 125/87 Blood Pressure [Le ft Upper Arm] Pulse Oximetry 98 99 96 Oxygen Delivery Me thod 01/28/24 11:02 01/28/24 12:04 01/28/24 12:05 Temperature Pulse Rate 91 86 85 Pulse Rate [Pulse Oximeter] Respiratory Rate Blood Pressure 120/77 116/77 Blood Pressure [Le ft Upper Arm] Pulse Oximetry 96 97 97 Oxygen Delivery Me thod 01/28/24 12:22 01/28/24 12:23 01/28/24 12:30 Temperature Pulse Rate 88 86 84 Pulse Rate [Pulse Oximeter] Respiratory Rate Blood Pressure 118/73 Blood Pressure [Le ft Upper Arm] Pulse Oximetry 99 99 98 Oxygen Delivery Me thod 01/28/24 12:42 01/28/24 13:00 01/28/24 13:02 Temperature Pulse Rate 83 87 92 Pulse Rate [Pulse Oximeter] Respiratory Rate Blood Pressure 123/76 125/86 Blood Pressure [Le ft Upper Arm] Pulse Oximetry 98 98 98 Oxygen Delivery Me thod 01/28/24 13:22 Temperature Pulse Rate 90 Pulse Rate [Pulse Oximeter] Respiratory Rate Blood Pressure 127/84 Blood Pressure [Le ft Upper Arm] Pulse Oximetry 98 Oxygen Delivery Me thod Course Course ED Course: Patient evaluated in ER room 8. He was currently asymptomatic at the time of evaluation. Discuss with Stroke Neurology, Dr. Guzman throughout the [place]. She feels that TIA would be less likely. Although he had some numbness and incoordination of the hand spread dominant symptom was pain which is not typical for TIA. She would request that we get MRI as well as CT scan. Reevaluation(s) Reevaluation #1: We discussed again with Stroke Neurology. She agrees the patient would be appropriate for discharge. He should remain on his Eliquis for now but no other anticoagulants or antiplatelets. She feels low likelihood to represent true TIA. Vital Signs Vital signs: Initial Vital Signs Temperature 98.8 F 01/28/24 09:49 Temperature Source Temporal Artery Scan 01/28/24 09:49 Pulse Rate 110 H 01/28/24 09:49 Respiratory Rate 22 01/28/24 09:49 Blood Pressure 128/82 01/28/24 09:49 Blood Pressure Mean 97 01/28/24 09:49 Pulse Oximetry 100 01/28/24 09:49 Oxygen Delivery Method Room Air 01/28/24 09:49 Vital Signs Temperature 98.8 F 01/28/24 09:49 Pulse Rate 110 H 01/28/24 09:49 Respiratory Rate 22 01/28/24 09:49 Blood Pressure 128/82 01/28/24 09:49 Pulse Oximetry 100 01/28/24 09:49 Oxygen Delivery Method Room Air 01/28/24 09:49 Temperature 98.8 F 01/28/24 09:49 Pulse Rate 90 01/28/24 13:22 Respiratory Rate 22 01/28/24 09:49 Blood Pressure 127/84 01/28/24 13:22 Pulse Oximetry 98 01/28/24 13:22 Oxygen Delivery Method Room Air 01/28/24 09:49 Medications Administered Medications: Discontinued Medications Generic Name Dose Route Start Last Admin Trade Name Richardq PRN Reason Stop Dose Admin Aspirin 162 mg 01/28/24 10:46 01/28/24 10:53 Aspirin 81 Mg Tab.Chew PO 01/28/24 10:47 162 mg ONCE ONE Administration Medical Decision Making [facility] Narrative Medical decision making narrative: This patient presents to the ER today for evaluation of sudden onset of left forearm and hand discomfort, tingling, and in coordination followed by abrupt onset of generalized fatigue, dizziness, and a warm feeling throughout his body. No actual chest pain or back pain. No associated headache or neck pain.. Differential was broad. He also reports occasional episodes where he gets dizzy and hot off and on for the past year or 2 since he suffered a saddle pulmonary embolism and large DVT. He and his suspect that these previous episodes might have been panic attacks. Differential for today's episode is broad. Consider possible arrhythmia, but no palpitations, syncope or other cardiac dysrhythmia noted on EKG or environmental monitoring specialist here in the ER. We considered possible atypical presentation of ACS, however workup with EKG and delta troponins is negative. Given time since onset of symptoms, I do not think the patient needs to be admitted for further sets of enzymes. EKG shows no evidence for pericarditis. Clinical presentation not suggestive of myocarditis. Chest x-ray shows no evidence for pneumonia, pneumothorax, pulmonary edema, pleural effusion, rib fracture, cardiomegaly. Mediastinum is normal on the x-ray. The patient has no ripping or tearing pain through to the back and has symmetric pulses on exam, no other acute neuro findings so I doubt aortic dissection. Risk of radiation and contrast exposure would outweigh the benefit of CT angiogram. We considered PE for this patient. He is currently anticoagulated on Eliquis. D-dimer is quite low. No lower extremity swelling or other signs of DVT No wheezing or bronchospasm to suggest COPD/asthma. No signs of arm DVT, cellulitis, shingles, arm injury. Consider possible TIA as a cause for his abrupt onset of left arm pain, numbness, incoordination. Symptoms really isolated to the left forearm from the elbow down to the hand He was not having any ongoing neurologic symptoms to suggest stroke. We did obtain head CT scan which is normal and brain MRI which is also normal showing no sign of acute stroke. Discussed possible TIA with stroke neurologist from [place]. They do not think symptoms would represent TIA. They agree of plan that he can discharge home, continue on Eliquis and monitor. Patient is counseled that if he has any cook further episodes of numbness or weakness in his arm (or other parts of his body) he should return to the ER immediately. No associated neck pain to suggest cervical artery dissection, cervical disc herniation or radiculopathy. No associated chest pain or back pain and no signs of malperfusion to the left upper extra to suggest vascular dissection or occlusion. He was not lifting his arms up or doing any physical activity that would indicate the presence of thoracic outlet syndrome. With reasonable clinical confidence, I think the patient is safe for outpatient follow up. Discussed return precautions. Questions answered. Patient voices comfort with the plan. Lab Data Labs: Lab Results 01/28/24 01/28/24 Range/Units 09:50 12:37 WBC 6.79 (4.50-11.00) K/uL RBC 4.78 (4.30-5.90) m/uL Hgb 14.6 (13.5-17.5) gm/dL Hct 44.8 (37.0-53.0) % MCV 94 (80-100) fL MCH 31 (26-34) pg MCHC 33 (32-36) gm/dL RDW Coeff of Jennifer 13.9 (11.5-15.5) % Plt Count 308 (140-440) K/uL Neut % (Auto) 45.0 (42.0-72.0) % Lymph % (Auto) 37.8 (20-44) % [place] % (Auto) 11.6 H (0.0-11.0) % Eos % (Auto) 4.9 (0.0-7.0) % Baso % (Auto) 0.6 (0.0-3.0) % Neut # (Auto) 3.05 (1.7-7.0) K/uL Lymph # (Auto) 2.57 (0.90-2.90) K/uL [place] # (Auto) 0.80 (0.00-0.90) K/UL Eos # (Auto) 0.33 (0.00-0.50) K/uL Baso # (Auto) 0.04 (0.00-0.30) K/uL Abs Immat Gran (auto) 0.01 (0.00-0.30) K/uL Imm/Tot Granulo (auto) 0.1 % D-Dimer Quant (PE/DVT) 0.26 (0.00-0.50) ug/ml Sodium 138 (135-149) mmol/L Potassium 3.6 (3.6-5.1) mmol/L Chloride 107 (96-114) mmol/L Carbon Dioxide 26 (20-32) mmol/L Anion Gap 5 L (7-15) mEq/L BUN 18 (7-30) mg/dL Creatinine 0.9 (0.5-1.5) mg/dL Estimated Creat Clear 64.69 Estimated GFR 94 ml/min Glucose 97 (60-115) mg/dL Calcium 9.7 (8.4-10.6) mg/dL Troponin I < 0.01 L < 0.01 L (0.01-0.04) ng/mL Imaging Data MRI Brain: Attestation: I have reviewed the pertinent imaging results. Radiologist's impression: Impression: 1. No evidence of acute intracranial abnormality. 2. 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 CT scan - head: Attestation: I have reviewed the pertinent imaging results. Radiologist's impression: Impression: 1. No acute intracranial abnormality. 2. Chronic infarct in the left posterior cerebellum. 3. Polypoid 1.4 cm structure in the superior aspect of the right nasal cavity likely represents a nasal polyp. Chest x-ray: Attestation: I have reviewed the pertinent imaging results. Radiologist's impression: IMPRESSION: No acute cardiopulmonary process. ECG Data Attestation: I personally reviewed and interpreted this ECG as follows: Interpretation: Sinus tachycardia. Rate 109 MO: 166 QRS axis: Incomplete right bundle branch block. Normal axis ST segment/T wave: No ST segment elevation or depression QTc: 474 Discharge Plan Discharge Clinical Impression: Arm numbness left Patient Disposition: Home, Self-Care Condition: Stable Instructions: Chest Pain (DC), Paresthesia (ED) Additional Instructions: As we discussed, so far your workup looks reassuring. However the exact cause of your symptoms is not clear. This could have been a temporary cardiac arrhythmia, or this could have been a transient ischemic attack. At this point we do not see any signs of any to blood clots in your lungs, or any sign of a heart attack. Monitor your symptoms carefully and if you have any more episodes of numbness or weakness of your arm, any episodes of trouble breathing or dizziness or chest pain, come back to the ER right away to be rechecked. Please follow-up with your regular doctor for recheck within the week. Remember, if you have any problems come back to the ER right away. Prescriptions: No Action omeprazole 20 mg capsule,delayed release(DR/EC) 20 mg PO DAILY Eliquis 5 mg Tablet 5 mg PO BID rosuvastatin 5 mg tablet 5 mg PO DAILY Follow Up/Referrals: Kole Soriano MD [Primary Care Provider] - Stand Alone Forms: [employer] Info Instructions
--- NOTE | 2024-01-28 10:46 | XR_ITS ---
Patient: INGRIS LUNDY Facility:?[facility] Patient ID:?[id number] Site Patient ID:?[id number]. Site :?1955 Study:?XRay-Chest 2 VIEW-01/28/2024 11:26:04 AM Ordering Physician:?DR. BARR Final Report: INDICATION: Chest pain. TECHNIQUE: Chest radiographs, 2 views. COMPARISON: Chest radiographs 10/30/2022. FINDINGS: Cardiovascular/Mediastinum: Normal heart size. Unremarkable. Lungs: No focal consolidation. Airways: Trachea remains midline. Pleura: No pleural effusions or pneumothorax. Bones: No acute osseous abnormalities. Upper abdomen: Unremarkable. IMPRESSION: No acute cardiopulmonary process. Dictated by Germain Way MD @ 01/28/2024 12:11:13 PM Signed by:?Germain Way MD @01/28/2024 12:11:13 PM (Electronic Signature)
--- NOTE | 2024-01-28 10:46 | CT_ITS ---
Patient: INGRIS LUNDY Facility:?[facility] Patient ID:?[id number] Site Patient ID:?[id number]. Site :?1955 Study:?CT-Head WITHOUT-01/28/2024 11:25:10 AM Ordering Physician:?DR. BARR Final Report: Indication: TRANSIENT LEFT ARM NUMBNESS AND WEAKNESS Technique: CT of the head without contrast. Coronal and sagittal reformats. Bone and soft tissue windows. Comparison: CT 10/10/2022 Findings: No acute intracranial hemorrhage or extra-axial collection. No evidence of acute cortical infarction. No mass effect or midline shift. Normal cerebral volume. The ventricles are normal in size, shape and contour. There is normal patel and white matter differentiation. Small chronic ischemic infarct in the left posterior cerebellum. The orbital contents are normal. No calvarial fractures. No lytic or sclerotic osseous lesions within the calvarium or skull base. Scalp and other imaged soft tissue structures are normal. Minimal mucosal thickening in the left maxillary sinus and left sphenoid sinus. Polypoid 1.4 x 1.2 cm structure in the superior aspect of the right nasal cavity likely represents a nasal polyp. Mild mucosal thickening in the frontal sinuses. The mastoid air cells are clear. Impression: 1. No acute intracranial abnormality. 2. Chronic infarct in the left posterior cerebellum. 3. Polypoid 1.4 cm structure in the superior aspect of the right nasal cavity likely represents a nasal polyp. Please note that all CT scans at this facility use dose modulation, iterative reconstruction, and/or weight-based dosing when appropriate to reduce radiation dose to as low as reasonably achievable. Dictated by Franky Gabriel MD @ 01/28/2024 12:06:06 PM Signed by:?Franky Gabriel MD @01/28/2024 12:06:06 PM (Electronic Signature)
[2024-01-28] MEDS: ASPIRIN 81 MG TAB.CHEW 162 MG PO (10:53)
[2024-01-28 10:57] LABS: Basophils Absolute Auto 0.04 K/uL (0.00-0.30); Basophils Percent Auto 0.6 % (0.0-3.0); Eosinophils Absolute Auto 0.33 K/uL (0.00-0.50); Eosinophils Percent Auto 4.9 % (0.0-7.0); Hematocrit 44.8 % (37.0-53.0); Hemoglobin* 14.6 gm/dL (13.5-17.5); Immature Granulocytes Abs Auto 0.01 K/uL (0.00-0.30); Immature Granulocytes Pct Auto 0.1 %; Lymphocytes Absolute Auto 2.57 K/uL (0.90-2.90); Lymphocytes Percent Auto 37.8 % (20-44); Mean Corpuscular HGB Conc 33 gm/dL (32-36); Mean Corpuscular Hemoglobin 31 pg (26-34); Mean Corpuscular Volume 94 fL (80-100); Monocytes Percent Auto 11.6 % (0.0-11.0); Neutrophils Absolute Auto 3.05 K/uL (1.7-7.0); Platelet Count* 308 K/uL (140-440); RDW Coefficient of Variation % 13.9 % (11.5-15.5); Red Blood Count 4.78 m/uL (4.30-5.90); White Blood Count* 6.79 K/uL (4.50-11.00)
[2024-01-28 10:59] LABS: Slide Review Reflex No
[2024-01-28 11:09] LABS: Chloride* 107 mmol/L (96-114); Potassium* 3.6 mmol/L (3.6-5.1); Sodium* 138 mmol/L (135-149)
[2024-01-28 11:12] LABS: Anion Gap 5 mEq/L (7-15); Blood Urea Nitrogen* 18 mg/dL (7-30); Carbon Dioxide* 26 mmol/L (20-32); Creatinine* 0.9 mg/dL (0.5-1.5); Est. Creatinine Clearance* 64.69; Estimated Glomerular Filt Rate 94 ml/min
[2024-01-28 11:13] LABS: Calcium* 9.7 mg/dL (8.4-10.6); Glucose* 97 mg/dL (60-115)
--- NOTE | 2024-01-28 11:15 | MR_ITS ---
Patient: INGRIS LUNDY Facility:?[facility] Patient ID:?[id number] Site Patient ID:?[id number]. Site :?1955 Study:?MRI-Head W/O-01/28/2024 11:49:56 AM Ordering Physician:?ARNALDO KAY Final Report: Indication: Acute left arm numbness. Technique: Noncontrast sagittal T1 weighted, axial FLAIR, axial T2 weighted, and axial diffusion weighted sequences are provided. 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 Few punctate foci of T2 prolongation in the left frontal lobe are nonspecific but likely representing chronic small vessel disease. The ventricles, sulci and gyri are normal size, shape and contour for age. The midline structures are centrally located with no evidence of shift. There are no suspicious intra or extra-axial fluid collections. No pathologic susceptibility artifacts. No region of restricted diffusion. Expected flow voids in the cavernous carotids and basilar artery. Impression: 1. No evidence of acute intracranial abnormality. 2. 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 Dictated by Franky Gabriel MD @ 01/28/2024 11:56:44 AM Signed by:?Franky Gabriel MD @01/28/2024 11:56:44 AM (Electronic Signature)
[2024-01-28 11:30] LABS: Troponin I* < 0.01 ng/mL (0.01-0.04)
--- OUTSIDE RECORDS SUMMARY | 2024-01-28 11:59 | XMS_ITS | Clinical Summary ---
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 Medications Medication Sig Dispensed Refills Start Date End Date Status cholecalciferol (VITAMIN D) 1,000 unit tablet Take 1 tablet by mouth 2 times daily. 0 07/12/2014 Active esomeprazole (NexIUM) 20 mg capsule Take 1 Capsule (20 mg) by mouth once daily before a meal. 0 11/25/2022 Active famotidine (Pepcid) 20 mg tablet Take 1 Tablet (20 mg) by mouth once daily if needed for GI Upset. 0 12/22/2022 Active esomeprazole mag-glycerin 20 mg kcspIndications:Gastr oesophageal reflux disease, unspecified whether esophagitis present Take by mouth. 90 Each 3 01/12/2023 Active rosuvastatin (CRESTOR) 5 mg tabletIndications:Pul monary embolism, bilateral (HC) Take 1 Tablet (5 mg) by mouth at bedtime. 90 Tablet 1 06/04/2023 Active escitalopram oxalate (LEXAPRO) 5 mg tabletIndications:Anx iety 1/2 tab oral daily for 6 days, then one daily. 30 Tablet 1 07/14/2023 Active Eliquis 5 mg tabletIndications:Pul monary embolism, bilateral (HC) TAKE ONE TABLET BY MOUTH TWICE A DAY 180 Tablet 3 10/07/2023 Active LORazepam (ATIVAN) 0.5 mg tabIndications:Anxiet y TAKE ONE TABLET BY MOUTH TWICE DAILY NEEDED 20 Tablet 11/17/2023 Active Active Problems Problem Noted Date Diagnosed Date Nonspecific paroxysmal spell 07/14/2023 Pulmonary embolism, bilateral (HC) 10/08/2022. t PA. 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 08/2020. 10/12/2022 GERD (gastroesophageal reflux disease) 3 Overview: EGD 04/2013 gastritis, H. Pylori negative Mixed hyperlipidemia 12/22/2012 Resolved Problems Problem Noted Date Diagnosed Date Resolved Date Left leg DVT (HC) 08/2020. E liquis for 6 months. 08/13/2022 Overview: Provoked after drive to [place]. Eliquis. Encounters Date Type Department Care Team Description 01/07/2024 9:00 AM CDT Ancillary Procedure [facility] [address] [place] [id number] 01/07/[address] Curtis [address] [place] [id number] Maxwell Smith MD Results (Echo ) 01/07/2024 Travel 11/15/2023 Refill [facility] [address] [place] [address] Adams Charlton MD Refill Request (Esomeprazole) 11/15/2023 Orders Only [facility] Scanner 1 scan: (1-Ord) INCOMING RECORDS-LABS, [facility] and [facility]UMATOLOG[facility], 11/15/2023 from Last 3 Months Immunizations Name Administration Dates Next Due COVID-19 vaccine (Pfizer-Bio NTech 30mcg/0.3mL) 12YO+ BIVALENT PF MDV 02/22/2023,07/03/2022 COVID-19 vaccine (Pfizer-Bio NTech 30mcg/0.3mL) 12YO+ HA-SUCROSE PF MDV 04/23/2022 COVID-19 vaccine (Pfizer-Bio NTech 30mcg/0.3mL) PF MDV 08/13/2021,01/28/2021,01/05/2021 Influenza, IIV4 06/21/2020, 9,09/15/2018,2013 Influenza, Inactivated AIIV4 (Age 65+ Years) Preserv Free 07/14/2022,07/03/2021 Pneumococcal Poly,23-Valent (Pneumovax) 07/03/2021 Tdap 09/28/2016,01/06/2013 Zoster (Shingrix-RZV, recombinant) 12/23/2018, Family History Medical History Relation Name Comments Heart Disease Father cabg Arthritis Mother Arthritis Sister Relation Name Status Comments Father Mother Sister Social History Tobacco Use Types Packs/Day Years Used Date Smoking Tobacco: Former Cigarettes Q uit: 10/11/1989 Smokeless Tobacco: Never Tobacco Cessation:Counseling Given: No Alcohol Use Standard Drinks/Week Comments Yes 15 (1 standard drink = 0.6 oz pu re alcohol) 1 - 2 glasses wine daily PHQ-2 Answer Date Recorded PHQ-2 TOTAL SCORE 0 07/14/2023 Social Connections Answer Date Recorded Frequency of Communication with Friends and Fami ly Not on file 10/13/2023 Financial Resource Strain Answer Date R ecorded Difficulty of Paying Living Expenses 3 10/12/2022 Difficulty of Paying Living Expenses Not on file 10/12/2022 Food Insecurity Answer Date Recorded Worried About Running Out of Food in the Last Ye ar 1 10/12/2022 Transportation Needs Answer Date Record ed Lack of Transportation (Medical) 1 10/12/2022 Housing Stability Answer Date Recorded Unable to Pay for Housing in the Last Year 1 10/12/2022 Sex and Gender Information Value Date Recorded Sex Assigned at Male 11/19/2020 9:45 AM INTERPRETER DEAF Gender Identity Male 11/19/2020 9:45 AM INTERPRETER DEAF Sexual Orientation Not on file Obstetrics History Last Filed Vital Signs Vital Sign Reading Time Taken Comments Blood Pressure 115/75 07/14/2023 1:16 PM CDT Pulse 82 07/14/2023 1:16 PM CDT Temperature 36.6 ??C (97.8 ??F) 12/22/2022 10:27 AM C DT Respiratory Rate 20 12/22/2022 10:27 AM CDT Oxygen Saturation 99% 07/14/2023 1:16 PM CDT Inhaled Oxygen Concentration - - Weight 70.6 kg (155 lb 9.6 oz) 07/14/2023 1:16 P M CDT Height 172.1 cm (5' 7.75) 12/22/2022 10:27 AM C DT Body Mass Index 23.83 12/22/2022 10:27 AM CDT Plan of Treatment Upcoming Encounters Date Type Department Care Team (Late st Contact Info) Description 02/22/2024 2:45 PM CDT Office Visit [facility] [address] [place] [address] Jc Damon DPM [address] [place] [address] Health Maintenance Due Date Last Done Comments AAA screening age 65-74 2021 Fecal testing non-DNA (FIT,FOBT,iFOBT) for age 45-75 06/18/2021 06/18/2020, 12/19/2017, 08/11/2015 Pneumococcal series for age 65+ (2 of 2 - PCV) 07/03/2022 07/03/2021 BMI (ht and wt on same day) for age 18+ 12/23/2023 12/22/2022, 11/27/2022, 10/14/2022, Additional history exists Influenza for age 65+ 06/11/2024 07/14/2022 , 07/03/2021, 06/21/2020, Additional history exists Depression screening for age 12+ 07/14/2024 07/14/2023, 07/14/2023, 07/03/2021, Additional history exists Tetanus booster 09/28/2026 09/28/2016, 01/06/2013 Lipids for age 45-75 04/29/2028 04/29/2023, 04/03/2021, 06/03/2020, Additional history exists Tdap Completed 09/28/2016, 01/06/2013 Zoster (shingles) series for age 50+ Completed 12/23/2018, 05/11/2018 Hepatitis C screening for ag e 18-79 Completed 04/29/2023 COVID-19 vaccine series Completed 07/05/20, 02/22/2023, 07/03/2022, Additional history exists Procedures Procedure Name Priority Date/Time Associated Diagnosis Comments ECHO TTE COMPLETE WO CONTRAST Routine 01/07/2024 9:53 AM CDT Pulmonary embolism, bilateral (HC) SCAN CORRESP-LABORATORY RESULTS 11/15/2023 12:00 AM INTERPRETER DEAF LC HCV ANTIBODY RFX TO QUANT PCR Routine 04/29/2023 12:39 PM CDT Need for hepatitis C screening test LIPID PANEL W REFLEX MEASURED LDL Routine 04/29/2023 12:39 PM CDT Hyperlipidemia, unspecified hyperlipidemia type OCCULT BLOOD IFOBT STOOL Routine 06/18/2020 7:40 AM CDT Screening for colon cancer from Last 3 Months or Most Recently Relevant to Health Maintenance Results * ECHO TTE COMPLETE WO CONTRAST (01/07/2024 9:53 AM CDT) AORTIC VALVE MEAN PG 3 mmHg EJECTION FRACTION 63 % LVEDD 4.4 cm Anatomical Region Laterality Modality Ultrasound 01/07/2024 9:09 AM CDT Narrative 01/07/2024 10:14 AM CDT ECHOCARDIOGRAM TC LUNDY ? Accession#: ?? [id number] : ?1955 68 years Study Date: ?? 01/07/2024 9:09:56 AM Gender: M ?BP: ? 117/84 mmHg Height: 170.00 cm ?BSA: ?1.81 m? ? ? Weight: 70.00 kg ? Tech: ? MSR ? Referring MD: MAXWELL SMITH Site: ? [facility] Reading Location: Mobile OP Patient Location: Outpatient. Procedure: 2D, Color Doppler and Spectral Doppler. Indication for study: Pulmonary embolism, bilateral Cardiac Rhythm: Regular.Study quality: Fair. Final Impressions: 1. Normal left ventricular size, normal wall thickness, normal global systolic function, calculated EF of 63 %. 2. Right ventricular cavity size is normal, global systolic RV function is normal. 3. The aortic valve is normal, no stenosis and trivial regurgitation. 4. The mitral valve is normal, trace mitral regurgitation. 5. Tricuspid valve is normal. 6. The aortic sinus is dilated with a maximal diameter of 3.8 cm. 7. No pericardial effusion. Chamber Sizes and Function Normal left ventricular size, normal wall thickness, normal global systolic function, calculated EF of 63 %. Left atrial size is normal. Right ventricular cavity size is normal, global systolic RV function is normal. RV wall thickness is normal. The right atrium is normal. The pulmonary artery is of normal size and origin. The sinus of Valsalva is dilated. The ascending aorta is normal sized. Valves, RV Pressures and Diastolic Function The aortic valve is normal in structure, no stenosis and trivial regurgitation. The mitral valve is normal in structure, trace mitral regurgitation. Normal diastolic function. The tricuspid valve is normal in structure. Tricuspid regurgitation is mild regurgitation. The pulmonic valve is normal. Trace pulmonary regurgitation. Masses, Effusion, Shunts There is no pericardial effusion. The inferior vena cava is normal sized, respiratory size variation greater than 50%. Interatrial septum is not well visualized. MEASUREMENTS AND CALCULATIONS 2-D Measurements and LV Function: LVID (d) 4.4 cm Planimetered EF 63 % LVID (s) 2.6 cm LV FS% (2D) ? 40 % IVS (d) ??0.9 cm LVOT diameter ?? 2.2 cm LVPW (d) 0.8 cm HR ?78 bpm Ao Sinus 3.8 cm LA Vol index ?20 ml/m2 Asc Ao ?? 3.6 cm RV Max 4C (d) ?? 4.2 cm Diastology: Mitral ?Tissue Doppler E Peak 0.6 m/s ??e', Septum ? 0.09 m/s A Peak 0.6 m/s ??e', Lateral ?0.11 m/s E/A ?1.0 ?E/e' Average ?? 6.36 DT ? 209 msec Aortic Valve: Vmax ? 1.1 m/s ??SOUMYA (V) ?? 3.44 cm? ? ? VTI ?0.22 m ?? SOUMYA (I) ?? 3.22 cm? ? ? LVOT V max 1.0 m/s ??Max PG ?4 mmHg LVOT VTI ?? 0.18 m ?? Mean PG ?? 3 mmHg SV ? 70 ml ?Dim Index 0.85 SV index ?? 38 ml/m? ? ? CO ?5.4 l/min ?CI ?3.0 l/min/m? ? ? Mitral Valve: MVA ?3.6 cm? ? ? MV P 1/2 61 msec Tricuspid Valve and estimated PA pressures: TAPSE 2.1 cm . This study was interpreted by an [facility] accredited facility. ??Final ?? Procedure Note Ashanti Verdugo, [facility] - 01/07/2024 ECHOCARDIOGRAM JACOB LUNDY : 1955 68 years Study Date: 01/07/2024 9:09:56 AM Gender: M BP: 117/84 mmHg Height: 170.00 cm BSA: 1.81 m? ? ? Weight: 70.00 kg Tech: MSR Referring MD: MAXWELL SMITH Site: [facility] Reading Location: Mobile OP Patient Location: Outpatient. Procedure: 2D, Color Doppler and Spectral Doppler. Indication for study: Pulmonary embolism, bilateral Cardiac Rhythm: Regular.Study quality: Fair. Final Impressions: 1. Normal left ventricular size, normal wall thickness, normal globalsystolic function, calculated EF of 63 %. 2. Right ventricular cavity size is normal, global systolic RV functionis normal. 3. The aortic valve is normal, no stenosis and trivial regurgitation. 4. The mitral valve is normal, trace mitral regurgitation. 5. Tricuspid valve is normal. 6. The aortic sinus is dilated with a maximal diameter of 3.8 cm. 7. No pericardial effusion. Chamber Sizes and Function Normal left ventricular size, normal wall thickness, normal globalsystolic function, calculated EF of 63 %. Left atrial size is normal.Right ventricular cavity size is normal, global systolic RV function isnormal. RV wall thickness is normal. The right atrium is normal. Thepulmonary artery is of normal size and origin. The sinus of Valsalva isdilated. The ascending aorta is normal sized. Valves, RV Pressures and Diastolic Function The aortic valve is normal in structure, no stenosis and trivialregurgitation. The mitral valve is normal in structure, trace mitralregurgitation. Normal diastolic function. The tricuspid valve is normal instructure. Tricuspid regurgitation is mild regurgitation. The pulmonicvalve is normal. Trace pulmonary regurgitation. Masses, Effusion, Shunts There is no pericardial effusion. The inferior vena cava is normal sized,respiratory size variation greater than 50%. Interatrial septum is notwell visualized. MEASUREMENTS AND CALCULATIONS 2-D Measurements and LV Function: LVID (d) 4.4 cm Planimetered EF 63 % LVID (s) 2.6 cm LV FS% (2D) 40 % IVS (d) 0.9 cm LVOT diameter 2.2 cm LVPW (d) 0.8 cm HR 78 bpm Ao Sinus 3.8 cm LA Vol index 20 ml/m2 Asc Ao 3.6 cm RV Max 4C (d) 4.2 cm Diastology: Mitral Tissue Doppler E Peak 0.6 m/s e', Septum 0.09 m/s A Peak 0.6 m/s e', Lateral 0.11 m/s E/A 1.0 E/e' Average 6.36 DT 209 msec Aortic Valve: Vmax 1.1 m/s SOUMYA (V) 3.44 cm? ? ? VTI 0.22 m SOUMYA (I) 3.22 cm? ? ? LVOT V max 1.0 m/s Max PG 4 mmHg LVOT VTI 0.18 m Mean PG 3 mmHg SV 70 ml Dim Index 0.85 SV index 38 ml/m? ? ? CO 5.4 l/min CI 3.0 l/min/m? ? ? Mitral Valve: MVA 3.6 cm? ? ? MV P 1/2 61 msec Tricuspid Valve and estimated PA pressures: TAPSE 2.1 cm . This study was interpreted by an [facility] accredited facility. Final Maxwell Smith MD ECHO ORD * SCAN CORRESP-LABORATORY RESULTS (11/15/2023 12:00 AM INTERPRETER DEAF) Scanner OTHER * LC HCV ANTIBODY RFX TO QUANT PCR (04/29/2023 12:39 PM CDT) [facility] HCV Ab Non Reactive Non Reactive 05/01/2023 12:07 PM CDT [facility] Blood BLOOD SPECIMEN / Unknown Venipuncture / Unknown 04/29/2023 12:39 PM CDT 04/29/2023 12:43 PM CDT Narrative [facility] - 05/01/2023 12:07 PM CDT Performed at: ??[address] ??[id number] Product Support Sales Representative: Keven Mcmahan MD, Phone: ??[phone] Kole Soriano MD LABORATORY [facility]) [address] [place], [place] [address] * LIPID PANEL W REFLEX MEASURED LDL (04/29/2023 12:39 PM CDT) [facility] CHOLESTEROL,TOTAL 146 100 - 199 mg/dL 04/30/2023 2:16 AM CDT [facility] TRAL LABORATORY Comment: Cholesterol, Total Reference Ranges Desirable <200 mg/dL Borderline 200-239 mg/dL High >=240 mg/dL TRIGLYCERIDES 148 <150 mg/dL 04/30/2023 2:16 AM CDT [facility] HDL CHOLESTEROL 49 >40 mg/dL 2:16 AM CDT [facility] NON-HDL CHOLESTEROL 97 <145 mg/dl 04/30/2023 2:16 AM CDT [facility] CHOL/HDL RATIO 2.98 <4.50 04/30/2023 2:16 AM CDT [facility] LDL CHOLESTEROL 67 <=130 mg/dL 04/30/2023 2:16 AM CDT [facility] VLDL CHOLESTEROL 30 <=30 mg/dL 04/30/2023 2:16 AM CDT [facility] TRAL LABORATORY PROVIDER ORDERED STATUS RANDOM 04/30/2023 2:16 AM CDT [facility] TR[facility] Blood BLOOD SPECIMEN / Unknown Venipuncture / Unknown 04/29/2023 12:39 PM CDT 04/29/2023 12:43 PM CDT Kole Soriano MD CHEMISTRY [facility] [address] [place] [address], [place] * (ABNORMAL) OCCULT BLOOD IFOBT STOOL (06/18/2020 7:40 AM CDT) STOOL BLOOD ,IFOBT Positive(A ) Negative 06/21/2020 4:23 PM CDT [facility] Stool STOOL SPECIMEN / Unknown Non-Blood / Unknown 06/18/2020 7:40 AM CDT 06/21/2020 3:57 PM CDT Franky Christensen MD LABORATORY [facility] [address] [place] [address], [place] [phone] from Last 3 Months or Most Recently Relevant to Health Maintenance Care Teams Freight Broker Relationship Specialty Start Date End Date Kole Soriano MD [address] [place] [address] PCP - General Family Practice 11/22/20
--- OUTSIDE RECORDS SUMMARY | 2024-01-28 11:59 | XMS_ITS | Continuity of Care Document ---
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 Name Role Phone Nela Brothers DO Unavailable Unavailab le Allergies, Adverse Reactions, Alerts Substance Reaction Status Criticality No Known Allergies Active No Inform ation Medications Medication Instructions Dosage Effective Dates (start - stop) Status Comments rosuvastatin 5 mg tablet take 1 tablet by oral route every day 5 MG - Active famotidine 20 mg tablet as needed - Active Eliquis 5 mg tablet take 1 tablet by oral route 2 times every day 5 MG - Active esomeprazole magnesium 20 mg capsule,delayed release take 1 capsule by oral route every day 20 MG - Active Vitamin D3 2,000 unit tablet take 1 Tablet by Oral route every day 1 Tablet - Active Prostate Therapy capsule - No Longer Active atorvastatin 10 mg tablet take 1 tablet by oral route every day 10 MG - No Longer Active omeprazole 20 mg tablet,delayed release take 1 Tablet by Oral route every day 1 Tablet - No Longer Active Procedures Procedure Date XRay Exam Of Hand 3v XRay Exam Of Wrist 3v X-Ray Exam Of Foot 3v X-Ray Exam Of Ankle 3v Office/Outpatient Visit, New Routine Venipuncture Rbc Sed Rate, Automated CReactive Protein CCP Antibody Rheumatoid Factor, IGM Rheumatoid Factor, IGG, IGA X-Ray Exam Of Foot 2v Office/Outpatient Visit, New X-Ray Exam Of Foot 2v Advance Directives Directive Yes / No Effective Date File Name No Information Encounters Encounter Description Practice Location Reason(s) For Visit Diagnoses Date Provider Providers Copied on Encounter [facility] , [address], [place], [address], [place] tel:[phone] [facility] , No Information [address] Rondon. [address], [place], [address], [place]. tel:[phone] Referring Provider: Nela Khan, [address], [place], [address]. tel:[phone] Office/Outpa tient Visit, New [facility] , [address], [place], [address], [place] tel:[phone] [facility] , Polyarthriti s 4 Julia Rondon. [address], [place], [address], [place]. tel:[phone] Referring Provider: Nela Khan, [address], [place], [address]. tel:[phone] Office/Outpa tient Visit, New [facility] , [address], [place], [address], [place] tel:[phone] [facility] , Musculoskele chiquis pain (chief complaint) Pain in right footTennis elbow of right elbow 5 Serafin Castro. [facility] [address], [place], [address], [place]. tel:[phone] Referring Provider: Gloria Khan, [facility] [address], [place], [address]. tel:[phone] [facility] , [address], [place], [address], [place] tel:[phone] [facility] , No Information 5 Serafin Castro. [facility] [address], [place], [address], [place]. tel:[phone] Family History Family Member Type Diagnosis Age At Onset Mother Problem (finding) Arthritis Payers Payer name Insurance type Covered green party ID [facility]ne [id number] Social History Type Description Quantity Date Captured Comments Alcohol Use Details Unknown Caffeine Use Details Unknown Tobacco Use Status No Information Smoking Status No Information Sex Male Chief Complaint And Reason For Visit No Information Reason For Referral Reason For Referral No Information Plan Of Treatment Date Type Action Status Referral Ordered: X-Ray Exam Of Foot 2v ordered Future Order: Radiology Order Fo ot X-ray; Complete (3+ views) ([id number]), Ordered on: Ordered Future Order: Radiology Order An kle X-ray; Complete (3+ views) ([id number]), Ordered on: Ordered Future Order: Radiology Order Aguirre nd X-ray; Complete (3+ views) ([id number]), Ordered on: Ordered Future Order: Radiology Order Wr ist X-ray; Complete (3+ views) ([id number]), Ordered on: Ordered History Of Present Illness Encounter Date Complaint History Of Prese nt Illness Musculoskeletal pain Functional Status Date Functional Assessmen t No Information Instructions Date Instruction Additional Infor mation No Information Assessments Type Assessment Date No Information Patient Care Teams Name Effective Dates (start - stop) Status Members No Information
[2024-01-28 12:18] LABS: D Dimer Quantitative* 0.26 ug/ml (0.00-0.50)
[2024-01-28 13:25] LABS: Troponin I* < 0.01 ng/mL (0.01-0.04)
== END 2024-01-28 14:11 | disposition home or self-care (01) ==
PROVIDERS: Emergency Provider Emergency Medicine; PCP Family Medicine
DX: R07.89 Other chest pain (principal); R20.0 Anesthesia of skin
CPT/HCPCS: 36415; 70450; 70551; 71046; 80048; 84484; 85025; 85379; 99284; 99285; A9270

== ENCOUNTER 2024-08-23 21:41 | Emergency (ER) | payer OTHER, SELFPAY ==
--- NOTE | 2024-08-23 21:44 | ED.GENADULT ---
HPI - General Adult General Time Seen by Provider: 21:45 Date Seen: 08/23/24 Chief complaint: Unspecified Complaint, Adult Stated complaint: oxy below 90/hx pulomonary embolism Time Seen by Provider: 08/23/24 21:48 Source: patient, family, RN notes reviewed and old records reviewed Mode of arrival: ambulatory Limitations: no limitations History of Present Illness HPI narrative: 69-year-old male who presents today with shortness of breath. Patient says he has not felt well for least the last 2 years. He reports ongoing episodes of shortness of breath and molasses since having pulmonary embolism a couple years ago, also says that just prior to that he had a colonoscopy during which he woke up and had extreme pain, required repeat sedation. He reports that he has been seen by pulmonology and Cardiology multiple times without etiology of his symptoms. He will wake up at night gasping but says he has had sleep studies that did not demonstrate any apnea. Patient and spouse said that symptoms are intermittent, and patient was feeling little bit better until yesterday and today. Tonight patient's spouse checked his oxygen saturation and it was 82%, at that time patient denies shortness of breath, but they decided to come to the emergency department. No cough, chest pain, leg swelling, abdominal pain, nausea, or vomiting. Related Data Home Medications ?Medication ?Instructions ?Recorded ?Confirmed omeprazole 20 mg capsule,delayed 20 mg PO DAILY 10/08/22 03/14/24 release apixaban 5 mg tablet (Eliquis) 5 mg PO BID 10/30/22 03/14/24 rosuvastatin 5 mg tablet 5 mg PO DAILY 06/17/23 03/14/24 Allergies Allergy/AdvReac Type Severity Reaction Status Date / Time sertraline Allergy Verified 08/23/24 23:25 [facility] Medical History (Updated 08/23/24 @ 23:37 by Eliecer Smith MD) History of pulmonary embolus (PE) ?Z86.711 - Personal history of pulmonary embolism (ICD-10) DVT (deep venous thrombosis) ?I82.409 - Acute embolism and thrombosis of unspecified deep veins of unspecified lower extremity (ICD-10) Surgical History History of colonoscopy ?Z98.890 - Other specified postprocedural states (ICD-10) H/O: hemorrhoidectomy ?Z98.890 - Other specified postprocedural states (ICD-10) Social History Narrative: Lives with in [place]. 2 adult children. 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 PCP: Bo Highest level of school completed/degree received: Doctoral degree Smoking Status: Former smoker Do you use any of these nicotine containing products: None Second hand tobacco smoke exposure: No How often do you have a drink containing alcohol: 4 or more times a week Alcohol type: wine How many standard drinks containing alcohol do you have on a typical day: 1 or 2 How often do you have six or more drinks on one occasion: Never AUDIT-C Alcohol total score: 4 Non-prescribed substance use: denies use Caffeine: Yes (coffee) service: No Exam Narrative: Exam Narrative: General: Well-developed and well-nourished, no acute distress Head: Atraumatic and normocephalic Eyes: Pupils are equal reactive, extraocular motions intact, conjunctiva clear ENT: External nose and ears are normal, posterior pharynx without erythema or exudate Neck: No midline cervical tenderness, full spontaneous range of motion the neck, trachea midline, no adenopathy Heart: Regular rate and rhythm no murmurs or thrills Lungs: Clear to auscultation bilaterally without wheezes or crackles Abdomen: Soft, nontender, nondistended with active bowel sounds Musculoskeletal: No tenderness, deformity, or edema Neurologic: Awake, alert, and oriented x3, no gross focal neurologic deficits, cranial nerves intact as tested Psych: Mood and affect are appropriate Skin: No rashes Const: Vital Signs, click to edit/add: Vital Signs - 24 hr 08/23/24 21:51 08/23/24 21:51 Temperature 98.0 F Pulse Rate [Right Pulse Oximeter] 99 Respiratory Rate 20 Blood Pressure [Ri ght Upper Arm] 153/90 H Pulse Oximetry 97 97 Oxygen Delivery Me thod Room Air Course Course ED Course: Patient seen examined, reviewed prior emergency department visits from September 2022 when patient was seen and diagnosed with DVT and CT PE, patient was treated with thrombolytics and admitted. Patient presents today with 2 years of feeling poorly but specifically worse in the last 24 hours, low oxygen saturation on pulse oximeter when they were at home. Patient denies tiredness symptoms of shortness of breath at that time. On exam here, patient says he just feels poorly but is a little vague about what that means. Denies chest pain, shortness of breath, nausea, vomiting, diarrhea, abdominal pain, leg swelling. On exam, patient is finally stable with oxygen saturation 98-99%, lungs are clear. Labs are ordered. Initial EKG is reassuring. Review of chart shows echocardiogram from December 2023 with normal ejection fraction, trace mitral regurgitation, mild tricuspid regurgitation and trace pulmonary regurgitation. Pulmonary function testing from December 2022 was normal. EKG independently interpreted by me performed at 9:51 p.m. demonstrates sinus tachycardia rate 101, incomplete right bundle-branch block, normal axis, QTC 471, PA 190. Compared to prior of January 2024, no acute changes. Reevaluation(s) Time of Reevaluation #1: 22:52 Reevaluation #1: Labs ordered and independently interpreted by me with normal CBC including normal hemoglobin, normal venous blood gas, a normal basic panel, normal magnesium, normal troponin. Time of Reevaluation #2: 23:17 Reevaluation #2: CT scan of the chest independently interpreted by me negative for acute findings. Patient remains widely stable with no hypoxia in the emergency department. Patient is stable for discharge. Would encourage him to follow up with primary care, consider re-evaluation with Cardiology as well. Reviewed most recent echocardiogram for 2022, at that time repeat echocardiogram in 1 year was recommended but it appears that is not yet been done. Would recommend patient follow up with primary care for repeat echocardiogram, also consider follow-up with Cardiology again to discuss further testing including possible right heart catheterization. Vital Signs Vital signs: Initial Vital Signs Temperature 98.0 F 08/23/24 21:51 Temperature Source Temporal Artery Scan 08/23/24 21:51 Pulse Rate 99 08/23/24 21:51 Pulse Rhythm Regular 08/23/24 21:51 Pulse Strength 3+ Normal 08/23/24 21:51 Respiratory Rate 20 08/23/24 21:51 Blood Pressure 153/90 H 08/23/24 21:51 Blood Pressure Mean 111 H 08/23/24 21:51 Blood Pressure Position Supine 08/23/24 21:51 Pulse Oximetry 97 08/23/24 21:51 Oxygen Delivery Method Room Air 08/23/24 21:51 Vital Signs Temperature 98.0 F 08/23/24 21:51 Pulse Rate 99 08/23/24 21:51 Respiratory Rate 20 08/23/24 21:51 Blood Pressure 153/90 H 08/23/24 21:51 Pulse Oximetry 97 08/23/24 21:51 Oxygen Delivery Method Room Air 08/23/24 21:51 Temperature 98.0 F 08/23/24 21:51 Pulse Rate 99 08/23/24 21:51 Respiratory Rate 20 08/23/24 21:51 Blood Pressure 153/90 H 08/23/24 21:51 Pulse Oximetry 97 08/23/24 21:51 Oxygen Delivery Method Room Air 08/23/24 21:51 Medical Decision Making Lab Data Labs: Lab Results 08/23/24 08/23/24 08/23/24 Range/Units 21:48 21:55 22:01 WBC 8.35 (4.50-11.00) K/uL RBC 4.63 (4.30-5.90) m/uL Hgb 13.9 (13.5-17.5) gm/dL Hct 43.2 (37.0-53.0) % MCV 93 (80-100) fL MCH 30 (26-34) pg MCHC 32 (32-36) gm/dL RDW Coeff of Jennifer 13.2 (11.5-15.5) % Plt Count 275 (140-440) K/uL Neut % (Auto) 45.2 (42.0-72.0) % Lymph % (Auto) 38.6 (20-44) % [place] % (Auto) 10.5 (0.0-11.0) % Eos % (Auto) 4.3 (0.0-7.0) % Baso % (Auto) 0.7 (0.0-3.0) % Neut # (Auto) 3.77 (1.7-7.0) K/uL Lymph # (Auto) 3.22 H (0.90-2.90) K/uL [place] # (Auto) 0.90 (0.00-0.90) K/UL Eos # (Auto) 0.36 (0.00-0.50) K/uL Baso # (Auto) 0.06 (0.00-0.30) K/uL Abs Immat Gran (auto) 0.06 (0.00-0.30) K/uL Imm/Tot Granulo (auto) 0.7 % VBG pH 7.406 (7.32-7.43) VBG pCO2 48 (40-50) mmHG VBG pO2 34.1 (25-47) mmHG VBG HCO3 30 H (21-28) mmol/L Sodium 136 (135-149) mmol/L Potassium 3.8 (3.6-5.1) mmol/L Chloride 100 (96-114) mmol/L Carbon Dioxide 28 (20-32) mmol/L Anion Gap 8 (7-15) mEq/L BUN 13 (7-30) mg/dL Creatinine 0.9 (0.5-1.5) mg/dL Estimated Creat Clear 66.10 Estimated GFR 93 ml/min Glucose 93 (60-115) mg/dL Calcium 9.8 (8.4-10.6) mg/dL Magnesium 2.3 (1.5-2.6) mg/dL NT-Pro-B Natriuret Pep < 20 pg/mL POC Creatinine 1.0 (0.6-1.3) mg/dl POC Troponin I 0.02 (0.01-0.04) ng/ml Discharge Plan Discharge Clinical Impression: Chronic dyspnea, Malaise Instructions: Dyspnea (ED), Fatigue (ED) Additional Instructions: Follow-up with your primary care doctor to discuss repeat echocardiogram and possible psychiatry/psychology referral Follow-up with cardiology for repeat echocardiogram and consider further evaluation including right heart catheterization Activity Level: Activity as Tolerated Discharge Diet: Regular Prescriptions: No Action omeprazole 20 mg capsule,delayed release(DR/EC) 20 mg PO DAILY Eliquis 5 mg Tablet 5 mg PO BID rosuvastatin 5 mg tablet 5 mg PO DAILY Follow Up/Referrals: Kole Soriano MD [Primary Care Provider] -
--- NOTE | 2024-08-23 21:48 | CRLHL7_ITS ---
For Patients: As a result of the Century Cures Act, medical imaging exams and procedure reports are released immediately into your electronic medical record. You may view this report before your referring provider. If you have questions, please contact your health care provider. Indication: Dyspnea, hypoxia, history of pulmonary embolism Technique: CTA of the chest following 95 mL Isovue 370 IV contrast. Comparison: CTA chest performed 11/07/2022 Findings: Pulmonary arteries: No pulmonary embolism appreciated. Lungs: No consolidation. No effusion. No pneumothorax. Few scattered small pulmonary nodules are unchanged, no dedicated follow-up recommended. Mediastinum: No acute abnormality appreciated. Lymph nodes: No gross lymphadenopathy. Upper abdomen: No acute abnormality appreciated. Soft tissues: Unchanged nonobstructing left renal stone. Bones: No acute abnormality appreciated. Impression: No acute abnormality appreciated. Please note that all CT scans at this facility use dose modulation, iterative reconstruction, and/or weight-based dosing when appropriate to reduce radiation dose to as low as reasonably achievable. Dictated by Yusef Smith MD @ 08/23/2024 10:55:27 PM (Electronically Signed)
[2024-08-23 21:51] VITALS: BP 153/90; PULSE 99; RESP 20; TEMP 36.7; O2SAT 97; BMI 24.6
[2024-08-23 22:04] LABS: HCO3 VBG 30 mmol/L (21-28); PCO2 VBG 48 mmHG (40-50); PO2 VBG 34.1 mmHG (25-47); pH VBG 7.406 (7.32-7.43)
[2024-08-23 22:08] LABS: Troponin, Point-of-Care* 0.02 ng/ml (0.01-0.04)
[2024-08-23 22:19] LABS: Chloride* 100 mmol/L (96-114); Potassium* 3.8 mmol/L (3.6-5.1); Sodium* 136 mmol/L (135-149)
[2024-08-23 22:22] LABS: Anion Gap 8 mEq/L (7-15); Carbon Dioxide* 28 mmol/L (20-32); Creatinine* 0.9 mg/dL (0.5-1.5); Estimated Glomerular Filt Rate 93 ml/min
[2024-08-23 22:23] LABS: Blood Urea Nitrogen* 13 mg/dL (7-30); Calcium* 9.8 mg/dL (8.4-10.6); Glucose* 93 mg/dL (60-115); Magnesium* 2.3 mg/dL (1.5-2.6)
[2024-08-23 22:24] VITALS: BP 134/84; PULSE 93; RESP 20; O2SAT 98
[2024-08-23 22:32] LABS: Basophils Absolute Auto 0.06 K/uL (0.00-0.30); Basophils Percent Auto 0.7 % (0.0-3.0); Eosinophils Absolute Auto 0.36 K/uL (0.00-0.50); Eosinophils Percent Auto 4.3 % (0.0-7.0); Hematocrit 43.2 % (37.0-53.0); Hemoglobin* 13.9 gm/dL (13.5-17.5); Immature Granulocytes Abs Auto 0.06 K/uL (0.00-0.30); Immature Granulocytes Pct Auto 0.7 %; Lymphocytes Absolute Auto 3.22 K/uL (0.90-2.90); Lymphocytes Percent Auto 38.6 % (20-44); Mean Corpuscular HGB Conc 32 gm/dL (32-36); Mean Corpuscular Hemoglobin 30 pg (26-34); Mean Corpuscular Volume 93 fL (80-100); Monocytes Percent Auto 10.5 % (0.0-11.0); Neutrophils Absolute Auto 3.77 K/uL (1.7-7.0); Neutrophils Percent Auto 45.2 % (42.0-72.0); Platelet Count* 275 K/uL (140-440); RDW Coefficient of Variation % 13.2 % (11.5-15.5); Red Blood Count 4.63 m/uL (4.30-5.90); White Blood Count* 8.35 K/uL (4.50-11.00)
[2024-08-23 22:35] LABS: Slide Review Reflex No
[2024-08-23 22:52] LABS: NT Pro B Type NatriureticPept* < 20 pg/mL
[2024-08-23 23:02] VITALS: BP 109/74; PULSE 83; RESP 20; O2SAT 95
[2024-08-23 23:30] VITALS: PULSE 83; O2SAT 97
[2024-08-23 23:48] VITALS: BP 112/78; PULSE 81; RESP 20; TEMP 36.7; O2SAT 97
== END 2024-08-23 23:49 | disposition home or self-care (01) ==
LOC: ED 22:06
PROVIDERS: Emergency Provider Family Medicine; PCP Family Medicine
DX: R06.00 Dyspnea, unspecified (principal); R53.81 Other malaise
CPT/HCPCS: 36415; 71275; 80048; 82565; 82803; 83735; 83880; 84484; 85025; 85610; 93005; 94761; 99284; 99285; Q9967

== ENCOUNTER 2024-09-19 20:29 | Emergency (ER) | payer OTHER, SELFPAY ==
[2024-09-19 20:53] VITALS: BP 126/87; PULSE 93; RESP 16; TEMP 36.2; O2SAT 97; BMI 24.6
== END 2024-09-19 21:32 | disposition left against medical advice (07) ==
PROVIDERS: Emergency Provider Family Medicine; PCP Family Medicine
DX: Z53.21 Procedure and treatment not carried out due to patient leaving prior to being seen by health care provider (principal)
CPT/HCPCS: 87631

== ENCOUNTER 2024-09-20 05:59 | Emergency (ER) | payer OTHER, SELFPAY ==
[2024-09-20] VITALS (15 sets, daily range): BP systolic 113–139; BP diastolic 73–85; PULSE 92–106; RESP 16–18; TEMP 36.6; O2SAT 96–99; BMI 24.6
--- NOTE | 2024-09-20 06:28 | ED.GENADULT ---
HPI - General Adult General Chief complaint: Unspecified Complaint, Adult <Ro Hartman MD - Last Filed: 09/20/24 07:56> Stated complaint: HR elevated, weakness <Ro Hartman MD - Last Filed: 09/20/24 07:56> Time Seen by Provider: 09/20/24 06:09 <Ro Hartman MD - Last Filed: 09/20/24 07:56> Source: patient <Ro Hartman MD - Last Filed: 09/20/24 07:56> Mode of arrival: ambulatory <Ro Hartman MD - Last Filed: 09/20/24 07:56> Limitations: no limitations <Ro Hartman MD - Last Filed: 09/20/24 07:56> History of Present Illness HPI narrative: 69-year-old male presenting today complaining of muscle weakness, fatigue and chills. Patient states that he has been ill for approximately 1 week. He had a really bad night before last night. The even came to the ER but because the wait was long they ended up going back home. He states that last night he could stop shaking. Patient's stated that she tried to give him lorazepam but he did not want to take it. He also started taking Lexapro over the weekend. He states that he took it for 2 days only in felt so nauseated that he had to stop. He has not had any fevers. He states that he feels very nauseated and so has been eating very little over the last week. Denies vomiting. No cough, chest pain or abdominal pain. He states that his pulse is very fast 1st thing in the morning but this is not necessarily new but he is concerned that is faster than usual. He states that his doctor did give him propanolol in the past to take when this occurs but he is concerned because he feels that the pulse going up to 120 in the morning is abnormal for him- his states that this is not new. He is not short of breath. He states that his symptoms come in waves and are not constant throughout the day. <Ro Hartman MD - Last Filed: 09/20/24 07:56> Related Data Home medications: Home Medications ?Medication ?Instructions ?Recorded ?Confirmed omeprazole 20 mg capsule,delayed 20 mg PO DAILY 10/08/22 08/23/24 release apixaban 5 mg tablet (Eliquis) 5 mg PO BID 10/30/22 08/23/24 rosuvastatin 5 mg tablet 5 mg PO DAILY 06/17/23 08/23/24 <Ro Hartman MD - Last Filed: 09/20/24 07:56> Allergies/adverse reactions: Allergies Allergy/AdvReac Type Severity Reaction Status Date / Time sertraline Allergy Verified 08/23/24 23:25 <Ro Hartman MD - Last Filed: 09/20/24 07:56> Review of Systems Status of ROS: Reports: 10 or more systems reviewed and unremarkable except as noted in History and below <Ro Hartman MD - Last Filed: 09/20/24 07:56> [facility] Medical History: Medical History History of pulmonary embolus (PE) ?Z86.711 - Personal history of pulmonary embolism (ICD-10) DVT (deep venous thrombosis) ?I82.409 - Acute embolism and thrombosis of unspecified deep veins of unspecified lower extremity (ICD-10) <Ro Hartman MD - Last Filed: 09/20/24 07:56> Surgical History: Surgical History History of colonoscopy ?Z98.890 - Other specified postprocedural states (ICD-10) H/O: hemorrhoidectomy ?Z98.890 - Other specified postprocedural states (ICD-10) <Ro Hartman MD - Last Filed: 09/20/24 07:56> Social History: Social History Narrative: Lives with in [place]. 2 adult children. 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 PCP: Bo Highest level of school completed/degree received: Doctoral degree Smoking Status: Former smoker Do you use any of these nicotine containing products: None Second hand tobacco smoke exposure: No How often do you have a drink containing alcohol: 4 or more times a week Alcohol type: wine How many standard drinks containing alcohol do you have on a typical day: 1 or 2 How often do you have six or more drinks on one occasion: Never AUDIT-C Alcohol total score: 4 Non-prescribed substance use: denies use Caffeine: Yes (coffee) service: No <Ro Hartman MD - Last Filed: 09/20/24 07:56> Exam Narrative: Exam Narrative: Well-nourished well-developed patient in no acute distress. Alert and oriented. Answers questions appropriately. Mood and affect are appropriate. Patient speaks in full sentences without needing to catch his breath. He does not appear ill or toxic. HEENT: Normocephalic atraumatic. Pupils are equally round reactive to light. Extraocular muscles are intact. Conjunctivae are moist without any icterus noted. Moist mucous membranes. Posterior pharynx is normal. Neck is soft without any lymphadenopathy or thyromegaly. No masses are appreciated. Cardiovascular: Heart is regular rate and rhythm S1 and S2 are present without any murmurs. Lungs: Clear to auscultation bilaterally no wheezes rhonchi or rales are appreciated. Patient takes deep breaths without any discomfort. Abdomen: Soft and nontender nondistended with normal bowel sounds. No guarding or rebound. No masses or organomegaly appreciated. Extremities: Bilateral lower extremities are without edema. Normal DP and PT pulses. Skin: Well perfused without any obvious rashes. <Ro Hartman MD - Last Filed: 09/20/24 07:56> Const: Vital Signs, click to edit/add: Vital Signs - 24 hr 09/20/24 06:03 09/20/24 06:16 09/20/24 06:34 Temperature 97.9 F Pulse Rate Pulse Rate [Left P ulse Oximeter] 106 H 94 Respiratory Rate 18 16 Blood Pressure Blood Pressure [Ri ght Upper Arm] 139/85 138/82 Pulse Oximetry 99 96 97 Oxygen Delivery Me thod Room Air Room Air 09/20/24 06:44 09/20/24 07:00 09/20/24 07:01 Temperature Pulse Rate 93 92 92 Pulse Rate [Left P ulse Oximeter] Respiratory Rate Blood Pressure 119/74 Blood Pressure [Ri ght Upper Arm] Pulse Oximetry 97 96 97 Oxygen Delivery Me thod 09/20/24 07:30 09/20/24 07:31 Temperature Pulse Rate 95 95 Pulse Rate [Left P ulse Oximeter] Respiratory Rate Blood Pressure 129/80 Blood Pressure [Ri ght Upper Arm] Pulse Oximetry 98 99 Oxygen Delivery Me thod <Ro Hartman MD - Last Filed: 09/20/24 07:56> Vital Signs, click to edit/add: Vital Signs - 24 hr 09/20/24 06:03 09/20/24 06:16 09/20/24 06:34 Temperature 97.9 F Pulse Rate Pulse Rate [Left P ulse Oximeter] 106 H 94 Respiratory Rate 18 16 Blood Pressure Blood Pressure [Ri ght Upper Arm] 139/85 138/82 Pulse Oximetry 99 96 97 Oxygen Delivery Me thod Room Air Room Air 09/20/24 06:44 09/20/24 07:00 09/20/24 07:01 Temperature Pulse Rate 93 92 92 Pulse Rate [Left P ulse Oximeter] Respiratory Rate Blood Pressure 119/74 Blood Pressure [Ri ght Upper Arm] Pulse Oximetry 97 96 97 Oxygen Delivery Me thod 09/20/24 07:30 09/20/24 07:31 Temperature Pulse Rate 95 95 Pulse Rate [Left P ulse Oximeter] Respiratory Rate Blood Pressure 129/80 Blood Pressure [Ri ght Upper Arm] Pulse Oximetry 98 99 Oxygen Delivery Me thod <Franky White MD - Last Filed: 09/20/24 09:14> Course Course ED Course: EKG, read by me, shows normal sinus rhythm with a pulse of 90, incomplete right bundle-branch block. This is unchanged from EKG he had on 08/23/2024. CBC unremarkable. Normal lactate. Normal tripled swab. Chemistries are normal. Normal LFTs. Normal CRP. 2+ ketones in his urine. Negative salicylates, acetaminophen and alcohol levels. <Ro Hartman MD - Last Filed: 09/20/24 07:56> Vital Signs Vital signs: Initial Vital Signs Temperature 97.9 F 09/20/24 06:03 Temperature Source Temporal Artery Scan 09/20/24 06:03 Pulse Rate 106 H 09/20/24 06:03 Pulse Rhythm Regular 09/20/24 06:03 Respiratory Rate 18 09/20/24 06:03 Blood Pressure 139/85 09/20/24 06:03 Blood Pressure Mean 103 09/20/24 06:03 Blood Pressure Position Sitting 09/20/24 06:03 Pulse Oximetry 99 09/20/24 06:03 Oxygen Delivery Method Room Air 09/20/24 06:03 Vital Signs Temperature 97.9 F 09/20/24 06:03 Pulse Rate 106 H 09/20/24 06:03 Respiratory Rate 18 09/20/24 06:03 Blood Pressure 139/85 09/20/24 06:03 Pulse Oximetry 99 09/20/24 06:03 Oxygen Delivery Method Room Air 09/20/24 06:03 Temperature 97.9 F 09/20/24 06:03 Pulse Rate 95 09/20/24 07:31 Respiratory Rate 16 09/20/24 06:34 Blood Pressure 129/80 09/20/24 07:31 Pulse Oximetry 99 09/20/24 07:31 Oxygen Delivery Method Room Air 09/20/24 06:34 <Ro Hartman MD - Last Filed: 09/20/24 07:56> Initial Vital Signs Temperature 97.9 F 09/20/24 06:03 Temperature Source Temporal Artery Scan 09/20/24 06:03 Pulse Rate 106 H 09/20/24 06:03 Pulse Rhythm Regular 09/20/24 06:03 Respiratory Rate 18 09/20/24 06:03 Blood Pressure 139/85 09/20/24 06:03 Blood Pressure Mean 103 09/20/24 06:03 Blood Pressure Position Sitting 09/20/24 06:03 Pulse Oximetry 99 09/20/24 06:03 Oxygen Delivery Method Room Air 09/20/24 06:03 Vital Signs Temperature 97.9 F 09/20/24 06:03 Pulse Rate 106 H 09/20/24 06:03 Respiratory Rate 18 09/20/24 06:03 Blood Pressure 139/85 09/20/24 06:03 Pulse Oximetry 99 09/20/24 06:03 Oxygen Delivery Method Room Air 09/20/24 06:03 Temperature 97.9 F 09/20/24 06:03 Pulse Rate 95 09/20/24 07:31 Respiratory Rate 16 09/20/24 06:34 Blood Pressure 129/80 09/20/24 07:31 Pulse Oximetry 99 09/20/24 07:31 Oxygen Delivery Method Room Air 09/20/24 06:34 <Franky White MD - Last Filed: 09/20/24 09:14> Medications Administered Medications: Discontinued Medications Generic Name Dose Route Start Last Admin Trade Name Freq PRN Reason Stop Dose Admin Sodium Chloride 500 mls @ 500 mls/hr 09/20/24 06:16 09/20/24 07:44 0.9 % Sodium Chloride 500 Ml IV 09/20/24 07:15 Infused .Q1H ONE Infusion <Ro Hartman MD - Last Filed: 09/20/24 07:56> Discontinued Medications Generic Name Dose Route Start Last Admin Trade Name Freq PRN Reason Stop Dose Admin Sodium Chloride 500 mls @ 500 mls/hr 09/20/24 06:16 09/20/24 07:44 0.9 % Sodium Chloride 500 Ml IV 09/20/24 07:15 Infused .Q1H ONE Infusion <Franky White MD - Last Filed: 09/20/24 09:14> Medical Decision Making MDM Narrative Medical decision making narrative: Christopher -- received this patient in hand off at change of shift pending a remainder of labs. These returned and are all normal. Discharge per Dr. Hartman <Franky White MD - Last Filed: 09/20/24 09:14> Lab Data Labs: Lab Results 09/20/24 09/20/24 Range/Units 06:18 06:29 WBC 7.85 (4.50-11.00) K/uL RBC 4.52 (4.30-5.90) m/uL Hgb 13.7 (13.5-17.5) gm/dL Hct 42.0 (37.0-53.0) % MCV 93 (80-100) fL MCH 30 (26-34) pg MCHC 33 (32-36) gm/dL RDW Coeff of Jennifer 13.6 (11.5-15.5) % Plt Count 285 (140-440) K/uL Neut % (Auto) 70.5 (42.0-72.0) % Lymph % (Auto) 18.9 L (20-44) % [place]uming % (Auto) 9.6 (0.0-11.0) % Eos % (Auto) 0.4 (0.0-7.0) % Baso % (Auto) 0.3 (0.0-3.0) % Neut # (Auto) 5.55 (1.7-7.0) K/uL Lymph # (Auto) 1.50 (0.90-2.90) K/uL [place]uming # (Auto) 0.80 (0.00-0.90) K/UL Eos # (Auto) 0.03 (0.00-0.50) K/uL Baso # (Auto) 0.02 (0.00-0.30) K/uL Abs Immat Gran (auto) 0.02 (0.00-0.30) K/uL Imm/Tot Granulo (auto) 0.3 % INR 1.07 (0.91-1.10) Sodium 136 (135-149) mmol/L Potassium 4.1 (3.6-5.1) mmol/L Chloride 105 (96-114) mmol/L Carbon Dioxide 25 (20-32) mmol/L Anion Gap 6 L (7-15) mEq/L BUN 14 (7-30) mg/dL Creatinine 0.8 (0.5-1.5) mg/dL Estimated Creat Clear 66.10 Estimated GFR 96 ml/min Glucose 97 (60-115) mg/dL Lactate 0.9 (0.5-1.9) mmol/L Calcium 9.6 (8.4-10.6) mg/dL Magnesium 2.2 (1.5-2.6) mg/dL Total Bilirubin 0.7 (0.1-1.5) mg/dL Direct Bilirubin 0.3 (0.0-0.5) mg/dL AST 30 (12-35) U/L ALT 23 (4-50) U/L Alkaline Phosphatase 48 (40-150) U/L Troponin I < 0.01 L (0.01-0.04) ng/mL C-Reactive Protein < 0.5 L (0.5-1.0) mg/dL Total Protein 7.3 (6.0-8.3) g/dL Albumin 4.4 (3.3-5.0) g/dL Lipase 72 (23-300) U/L Procalcitonin 0.04 (<0.50) ng/mL TSH 2.160 (0.270-4.20) uIU/mL Urine Color Yellow (Yellow) Urine Appearance Clear (Clear) Urine pH 6.0 (5.0-8.5) Ur Specific [place] 1.020 (1.000-1.030) Urine Protein Negative (Negative) Urine Glucose (UA) Negative (Negative) Urine Ketones 2+ A (Negative) Urine Blood Trace-intact A (Negative) Urine Nitrite Negative (Negative) Urine Bilirubin Negative (Negative) Urine Urobilinogen 0.2 (0.2-1.0) Ur Leukocyte Esterase Negative (Negative) Urine RBC 0-2 (0-2) Urine WBC 0-2 (0-5) Ur Squamous Epith Cells None (None-Few) Urine Bacteria None (None) Urine Mucus Few A (None) Salicylates < 1.0 L (1.0-10) mg/dL Acetaminophen < 10.0 L (10.0-30.0) ug/mL Ethyl Alcohol < 0.00 L (0.01-0.03) % SARS-CoV-2 (PCR) Negative SARS-CoV-2 (Negative) Influenza Type A (PCR) Negative PCR FLU A (Negative) Influenza Type B (PCR) Negative PCR FLU B (Negative) RSV (PCR) Negative PCR RSV (Negative) <Ro Hartman MD - Last Filed: 09/20/24 07:56> Lab Results 09/20/24 09/20/24 Range/Units 06:18 06:29 WBC 7.85 (4.50-11.00) K/uL RBC 4.52 (4.30-5.90) m/uL Hgb 13.7 (13.5-17.5) gm/dL Hct 42.0 (37.0-53.0) % MCV 93 (80-100) fL MCH 30 (26-34) pg MCHC 33 (32-36) gm/dL RDW Coeff of Jennifer 13.6 (11.5-15.5) % Plt Count 285 (140-440) K/uL Neut % (Auto) 70.5 (42.0-72.0) % Lymph % (Auto) 18.9 L (20-44) % [place]uming % (Auto) 9.6 (0.0-11.0) % Eos % (Auto) 0.4 (0.0-7.0) % Baso % (Auto) 0.3 (0.0-3.0) % Neut # (Auto) 5.55 (1.7-7.0) K/uL Lymph # (Auto) 1.50 (0.90-2.90) K/uL [place] # (Auto) 0.80 (0.00-0.90) K/UL Eos # (Auto) 0.03 (0.00-0.50) K/uL Baso # (Auto) 0.02 (0.00-0.30) K/uL Abs Immat Gran (auto) 0.02 (0.00-0.30) K/uL Imm/Tot Granulo (auto) 0.3 % INR 1.07 (0.91-1.10) Sodium 136 (135-149) mmol/L Potassium 4.1 (3.6-5.1) mmol/L Chloride 105 (96-114) mmol/L Carbon Dioxide 25 (20-32) mmol/L Anion Gap 6 L (7-15) mEq/L BUN 14 (7-30) mg/dL Creatinine 0.8 (0.5-1.5) mg/dL Estimated Creat Clear 66.10 Estimated GFR 96 ml/min Glucose 97 (60-115) mg/dL Lactate 0.9 (0.5-1.9) mmol/L Calcium 9.6 (8.4-10.6) mg/dL Magnesium 2.2 (1.5-2.6) mg/dL Total Bilirubin 0.7 (0.1-1.5) mg/dL Direct Bilirubin 0.3 (0.0-0.5) mg/dL AST 30 (12-35) U/L ALT 23 (4-50) U/L Alkaline Phosphatase 48 (40-150) U/L Troponin I < 0.01 L (0.01-0.04) ng/mL C-Reactive Protein < 0.5 L (0.5-1.0) mg/dL Total Protein 7.3 (6.0-8.3) g/dL Albumin 4.4 (3.3-5.0) g/dL Lipase 72 (23-300) U/L Procalcitonin 0.04 (<0.50) ng/mL TSH 2.160 (0.270-4.20) uIU/mL Urine Color Yellow (Yellow) Urine Appearance Clear (Clear) Urine pH 6.0 (5.0-8.5) Ur Specific [place] 1.020 (1.000-1.030) Urine Protein Negative (Negative) Urine Glucose (UA) Negative (Negative) Urine Ketones 2+ A (Negative) Urine Blood Trace-intact A (Negative) Urine Nitrite Negative (Negative) Urine Bilirubin Negative (Negative) Urine Urobilinogen 0.2 (0.2-1.0) Ur Leukocyte Esterase Negative (Negative) Urine RBC 0-2 (0-2) Urine WBC 0-2 (0-5) Ur Squamous Epith Cells None (None-Few) Urine Bacteria None (None) Urine Mucus Few A (None) Salicylates < 1.0 L (1.0-10) mg/dL Acetaminophen < 10.0 L (10.0-30.0) ug/mL Ethyl Alcohol < 0.00 L (0.01-0.03) % SARS-CoV-2 (PCR) Negative SARS-CoV-2 (Negative) Influenza Type A (PCR) Negative PCR FLU A (Negative) Influenza Type B (PCR) Negative PCR FLU B (Negative) RSV (PCR) Negative PCR RSV (Negative) <Franky White MD - Last Filed: 09/20/24 09:14> Discharge Plan Discharge Clinical Impression: Weakness <Ro Hartman MD - Last Filed: 09/20/24 07:56> Patient Disposition: Home, Self-Care <Ro Hartman MD - Last Filed: 09/20/24 07:56> Condition: Stable <oR Hartman MD - Last Filed: 09/20/24 07:56> Additional Instructions: Your workup today was unremarkable. There is no evidence of infection or inflammation or other life-threatening abnormalities to explain your symptoms. I recommend that you make sure that you are drinking plenty of fluids throughout the day, including things like chicken broth and protein shakes. I also recommend that you follow-up with your primary care provider for further studies. <Ro Hartman MD - Last Filed: 09/20/24 07:56> Prescriptions: No Action omeprazole 20 mg capsule,delayed release(DR/EC) 20 mg PO DAILY Eliquis 5 mg Tablet 5 mg PO BID rosuvastatin 5 mg tablet 5 mg PO DAILY <Ro Hartman MD - Last Filed: 09/20/24 07:56> Follow Up/Referrals: Kole Soriano MD [Primary Care Provider] - <Ro Hartman MD - Last Filed: 09/20/24 07:56> Stand Alone Forms: [employer] Info Instructions <Ro Hartman MD - Last Filed: 09/20/24 07:56>
[2024-09-20] MEDS: 0.9 % SODIUM CHLORIDE 500 ML 500 ML IV (06:35)
--- OUTSIDE RECORDS SUMMARY | 2024-09-20 06:47 | XMS_ITS | Clinical Summary ---
Author Organization [facility] Address [place], [place] [address] Care Team Providers Care [employer] Name Role Phone Kole Soriano MD Primary Care Provider Allergies Active Allergy Reactions Criticality Noted Date Comments Escitalopram Other - Describe In Comment Field 09/18/2024 Weak, twitchy, no energy, low mood, nausea and complete loss of appetite. Sertraline Other - Describe In Comment Field 07/14/2023 Blurred vision after first dose of 25mg. Medications cholecalciferol (VITAMIN D) 1,000 unit tablet Take 1 tablet by mouth 2 times daily. 0 014 Active Eliquis 5 mg tabletIndications :Pulmonary embolism, bilateral (HC) TAKE ONE TABLET BY MOUTH TWICE A DAY 180 Tablet 3 023 Active omeprazole (PRILOSEC) 20 mg Delayed-Release capsuleIndication s:Gastroesophagea l reflux disease, unspecified whether esophagitis present Take 1 Capsule (20 mg) by mouth once daily before a meal. 90 Capsule 3 024 Active sulfacetamide-sul fur (SULFACET-R) 10%-5% (w/w) cleanser 023 Active LORazepam (ATIVAN) 0.5 mg tabIndications:An xiety TAKE ONE TABLET BY MOUTH TWICE A DAY NEEDED 20 Tablet 024 Active rosuvastatin (CRESTOR) 5 mg tabletIndications :Pulmonary embolism, bilateral (HC),Mixed hyperlipidemia TAKE ONE TABLET (5 MG) BY MOUTH EVERY DAY AT BEDTIME .FURTHER REFILLS REQUIRE A CARDIOLOGY APPT. 30 Tablet 1 Active propranoloL (INDERAL) 10 mg tabletIndications :Anxiety One oral three times daily as needed for anxiety / panic. 30 Tablet 3 024 Active famotidine (Pepcid) 20 mg tablet Take 1 Tablet (20 mg) by mouth once daily if needed for GI Upset. 0 023 2023 Discontinued(* Med complete/Regim en complete/Level of care change) rosuvastatin (CRESTOR) 5 mg tabletIndications :Pulmonary embolism, bilateral (HC),Mixed hyperlipidemia Take 1 Tablet (5 mg) by mouth at bedtime. 30 Tablet 024 2023 Discontinued escitalopram oxalate (LEXAPRO) 5 mg tabletIndications :Anxiety Take 1 Tablet (5 mg) by mouth once daily in the morning. 30 Tablet 1 024 2023 Discontinued(* Allergic/Adver se Rxn/Side Effects) Hospital, Clinic, or Other Facility Administered Medication Ordered Dose Route Frequency Start Date End Date Status triamcinolone acetonide (KENALOG) injection 10 mgIndications:Guido 's neuroma, right 10 mg INFILTRATION ONE TIME 09/19/2024 09/19/2024 Ended Active Problems Problem Noted Date Diagnosed Date Kidney stone 09/05/2024 Nasal polyp 09/05/2024 Pulmonary hypertension 03/22/2024 Nonspecific paroxysmal spell 07/14/2023 Pulmonary embolism, bilateral (HC) 10/08/2022. t PA. 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 08/2020. 10/12/2022 GERD (gastroesophageal reflux disease) 3 Overview (04/20/2013): EGD 04/2013 gastritis, H. Pylori negative Mixed hyperlipidemia 12/22/2012 Resolved Problems Problem Noted Date Diagnosed Date Resolved Date Left leg DVT (HC) 08/2020. E liquis for 6 months. 08/13/2022 Overview (11/22/2020): Provoked after drive to [place]. Eliquis. Encounters Date Type Department Care Team Description 09/19/2024 3:00 PM 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 Office Visit [facility] [address] [place] [address] Jc Damon DPM Follow Up (Right foot, guido's neuroma) 09/19/2024 Travel 09/15/2024 Travel 09/15/2024 Telephone [facility] [address] [place] [address] Kole Soriano MD Medication Management 09/05/2024 11:20 AM 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 Office Visit [facility] [address] [place] [address] Kole Soriano MD Blood In Stool; Constipation 09/04/2024 Travel 08/29/2024 10:00 AM 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 Nurse/Clinic Staff Only [facility] [address] [place] [id number] Immunization/Injecti on 08/29/[address] [place] [address] Maxwell Smith MD Refill Request (Rosuvastatin) 08/28/2024 Travel 08/24/2024 Medical Messaging [facility] [address] [place] [address] Kole Soriano MD Referral to Psychiatrist 08/23/2024 Orders Only [facility] Scanner 1 scan: (1-Ord) [facility], CT ANGIO CHEST PE PROTOCOL, 08/23/2024 08/23/[address] [place] [address] Maxwell Smith MD Refill Request (Rosuvastatin) 08/02/2024 Refill [facility] [address] [place] [address] Kole Soriano MD Refill Request (Lorazepam) 07/20/[address] [place] [address] Maxwell Smith MD Refill Request (Rosuvastatin) 06/26/[address] [place] [address] Maxwell Smith MD Appointment Reminder from Last 3 Months Immunizations Name Administration Dates Next Due COVID-19 vaccine (Pfizer-Bio NTech 30mcg/0.3mL) 12YO+ BIVALENT PF, MDV 02/22/2023,07/03/2022 COVID-19 vaccine (Pfizer-Bio NTech 30mcg/0.3mL) 12YO+ HA-SUCROSE PF, MDV 04/23/2022 COVID-19 vaccine (Pfizer-Bio NTech 30mcg/0.3mL) PF, MDV 08/13/2021,01/28/2021,01/05/2021 Influenza, IIV4 06/21/2020, 9,09/15/2018,2013 Influenza, Inactivated AIIV4 (Age 65+ Years) Preserv Free 07/14/2022,07/03/2021 Influenza, Inactivated IIV3 (Age 65+ Years) Preserv Free 08/29/2024 Pneumococcal Poly,23-Valent (Pneumovax) 07/03/2021 Tdap 09/28/2016,01/06/2013 Zoster [...] PHQ-2 Answer Date Recorded PHQ-2 TOTAL SCORE 2 08/24/2024 Social Connections Answer Date Recorded Do you often feel lonely or isolated from those around you? 0 03/22/2024 Financial Resource Strain Answer Date R ecorded Difficulty of Paying Living Expenses 3 03/22/2024 Difficulty of Paying Living Expenses Not on file 03/22/2024 Food Insecurity Answer Date Recorded Do you worry your food will run out before you are able to buy more? 1 03/22/2024 Transportation Needs Answer Date Record ed Does lack of transportation keep you from medica l appointments? 1 03/22/2024 Does lack of transportation keep you from work, meetings or getting things that you need? 1 03/22/2024 Housing Stability Answer Date Recorded What is your housing situation today? 1 03/22/2024 Sex and Gender Information Value Date Recorded Sex Assigned at Male 11/19/2020 9:45 AM 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 Legal Sex Male 6:20 AM 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 Gender Identity Male 11/19/2020 9:45 AM 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 Sexual Orientation Not on file Travel History Travel Start Travel End [place] 09/07/2024 09/14/2024 Obstetrics History Last Filed Vital Signs Vital Sign Reading Time Taken Comments Blood Pressure 122/78 09/19/2024 3:13 PM 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 Pulse 92 09/19/2024 3:13 PM 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 Temperature 36.7 C (98 F) 04/14/2024 3:04 PM CDT Respiratory Rate 16 06/16/2024 11:16 AM CDT Oxygen Saturation 99% 09/19/2024 3:13 PM 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 Inhaled Oxygen Concentration - - Weight 73 kg (161 lb) 09/05/2024 11:14 AM 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 Height 172.1 cm (5' 7.75) 12/22/2022 10:27 AM C DT Body Mass Index 24.66 12/22/2022 10:27 AM CDT Plan of Treatment Upcoming Encounters Date Type Department Care Team (Late st Contact Info) Description 10/02/2024 2:30 PM 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 Office Visit [facility] [address] [place] [address] Kole Soriano MD [address] [place] [address] 10/17/2024 11:00 AM 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 Office Visit [address] [phone] Judy Garcia PA [facility] [place] [address] Health Maintenance Due Date Last Done Comments AAA screening age 65-74 2021 Pneumococcal series for age 65+ (2 of 2 - PCV) 07/03/2022 07/03/2021 BMI (ht and wt on same day) for age 18+ 12/23/2023 12/22/2022, 11/27/2022, 10/14/2022, Additional history exists Depression screening for age 12+ 08/28/2025 08/28/2024, 08/24/2024, 07/14/2023, Additional history exists Tetanus booster 09/28/2026 09/28/2016, 01/06/2013 Lipids for age 45-75 03/22/2029 03/22/2024, 04/29/2023, 04/03/2021, Additional history exists RSV vaccine for adults or (1 - 1-dose 75+ series) 2031 Colonoscopy through age 75 08/05/203208/05, 08/05/2022, 08/05/2022 Tdap Completed 09/28/2016, 01/06/2013 Zoster (shingles) series for age 50+ Completed 12/23/2018, 05/11/2018 Hepatitis C screening for ag e 18-79 Completed 04/29/2023 COVID-19 vaccine series Completed 08/09/20, 07/05/2023, 02/22/2023, Additional history exists Influenza for age 65+ Completed 08/29/2024 , 07/14/2022, 07/03/2021, Additional history exists Procedures Procedure Name Priority Date/Time Associated Diagnosis Comments SCAN-CT INTERPRETATION 12:00 AM 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 LIPID PANEL W REFLEX MEASURED LDL Routine 03/22/2024 11:48 AM CDT Hyperlipidemia, unspecified hyperlipidemia type LC HCV ANTIBODY RFX TO QUANT PCR Routine 04/29/2023 12:39 PM CDT Need for hepatitis C screening test COLONOSCOPY SCREENING Routine 08/05/2022 12:56 PM CDT Screening for colon cancer from Last 3 Months or Most Recently Relevant to Health Maintenance Results * SCAN-CT INTERPRETATION (08/23/2024 12:00 AM 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) Anatomical Region Laterality Modality Other us Scanner OTHER Final Result * (ABNORMAL) LIPID PANEL W REFLEX MEASURED LDL (03/22/2024 11:48 AM CDT) CHOLESTEROL,TOTAL 194 100 - 199 mg/dL 03/22/2024 11:56 PM CDT [facility] Comment: Cholesterol, Total Reference Ranges Desirable <200 mg/dL Borderline 200-239 mg/dL High >=240 mg/dL TRIGLYCERIDES 153(H) <150 mg/dL 03/22/2024 11:56 PM CDT [facility] HDL CHOLESTEROL 64 >40 mg/dL 11:56 PM CDT [facility] NON-HDL CHOLESTEROL 130 <145 mg/dl 03/22/2024 11:56 PM CDT [facility] CHOL/HDL RATIO 3.03 <4.50 03/22/2024 11:56 PM CDT [facility] LDL CHOLESTEROL 99 <=130 mg/dL 03/22/2024 11:56 PM CDT [facility] VLDL CHOLESTEROL 31(H) <=30 mg/dL 03/22/2024 11:56 PM CDT [facility] PROVIDER ORDERED STATUS RANDOM 03/22/2024 11:56 PM CDT [facility] Blood BLOOD SPECIMEN / Unknown Venipuncture / Unknown 03/22/2024 11:48 AM CDT 03/22/2024 11:48 AM CDT us Kole Soriano MD CHEMISTRY Final Result [facility] [address] [place] [address], [place] * LC HCV ANTIBODY RFX TO QUANT PCR (04/29/2023 12:39 PM CDT) HCV Ab Non Reactive Non Reactive 05/01/2023 12:07 PM CDT [facility] Blood BLOOD SPECIMEN / Unknown Venipuncture / Unknown 04/29/2023 12:39 PM CDT 04/29/2023 12:43 PM CDT Narrative [facility] - 05/01/2023 12:07 PM CDT Performed at: 01 - [facility] [place], [place] [id number] Process Cheese Cooker: Keven Mcmahan MD, Phone: [phone] us Kole Soriano MD LABORATORY Final Result [facility] [place] [address], * COLONOSCOPY (08/05/2022 1:09 PM CDT) 08/05/2022 1:09 PM CDT Narrative Transcriptions Adams Charlton MD - 08/05/2022 1:57 PM CDT Patient Name: Jacobciro Armstrong Procedure Date: 08/05/2022 Gender: Male Date of : 1955 Admit Type: Outpatient Procedure: Colonoscopy Proceduralist: Adams Charlton MD , Barbara Santiago RN(Nurse), Emi Ramos (Nurse) Referring MD: Kole Soriano Indications/Pre-Op Diagnosis: Screening for colorectal malignant neoplasm, This is the patient's first colonoscopy Medications: Fentanyl 100 micrograms IV, Midazolam 4 mgIV, The level of sedation administered wasmoderate Procedure Description: The patient had risks, benefits and alternatives explained to andgave informed consent. The patient had a stable cardiopulmonary status and judged an adequate candidate for conscious sedation. The [id number] was passed through the anus and advanced to the cecum, identified by appendiceal orifice and ileocecal valve. Thecolonoscopy was performed without difficulty. The patient tolerated the procedure well. The quality of the bowel preparation was good. The ileocecal valve, appendiceal orifice, and rectum were photographed. Complications: No immediate complications. Estimated Blood Loss & Specimen: Estimated blood loss: none. Specimen collected - None Findings: The perianal and digital rectal examinations were normal. A 2 mm polyp was found in the transverse colon. The polyp wassessile. The polyp was removed with a cold snare. Resection was complete, butthe polyp tissue was not retrieved. The colon (entire examined portion) was moderately redundant. The exam was otherwise without abnormality on direct and retroflexion views. Impressions/Post-Op Diagnosis: - One 2 mm polyp in the transverse colon, removed with a cold snare. Complete resection. Polyp tissue not retrieved. - Redundant colon. - The examination was otherwise normal on direct and retroflexionviews. Recommendation: - Patient has a contact number available for emergencies. The signsand symptoms of potential delayed complications were discussed with the patient. Return to normal activities tomorrow. Written discharge instructions were provided to the patient. - Resume previous diet. - Continue present medications. - Repeat colonoscopy in 10 years for screening purposes. Moderate Sedation: A time out was performed before the procedure. Moderate (conscious) sedation was administered by the endoscopy nurse and supervised bythe endoscopist. The following parameters were monitored: oxygensaturation, heart rate, blood pressure, EKG, CO2, respiratory rate, adequacy of pulmonary ventilation and reponse to care. Please refer to the patient's medical record flowsheets and nursing notes for moderate sedation details. Total physician intraservice time was 25 minutes. Adams Charlton MD 08/05/2022 1:57:30 PM This report has been signed electronically. Note Initiated On: 08/05/2022 1:09 PM Procedure Code(s): --- Professional --- 46804, Colonoscopy, flexible; with removalof tumor(s), polyp(s), or other lesion(s) bysnare technique Diagnosis Code(s): --- Professional --- Z12.11, Encounter for screening formalignant neoplasm of colon D12.3, Benign neoplasm of transverse colon (hepatic flexure or splenic flexure) Q43.8, Other specified congenitalmalformations of intestine CPT copyright 2020 [employer]. All rights reserved. The codes documented in this report are preliminary and upon rn stars reviewmay be revised to meet current compliance requirements. Scope In: 1:27:43 PM Scope Withdrawal Time 0 hours 8 minutes 1 second Scope Out: 1:51:08 PM us Adams Charlton MD PROCEDURE ORD Final Res ult from Last 3 Months or Most Recently Relevant to Health Maintenance Insurance [employer] [id number] Care Teams [employer] Relationship Specialty Start Date End Date Kole Soriano MD [address] [facility] [place] [address] PCP - General Family Practice 11/22/20
[2024-09-20 06:48] LABS: Lactate* 0.9 mmol/L (0.5-1.9)
[2024-09-20 07:12] LABS: Albumin* 4.4 g/dL (3.3-5.0); Chloride* 105 mmol/L (96-114)
[2024-09-20 07:13] LABS: Potassium* 4.1 mmol/L (3.6-5.1); Sodium* 136 mmol/L (135-149)
[2024-09-20 07:15] LABS: Alanine Aminotransferase* 23 U/L (4-50); Alkaline Phosphatase* 48 U/L (40-150); Anion Gap 6 mEq/L (7-15); Aspartate Amino Transferase* 30 U/L (12-35); Bilirubin Direct* 0.3 mg/dL (0.0-0.5); Bilirubin Total* 0.7 mg/dL (0.1-1.5); Blood Urea Nitrogen* 14 mg/dL (7-30); Carbon Dioxide* 25 mmol/L (20-32); Creatinine* 0.8 mg/dL (0.5-1.5); Estimated Glomerular Filt Rate 96 ml/min; Glucose* 97 mg/dL (60-115); Lipase* 72 U/L (23-300); Total Protein* 7.3 g/dL (6.0-8.3)
[2024-09-20 07:16] LABS: Calcium* 9.6 mg/dL (8.4-10.6); Magnesium* 2.2 mg/dL (1.5-2.6)
[2024-09-20 07:22] LABS: Basophils Absolute Auto 0.02 K/uL (0.00-0.30); Basophils Percent Auto 0.3 % (0.0-3.0); Eosinophils Absolute Auto 0.03 K/uL (0.00-0.50); Eosinophils Percent Auto 0.4 % (0.0-7.0); Hemoglobin* 13.7 gm/dL (13.5-17.5); Immature Granulocytes Abs Auto 0.02 K/uL (0.00-0.30); Immature Granulocytes Pct Auto 0.3 %; Lymphocytes Percent Auto 18.9 % (20-44); Mean Corpuscular HGB Conc 33 gm/dL (32-36); Mean Corpuscular Hemoglobin 30 pg (26-34); Mean Corpuscular Volume 93 fL (80-100); Monocytes Percent Auto 9.6 % (0.0-11.0); Neutrophils Absolute Auto 5.55 K/uL (1.7-7.0); Neutrophils Percent Auto 70.5 % (42.0-72.0); Platelet Count* 285 K/uL (140-440); RDW Coefficient of Variation % 13.6 % (11.5-15.5); Red Blood Count 4.52 m/uL (4.30-5.90); White Blood Count* 7.85 K/uL (4.50-11.00)
[2024-09-20 07:27] LABS: PCR FLU A Negative PCR FLU A (Negative); PCR FLU B Negative PCR FLU B (Negative); PCR RSV Negative PCR RSV (Negative); SARS PCR* Negative SARS-CoV-2 (Negative)
[2024-09-20 07:32] LABS: Appearance Urine Clear (Clear); Bilirubin Urine Negative (Negative); Blood Urine Trace-intact (Negative); Color Urine Yellow (Yellow); Glucose Urine Negative (Negative); Ketones Urine 2+ (Negative); Leukocyte Esterase Urine Negative (Negative); Nitrite Urine Negative (Negative); Protein Urine Negative (Negative); Urobilinogen Urine 0.2 (0.2-1.0)
[2024-09-20 07:34] LABS: Slide Review Reflex No
[2024-09-20 07:38] LABS: Acetaminophen* < 10.0 ug/mL (10.0-30.0); C Reactive Protein* < 0.5 mg/dL (0.5-1.0); Ethanol* < 0.00 % (0.01-0.03); Salicylate* < 1.0 mg/dL (1.0-10)
[2024-09-20 07:48] LABS: Mucus Urine Few; RBC Urine 0-2 (0-2); WBC Urine 0-2 (0-5)
[2024-09-20 08:32] LABS: Procalcitonin* 0.04 ng/mL (<0.50); Troponin I* < 0.01 ng/mL (0.01-0.04)
[2024-09-20 08:39] LABS: INR 1.07 (0.91-1.10); Prothrombin Time 14.6 Seconds
== END 2024-09-20 09:26 | disposition home or self-care (01) ==
PROVIDERS: Emergency Provider Family Medicine; PCP Family Medicine
DX: R53.1 Weakness (principal)
CPT/HCPCS: 36415; 80048; 80076; 80143; 80179; 81001; 82077; 83605; 83690; 83735; 84145; 84443; 84484; 85025; 85610; 86140; 87086; 87631; 93005; 94761; 99284; J7030